=== PATIENT | male | born 1975 | race Caucasian/White ===

== ENCOUNTER 2018-09-06 02:13 | Inpatient (IN) | payer OTHER ==
[~2018-09-06] VITALS: Ht 182.9 cm; Wt 93.1 kg
[~2018-09-06 02:13] MED LIST: AMOX500C PO; BUTA1CAP29 PO; DIPH25CA58 PO; IBUP-1060 PO; LISI1TAB5 PO; ONDA4TAB7 PO; SUMA25TA3 PO; TRAM50TA PO
[2018-09-06] MEDS ORDERED: IV NORMAL SALINE 1000ML BAG 1,000 ML IV SCH (02:30)
[2018-09-06] MEDS ORDERED: fentaNYL PF VIAL 100 MCG/2 ML VIAL IV PRN ×2 (02:30→05:00)
[2018-09-06] MEDS ORDERED: ONDANSETRON PF 4 MG/2 ML VIAL. IV ONE (02:30)
--- NOTE | 2018-09-06 02:31 | PHYS DOC ---
Past Medical History Past Medical History: Hypertension, Migraines Additional Past Medical Histor: menigitis, anam mtn spotted fever Past Surgical History: Other Additional Past Surgical Histo: lip and tongue Alcohol Use: Occasionally Drug Use: None Adult General Chief Complaint Chief Complaint: ABDOMINAL PAIN HPI HPI Patient is a 43-year-old male who presents with complaint of severe right upper quadrant abdominal pain that started yesterday. Patient states that throughout the entire day he was having some degree of pain but states that when he woke up this morning the pain was severe. He rates pain at a 10 out of 10 and states that it is difficult to walk due to level of pain. He denies any nausea or vomiting. He also denies any diarrhea and has had no fever. Patient states that pain is worsened with movement and with palpation. He states that there are no alleviating factors. Review of Systems Review of Systems Constitutional: Denies fever or chills [] Respiratory: Denies cough or shortness of breath [] Cardiovascular: No additional information not addressed in HPI [] GI: Complains of right upper abdominal pain without vomiting or diarrhea [] Musculoskeletal: Denies back pain or joint pain [] All other systems were reviewed and found to be within normal limits, except as documented in this note. Current Medications Current Medications Current Medications Medications (Trade) Dose Ordered Sig/Asmita Start Time Stop Time Status Last Admin Dose Admin Fentanyl Citrate (Fentanyl 2ml Vial) 50 mcg PRN Q15MIN PRN 09/06/18 02:30 09/07/18 02:29 09/06/18 02:46 50 MCG Labetalol HCl (Normodyne Iv Push) 10 mg 1X ONCE 09/06/18 03:00 09/06/18 03:01 DC 09/06/18 03:54 10 MG Ondansetron HCl (Zofran) 4 mg 1X ONCE 09/06/18 02:30 09/06/18 02:31 DC 09/06/18 02:46 4 MG Sodium Chloride 1,000 ml @ 1,000 mls/hr Q1H 09/06/18 02:30 09/06/18 03:29 DC 09/06/18 02:46 1,000 MLS/HR Allergies Allergies Allergies Coded Allergies Type Severity Reaction Last Updated Verified haloperidol Allergy Intermediate "lock jaw" 04/10/14 Yes hydromorphone Allergy Mild Itching 07/26/15 Yes oxycodone Allergy Mild Itching 07/26/15 Yes Physical Exam Physical Exam Constitutional: Well developed, well nourished, in moderate distress. [] HENT: Normocephalic, atraumatic, bilateral external ears normal, oropharynx moist, no oral exudates, nose normal. [] Eyes: PERRLA, EOMI, conjunctiva normal, no discharge. [] Neck: Normal range of motion, no tenderness, supple, no stridor. [] Cardiovascular: Regular rate and rhythm [] Lungs & Thorax: Bilateral breath sounds clear to auscultation [] Abdomen: Bowel sounds diminished, soft, with significant tenderness to palpation in the right mid and upper abdomen. [] Skin: Warm, dry, no erythema, no rash. [] Extremities: No tenderness, no cyanosis, no clubbing, ROM intact, no edema. [] Neurologic: Alert and oriented X 3, no focal deficits noted. [] Current Patient Data Vital Signs Vital Signs Date Time Temp Pulse Resp B/P (MAP) Pulse Ox O2 Delivery O2 Flow Rate FiO2 09/06/18 04:35 74 187/131 (149) 95 Room Air 09/06/18 02:46 26 09/06/18 02:15 97.5 97.5 Lab Values Laboratory Tests Test 09/06/18 02:25 09/06/18 02:30 Urine Collection Type Unknown Urine Color Yellow Urine Clarity Clear Urine pH 6.5 Urine Specific [place] 1.015 Urine Protein Negative mg/dL (NEG-TRACE) Urine Glucose (UA) Negative mg/dL (NEG) Urine Ketones (Stick) Negative mg/dL (NEG) Urine Blood Negative (NEG) Urine Nitrite Negative (NEG) Urine Bilirubin Negative (NEG) Urine Urobilinogen Dipstick 0.2 mg/dL (0.2 mg/dL) Urine Leukocyte Esterase Negative (NEG) Urine RBC Occ /HPF (0-2) Urine WBC Occ /HPF (0-4) Urine Squamous Epithelial Cells Occ /LPF Urine Bacteria 0 /HPF (0-FEW) White Blood Count 12.8 x10^3/uL (4.0-11.0) H Red Blood Count 4.71 x10^6/uL (4.30-5.70) Hemoglobin 14.8 g/dL (13.0-17.5) Hematocrit 41.6 % (39.0-53.0) Mean Corpuscular Volume 88 fL (79-100) Mean Corpuscular Hemoglobin 31 pg (25-35) Mean Corpuscular Hemoglobin Concent 36 g/dL (31-37) Red Cell Distribution Width 13.8 % (11.5-14.5) Platelet Count 253 x10^3/uL (140-400) Neutrophils (%) (Auto) 62 % (31-73) Lymphocytes (%) (Auto) 27 % (24-48) Monocytes (%) (Auto) 8 % (0-9) Eosinophils (%) (Auto) 2 % (0-3) Basophils (%) (Auto) 1 % (0-3) Neutrophils # (Auto) 7.9 x10^3uL (1.8-7.7) H Lymphocytes # (Auto) 3.5 x10^3/uL (1.0-4.8) Monocytes # (Auto) 1.1 x10^3/uL (0.0-1.1) Eosinophils # (Auto) 0.3 x10^3/uL (0.0-0.7) Basophils # (Auto) 0.1 x10^3/uL (0.0-0.2) Sodium Level 137 mmol/L (136-145) Potassium Level 3.3 mmol/L (3.5-5.1) L Chloride Level 99 mmol/L (98-107) Carbon Dioxide Level 30 mmol/L (21-32) Anion Gap 8 (6-14) Blood Urea Nitrogen 23 mg/dL (8-26) Creatinine 1.9 mg/dL (0.7-1.3) H Estimated GFR (Cockcroft-Gault) 38.5 BUN/Creatinine Ratio 12 (6-20) Glucose Level 114 mg/dL (70-99) H Calcium Level 9.4 mg/dL (8.5-10.1) Total Bilirubin 0.4 mg/dL (0.2-1.0) Aspartate Amino Transferase (AST) 17 U/L (15-37) Alanine Aminotransferase (ALT) 30 U/L (16-63) Alkaline Phosphatase 127 U/L (46-116) H Total Protein 7.8 g/dL (6.4-8.2) Albumin 3.9 g/dL (3.4-5.0) Albumin/Globulin Ratio 1.0 (1.0-1.7) Lipase 139 U/L (73-393) Laboratory Tests 09/06/18 02:30 Laboratory Tests 09/06/18 02:30 EKG EKG [] Interpretation Time: EKG demonstrates normal sinus rhythm with rate of 79. Radiology/Procedures Radiology/Procedures [] Impressions: PROCEDURE: CT ABDOMEN PELVIS WO CONTRAST INDICATION: right upper quadrant pain COMPARISON: None. TECHNIQUE: Axial CT images obtained through the abdomen and pelvis without contrast. Limited assessment of solid organ structures and vasculature secondary to lack of intravenous contrast.. One or more of the following individualized dose reduction techniques were utilized for this examination: 1. Automated exposure control; 2. Adjustment of the mA and/or kV according to patient size; 3. Use of iterative reconstruction technique. FINDINGS: Mild dependent airspace opacities. Could be from atelectasis. Abdominal aorta is not aneurysmal. Fat-containing right greater than left inguinal hernia. Mild calcific atherosclerosis. Cystic lesion right lobe the liver measuring up to 18 mm. The gallbladder appears distended with haziness of adjacent fat. No peripancreatic fluid collection. There are some enlarged lymph nodes in the upper abdomen including nichole hepatis region. For example inferior to the liver measuring up to about 15 mm short axis. Spleen is unremarkable. Mild prominence of extrarenal pelvis bilaterally without definite radiopaque obstructive ureter stone. The urinary bladder is partially distended. Colonic diverticulosis. Small free fluid in right upper quadrant. The appendix measures up to approximately 6 mm without definite adjacent inflammation. Degenerative changes throughout spine. Scattered sclerotic foci osseous structures. IMPRESSION: 1. The gallbladder appears somewhat distended at the time of exam with haziness of the adjacent fat. Would correlate with symptoms in the region. May be helpful to obtain a follow-up ultrasound and/or nuclear hepatobiliary scan to further evaluate for gallbladder inflammation given this finding. 2. There are some enlarged lymph nodes within the upper abdomen. Could be reactive in nature but follow-up will be needed to ensure no growth to exclude neoplastic causes. Electronically signed by: Rohit Amin MD (09/06/2018 4:40 AM) [facility] [place] DICTATED and SIGNED BY: ROHIT AMIN MD DATE: 09/06/18 0430 Course & Med Decision Making Course & Med Decision Making Pertinent Labs and Imaging studies reviewed. (See chart for details) [] Dragon Disclaimer Dragon Disclaimer This electronic medical record was generated, in whole or in part, using a voice recognition dictation system. Departure Departure Impression: Primary Impression: Accelerated hypertension Additional Impressions: Right upper quadrant pain Acute kidney injury Disposition: ADMITTED INPATIENT Admitting Physician: Other Condition: IMPROVED Referrals: NO PCP (PCP) Problem Qualifiers SAMMY SAENZ Jr. DO Sep 06, 2018 02:31
[2018-09-06 02:51] LABS: BILIRUBIN,URINE NEGATIVE (NEG); CLARITY,URINE CLEAR; COLOR,URINE YELLOW; NITRITE,URINE NEGATIVE (NEG); PH,URINE 6.5; PROTEIN,URINE NEGATIVE (NEG-TRACE); UROBILINOGEN,URINE 0.2 mg/dL (0.2 mg/dL)
[2018-09-06 02:52] LABS: BASO # 0.1 x10^3/uL (0.0-0.2); BASO % 1 % (0-3); EOS # 0.3 x10^3/uL (0.0-0.7); EOS % 2 % (0-3); HEMATOCRIT 41.6 % (39.0-53.0); HEMOGLOBIN 14.8 g/dL (13.0-17.5); LYMPH # 3.5 x10^3/uL (1.0-4.8); LYMPH % 27 % (24-48); MEAN CORPUSCULAR HEMOGLOBIN 31 pg (25-35); MEAN CORPUSCULAR HGB CONC 36 g/dL (31-37); MEAN CORPUSCULAR VOLUME 88 fL (79-100); MONO # 1.1 x10^3/uL (0.0-1.1); MONO % 8 % (0-9); NEUT # 7.9 x10^3uL (1.8-7.7); NEUT % 62 % (31-73); PLATELET COUNT 253 x10^3/uL (140-400); RED BLOOD COUNT 4.71 x10^6/uL (4.30-5.70); RED CELL DISTRIBUTION WIDTH 13.8 % (11.5-14.5); WHITE BLOOD COUNT 12.8 x10^3/uL (4.0-11.0)
[2018-09-06 02:54] LABS: CALCIUM 9.4 mg/dL (8.5-10.1); CREATININE 1.9 mg/dL (0.7-1.3); GFR 38.5; POTASSIUM 3.3 mmol/L (3.5-5.1)
[2018-09-06 02:58] LABS: BACTERIA,URINE 0 /HPF (0-FEW); RBC,URINE OCC /HPF (0-2); SQUAMOUS EPITHELIAL CELL,UR OCC /LPF; WBC,URINE OCC /HPF (0-4)
[2018-09-06 02:59] LABS: ALBUMIN 3.9 g/dL (3.4-5.0); TOTAL BILIRUBIN 0.4 mg/dL (0.2-1.0); TOTAL PROTEIN 7.8 g/dL (6.4-8.2)
[2018-09-06] MEDS ORDERED: LABETALOL 20 MG/4 ML DISP.SYRIN. IVP ONE ×2 (03:00→05:15)
--- NOTE | 2018-09-06 04:44 | RAD ---
INDICATION: right upper quadrant pain COMPARISON: None. TECHNIQUE: Axial CT images obtained through the abdomen and pelvis without contrast. Limited assessment of solid organ structures and vasculature secondary to lack of intravenous contrast.. One or more of the following individualized dose reduction techniques were utilized for this examination: 1. Automated exposure control; 2. Adjustment of the mA and/or kV according to patient size; 3. Use of iterative reconstruction technique. FINDINGS: Mild dependent airspace opacities. Could be from atelectasis. Abdominal aorta is not aneurysmal. Fat-containing right greater than left inguinal hernia. Mild calcific atherosclerosis. Cystic lesion right lobe the liver measuring up to 18 mm. The gallbladder appears distended with haziness of adjacent fat. No peripancreatic fluid collection. There are some enlarged lymph nodes in the upper abdomen including nichole hepatis region. For example inferior to the liver measuring up to about 15 mm short axis. Spleen is unremarkable. Mild prominence of extrarenal pelvis bilaterally without definite radiopaque obstructive ureter stone. The urinary bladder is partially distended. Colonic diverticulosis. Small free fluid in right upper quadrant. The appendix measures up to approximately 6 mm without definite adjacent inflammation. Degenerative changes throughout spine. Scattered sclerotic foci osseous structures. IMPRESSION: 1. The gallbladder appears somewhat distended at the time of exam with haziness of the adjacent fat. Would correlate with symptoms in the region. May be helpful to obtain a follow-up ultrasound and/or nuclear hepatobiliary scan to further evaluate for gallbladder inflammation given this finding. 2. There are some enlarged lymph nodes within the upper abdomen. Could be reactive in nature but follow-up will be needed to ensure no growth to exclude neoplastic causes. Electronically signed by: Sherif Amin MD (09/06/2018 4:40 AM) [facility]
[2018-09-06] MEDS ORDERED: ONDANSETRON PF 4 MG/2 ML VIAL. IV PRN (05:00)
[2018-09-06] MEDS ORDERED: LABETALOL 20 MG/4 ML DISP.SYRIN. IVP PRN (05:15)
--- NOTE | 2018-09-06 06:05 | RAD ---
INDICATION : pain x 5 hrs COMPARISON: CT from earlier same day TECHNIQUE: Multiple ultrasound images obtained through the abdomen in grayscale and color. FINDINGS: Liver: There is some apparent heterogeneity. 17 mm cyst. Septation. Gallbladder: Gallbladder wall measures up to about 8 mm with some heterogeneity. There are some internal echoes seen within the gallbladder dependently. IVC: Partially distended at level of liver. Common Bile Duct: 4 mm at pancreatic head, partially seen. Pancreas: Largely obscured. Right Kidney: No hydronephrosis. IMPRESSION: 1. The gallbladder wall appears thickened and heterogenous. Gallbladder wall thickening is a nonspecific finding and can be seen with primary gallbladder inflammation, reactive to adjacent hepatic inflammation or systemic process such as hypoproteinemia. If more complete characterization is desired nuclear hepatobiliary scan could further evaluate for cholecystitis given this finding. There is also some internal echoes within the gallbladder which could be from some debris/sludge. Heterogenous appearance of the liver. Electronically signed by: Sherif Amin MD (09/06/2018 6:00 AM) [facility]
--- NOTE | 2018-09-06 06:42 | EKG ---
[facility] [address] [place] [address] Test Date: 2018-09-06 Test Time: 03:11:23 Pat Name: NORMA MEYER Department: Room: 263 1 Gender: M [employer] Operator: : 1975 Requested By: SAMMY SAENZ Order Number: [id number] Reading MD: Ryan Foster MD Measurements Intervals [place] Rate: 79 P: 58 NH: 142 QRS: -7 QRSD: 108 T: 22 QT: 436 QTc: 501 Interpretive Statements SINUS RHYTHM PROLONGED QTC Electronically Signed On 09-07-2018 12:08:52 [employer] by Ryan Foster MD
[2018-09-06 07:39] VITALS: BP 164/117
[2018-09-06] MEDS: IV NORMAL SALINE 1000ML BAG 1,000 ML IV SCH ×3 (08:10→21:00)
--- NOTE | 2018-09-06 08:15 | NUR ---
The patient, NORMA MEYER, 43 y/o, M admitted by VISHNU GARCIA MD, was given written information regarding hospital policies, unit procedures and contact persons. Valuables were checked
[2018-09-06] MEDS ORDERED: ONDANSETRON ODT 4 MG TAB.RAPDIS. PO PRN (08:45)
[2018-09-06] MEDS ORDERED: NICOTINE 14MG PATCH. TD PRN (08:45)
[2018-09-06] MEDS ORDERED: diphenhydrAMINE HCL 25 MG CAPSULE PO PRN (08:45)
--- NOTE | 2018-09-06 09:12 | PDOC1 ---
History and Physical Date of Admission Date of Admission DATE: 09/06/18 TIME: 09:00 Identification/Chief Complaint Chief Complaint abd pain, acute w/ nausea Source Source: Chart review, Patient History of Present Illness History of Present Illness Mr. Joyce, is a 43-year-old male admit overnight w/ severe right upper quadrant abdominal pain. Woke himfrom sleep, w. severe pain, had some mild pain for 12 hours before. He rated pain at a 10 out of 10, better now after IV meds. . He denies any nausea or vomiting. ] pain is worse with movement no fever or diarrhea, no travel. 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, Past Medical History Cardiovascular: HTN CENTRAL NERVOUS SYSTEM: Migraine Infectious disease: No pertinent hx ENT: No pertinent hx Renal/: No pertinent hx Endocrine: No pertinent hx Dermatology: No pertinent hx Past Surgical History Past Surgical History: No pertinent history Social History Smoke: <1 pack per day ALCOHOL: rare Drugs: None Current Problem List Problem List Problems Medical Problems: (1) Accelerated hypertension Status: Acute (2) Acute kidney injury Status: Acute (3) Right upper quadrant pain Status: Acute Current Medications Current Medications Current Medications Fentanyl Citrate (Fentanyl 2ml Vial) 50 mcg PRN Q15MIN PRN IV PAIN GREATER THAN 3/10 Last administered on 09/06/18at 02:46; Start 09/06/18 at 02:30; Stop at 02:29 Sodium Chloride 1,000 ml @ 1,000 mls/hr Q1H IV Last administered on 09/06/18at 02:46; Start 09/06/18 at 02:30; Stop 09/06/18 at 03:29; Status DC Ondansetron HCl (Zofran) 4 mg 1X ONCE IV Last administered on 09/06/18at 02:46 ; Start 09/06/18 at 02:30; Stop 09/06/18 at 02:31; Status DC Labetalol HCl (Normodyne Iv Push) 10 mg 1X ONCE IVP Last administered on at 03:54; Start 09/06/18 at 03:00; Stop 09/06/18 at 03:01; Status DC Labetalol HCl (Normodyne Iv Push) 10 mg 1X ONCE IVP Last administered on at 07:01; Start 09/06/18 at 05:15; Stop 09/06/18 at 05:16; Status DC Ondansetron HCl (Zofran) 4 mg PRN Q8HRS PRN IV NAUSEA/VOMITING; Start 09/06/18 at 05:00; Stop 09/07/18 at 04:59 Fentanyl Citrate (Fentanyl 2ml Vial) 50 mcg PRN Q1HR PRN IV PAIN; Start at 05:00; Stop 09/07/18 at 04:59 Sodium Chloride 1,000 ml @ 125 mls/hr Q8H IV Last administered on 09/06/18at 08 :10; Start 09/06/18 at 05:00; Stop 09/07/18 at 04:59 Labetalol HCl (Normodyne Iv Push) 10 mg PRN Q2HR PRN IVP SBP>185; Start at 05:15 Amlodipine Besylate (Norvasc) 5 mg DAILY PO ; Start 09/06/18 at 09:00 Tramadol HCl (Ultram) 50 mg PRN Q6HRS PRN PO PAIN; Start 09/06/18 at 08:45 Diphenhydramine HCl (Benadryl) 25 mg PRN Q6HRS PRN PO ITCHING; Start 09/06/18 at 08:45 Ondansetron HCl (Zofran Odt) 4 mg PRN Q8HRS PRN PO NAUSEA/VOMITING; Start 09/06 at 08:45 Nicotine (Nicoderm Cq 14mg) 1 patch PRN DAILY PRN TD SMOKING CESSATION; Start 09/06/18 at 08:45 Active Scripts Active Zofran (Ondansetron Hcl) 4 Mg Tablet 1 Tab PO Q8HRS PRN Reported Tramadol Hcl 50 Mg Tablet 1 Tab PO TID Ibuprofen 800 Mg Tablet 800 Mg PO Q6H PRN Benadryl (Diphenhydramine Hcl) 25 Mg Capsule 25 Mg PO PRN Q6HRS PRN Lisinopril-Hctz 20-12.5 Mg Tab (Lisinopril/Hydrochlorothiazide) 1 Each Tablet 1 Tab PO DAILY Allergies Allergies: Coded Allergies: haloperidol (Verified Allergy, Intermediate, "lock jaw", 04/10/14) hydromorphone (Verified Allergy, Mild, Itching, 07/26/15) LORTAB OK oxycodone (Verified Allergy, Mild, Itching, 07/26/15) LORTAB OK ROS General: No: Chills, Night Sweats, Fatigue, Malaise, Appetite, Other PSYCHOLOGICAL ROS: No: Anxiety, Behavioral Disorder, Concentration difficultie , Decreased libido, Depression, Disorientation, Hallucinations, Hostility, Irritablity, Memory difficulties, Mood Swings, Obsessive thoughts, Physical abuse, Sexual abuse, Sleep disturbances, Suicidal ideation, Other Eyes: No Blurry vision, No Decreased vision, No Double vision, No Dry eyes, No Excessive tearing, No Eye Pain, No Itchy Eyes, No Loss of vision, No Photophobia , No Scotomata, No Uses contacts, No Uses glasses, No Other HEENT: No: Heacaches, Visual Changes, Hearing change, Nasal congestion, Nasal discharge, Oral lesions, Sinus pain, Sore Throat, Epistaxis, Sneezing, Snoring, Tinnitus, Vertigo, Vocal changes, Other Respiratory: No: Cough, Hemoptysis, Orthopnea, Pleuritic Pain, Shortness of breath, SOB with excertion, Sputum Changes, Stridor, Tachypnea, Wheezing, Other Cardiovascular: No Chest Pain, No Palpitations, No Orthopnea, No Paroxysmal Noc. Dyspnea, No Edema, No Lt Headedness, No Other Gastrointestinal: No Nausea, No Vomiting, No Abdominal Pain, No Diarrhea, No Constipation, No Melena, No Hematochezia, No Other Genitourinary: No Dysuria, No Frequency, No Incontinence, No Hematuria, No Retention, No Discharge, No Urgency, No Pain, No Flank Pain, No Other, No , No , No , No , No , No , No Musculoskeletal: Yes Other; No Gait Disturbance, No Joint Pain, No Joint Stiffness, No Joint Swelling, No Muscle Pain, No Muscular Weakness, No Pain In:, No Swelling In: Neurological: No Behavorial Changes, No Bowel/Bladder ControlChng, No Confusion , No Dizziness, No Gait Disturbance, No Headaches, No Impaired Coord/balance, No Memory Loss, No Numbness/Tingling, No Seizures, No Speech Problems, No Tremors, No Visual Changes, No Weakness, No Other Skin: No Dry Skin, No Eczema, No Hair Changes, No Lumps, No Mole Changes, No Mottling, No Nail Changes, No Pruritus, No Rash, No Skin Lesion Changes, No Other, No Acne Physical Exam General: Alert, Oriented X3, Cooperative, mild distress HEENT: PERRLA, EOMI, Mucous membr. moist/pink Lungs: Clear to auscultation Heart: S1S2, no gallops, no murmurs Abdomen: Normal bowel sounds, Soft, Other (tender, guarding to palpation, right, ) Extremities: No cyanosis, No edema, Normal pulses Skin: No rashes, No breakdown, No significant lesion Neuro: Normal gait, Normal speech, Sensation intact, Cranial nerves 3-12 NL Psych/Mental Status: Mental status NL, Mood NL Vitals Vitals Vital Signs Date Time Temp Pulse Resp B/P (MAP) Pulse Ox O2 Delivery O2 Flow Rate FiO2 09/06/18 07:39 97.8 67 12 164/117 (133) 97 Room Air 97.8 Labs Labs Laboratory Tests Test 09/06/18 02:25 09/06/18 02:30 Urine Collection Type Unknown Urine Color Yellow Urine Clarity Clear Urine pH 6.5 Urine Specific [place] 1.015 Urine Protein Negative mg/dL (NEG-TRACE) Urine Glucose (UA) Negative mg/dL (NEG) Urine Ketones (Stick) Negative mg/dL (NEG) Urine Blood Negative (NEG) Urine Nitrite Negative (NEG) Urine Bilirubin Negative (NEG) Urine Urobilinogen Dipstick 0.2 mg/dL (0.2 mg/dL) Urine Leukocyte Esterase Negative (NEG) Urine RBC Occ /HPF (0-2) Urine WBC Occ /HPF (0-4) Urine Squamous Epithelial Cells Occ /LPF Urine Bacteria 0 /HPF (0-FEW) White Blood Count 12.8 x10^3/uL (4.0-11.0) Red Blood Count 4.71 x10^6/uL (4.30-5.70) Hemoglobin 14.8 g/dL (13.0-17.5) Hematocrit 41.6 % (39.0-53.0) Mean Corpuscular Volume 88 fL (79-100) Mean Corpuscular Hemoglobin 31 pg (25-35) Mean Corpuscular Hemoglobin Concent 36 g/dL (31-37) Red Cell Distribution Width 13.8 % (11.5-14.5) Platelet Count 253 x10^3/uL (140-400) Neutrophils (%) (Auto) 62 % (31-73) Lymphocytes (%) (Auto) 27 % (24-48) Monocytes (%) (Auto) 8 % (0-9) Eosinophils (%) (Auto) 2 % (0-3) Basophils (%) (Auto) 1 % (0-3) Neutrophils # (Auto) 7.9 x10^3uL (1.8-7.7) Lymphocytes # (Auto) 3.5 x10^3/uL (1.0-4.8) Monocytes # (Auto) 1.1 x10^3/uL (0.0-1.1) Eosinophils # (Auto) 0.3 x10^3/uL (0.0-0.7) Basophils # (Auto) 0.1 x10^3/uL (0.0-0.2) Sodium Level 137 mmol/L (136-145) Potassium Level 3.3 mmol/L (3.5-5.1) Chloride Level 99 mmol/L (98-107) Carbon Dioxide Level 30 mmol/L (21-32) Anion Gap 8 (6-14) Blood Urea Nitrogen 23 mg/dL (8-26) Creatinine 1.9 mg/dL (0.7-1.3) Estimated GFR (Cockcroft-Gault) 38.5 BUN/Creatinine Ratio 12 (6-20) Glucose Level 114 mg/dL (70-99) Calcium Level 9.4 mg/dL (8.5-10.1) Total Bilirubin 0.4 mg/dL (0.2-1.0) Aspartate Amino Transf (AST/SGOT) 17 U/L (15-37) Alanine Aminotransferase (ALT/SGPT) 30 U/L (16-63) Alkaline Phosphatase 127 U/L (46-116) Total Protein 7.8 g/dL (6.4-8.2) Albumin 3.9 g/dL (3.4-5.0) Albumin/Globulin Ratio 1.0 (1.0-1.7) Lipase 139 U/L (73-393) Laboratory Tests Test 09/06/18 02:25 09/06/18 02:30 Urine Collection Type Unknown Urine Color Yellow Urine Clarity Clear Urine pH 6.5 Urine Specific [place] 1.015 Urine Protein Negative mg/dL (NEG-TRACE) Urine Glucose (UA) Negative mg/dL (NEG) Urine Ketones (Stick) Negative mg/dL (NEG) Urine Blood Negative (NEG) Urine Nitrite Negative (NEG) Urine Bilirubin Negative (NEG) Urine Urobilinogen Dipstick 0.2 mg/dL (0.2 mg/dL) Urine Leukocyte Esterase Negative (NEG) Urine RBC Occ /HPF (0-2) Urine WBC Occ /HPF (0-4) Urine Squamous Epithelial Cells Occ /LPF Urine Bacteria 0 /HPF (0-FEW) White Blood Count 12.8 x10^3/uL (4.0-11.0) Red Blood Count 4.71 x10^6/uL (4.30-5.70) Hemoglobin 14.8 g/dL (13.0-17.5) Hematocrit 41.6 % (39.0-53.0) Mean Corpuscular Volume 88 fL (79-100) Mean Corpuscular Hemoglobin 31 pg (25-35) Mean Corpuscular Hemoglobin Concent 36 g/dL (31-37) Red Cell Distribution Width 13.8 % (11.5-14.5) Platelet Count 253 x10^3/uL (140-400) Neutrophils (%) (Auto) 62 % (31-73) Lymphocytes (%) (Auto) 27 % (24-48) Monocytes (%) (Auto) 8 % (0-9) Eosinophils (%) (Auto) 2 % (0-3) Basophils (%) (Auto) 1 % (0-3) Neutrophils # (Auto) 7.9 x10^3uL (1.8-7.7) Lymphocytes # (Auto) 3.5 x10^3/uL (1.0-4.8) Monocytes # (Auto) 1.1 x10^3/uL (0.0-1.1) Eosinophils # (Auto) 0.3 x10^3/uL (0.0-0.7) Basophils # (Auto) 0.1 x10^3/uL (0.0-0.2) Sodium Level 137 mmol/L (136-145) Potassium Level 3.3 mmol/L (3.5-5.1) Chloride Level 99 mmol/L (98-107) Carbon Dioxide Level 30 mmol/L (21-32) Anion Gap 8 (6-14) Blood Urea Nitrogen 23 mg/dL (8-26) Creatinine 1.9 mg/dL (0.7-1.3) Estimated GFR (Cockcroft-Gault) 38.5 BUN/Creatinine Ratio 12 (6-20) Glucose Level 114 mg/dL (70-99) Calcium Level 9.4 mg/dL (8.5-10.1) Total Bilirubin 0.4 mg/dL (0.2-1.0) Aspartate Amino Transf (AST/SGOT) 17 U/L (15-37) Alanine Aminotransferase (ALT/SGPT) 30 U/L (16-63) Alkaline Phosphatase 127 U/L (46-116) Total Protein 7.8 g/dL (6.4-8.2) Albumin 3.9 g/dL (3.4-5.0) Albumin/Globulin Ratio 1.0 (1.0-1.7) Lipase 139 U/L (73-393) VTE Prophylaxis Ordered VTE Prophylaxis Devices: Yes VTE Pharmacological Prophylaxi: Yes Assessment/Plan Assessment/Plan acute RUQ pain, poss acute leann, US not conclusive, will order HIDA scan, consult GI and gen surg. accelerated htn, prior chronic SIRS, tachypnea and leukocytosis, no fever, and vitals improved from admit without antibiotics, tobacco use disorder JULIAN RODGERS MD Sep 06, 2018 09:12
--- NOTE | 2018-09-06 09:33 | PDOC2 ---
KAYLA PADILLA [employer] 09/06/18 0933: CONSULT Date of Consult Date of Consult DATE: 09/06/18 TIME: 09:26 Reason for Consult Reason for Consult: possible cholecystitis Referring Physician Referring Physician: Dr Mtz Identification/Chief Complaint Chief Complaint abdominal pain Source Source: Chart review, Patient History of Present Illness Reason for Visit: admitted with abdominal pain. Reports started Thursday, dull, aching, last night significantly worse, RUQ, epigastric. Associated nausea, no emesis. No constipation or diarrhea. No history of similar issues. Past Medical History Cardiovascular: HTN CENTRAL NERVOUS SYSTEM: Migraine Infectious disease: No pertinent hx ENT: No pertinent hx Renal/: No pertinent hx Endocrine: No pertinent hx Dermatology: No pertinent hx Past Surgical History Past Surgical History: No pertinent history Family History Family History: Other (cholelithiasis ) Social History <1 pack per day ALCOHOL: rare Drugs: Marijuana Lives: with Family Current Problem List Problem List Problems Medical Problems: (1) Accelerated hypertension Status: Acute (2) Acute kidney injury Status: Acute (3) Right upper quadrant pain Status: Acute Current Medications Current Medications Current Medications Fentanyl Citrate (Fentanyl 2ml Vial) 50 mcg PRN Q15MIN PRN IV PAIN GREATER THAN 3/10 Last administered on 09/06/18at 02:46; Start 09/06/18 at 02:30; Stop at 02:29 Sodium Chloride 1,000 ml @ 1,000 mls/hr Q1H IV Last administered on 09/06/18at 02:46; Start 09/06/18 at 02:30; Stop 09/06/18 at 03:29; Status DC Ondansetron HCl (Zofran) 4 mg 1X ONCE IV Last administered on 09/06/18at 02:46 ; Start 09/06/18 at 02:30; Stop 09/06/18 at 02:31; Status DC Labetalol HCl (Normodyne Iv Push) 10 mg 1X ONCE IVP Last administered on at 03:54; Start 09/06/18 at 03:00; Stop 09/06/18 at 03:01; Status DC Labetalol HCl (Normodyne Iv Push) 10 mg 1X ONCE IVP Last administered on at 07:01; Start 09/06/18 at 05:15; Stop 09/06/18 at 05:16; Status DC Ondansetron HCl (Zofran) 4 mg PRN Q8HRS PRN IV NAUSEA/VOMITING; Start 09/06/18 at 05:00; Stop 09/07/18 at 04:59 Fentanyl Citrate (Fentanyl 2ml Vial) 50 mcg PRN Q1HR PRN IV PAIN; Start at 05:00; Stop 09/07/18 at 04:59 Sodium Chloride 1,000 ml @ 125 mls/hr Q8H IV Last administered on 09/06/18at 08 :10; Start 09/06/18 at 05:00; Stop 09/07/18 at 04:59 Labetalol HCl (Normodyne Iv Push) 10 mg PRN Q2HR PRN IVP SBP>185; Start at 05:15 Amlodipine Besylate (Norvasc) 5 mg DAILY PO ; Start 09/06/18 at 09:00 Tramadol HCl (Ultram) 50 mg PRN Q6HRS PRN PO PAIN; Start 09/06/18 at 08:45 Diphenhydramine HCl (Benadryl) 25 mg PRN Q6HRS PRN PO ITCHING; Start 09/06/18 at 08:45 Ondansetron HCl (Zofran Odt) 4 mg PRN Q8HRS PRN PO NAUSEA/VOMITING; Start 09/06 at 08:45 Nicotine (Nicoderm Cq 14mg) 1 patch PRN DAILY PRN TD SMOKING CESSATION; Start 09/06/18 at 08:45 Active Scripts Active Zofran (Ondansetron Hcl) 4 Mg Tablet 1 Tab PO Q8HRS PRN Reported Tramadol Hcl 50 Mg Tablet 1 Tab PO TID Ibuprofen 800 Mg Tablet 800 Mg PO Q6H PRN Benadryl (Diphenhydramine Hcl) 25 Mg Capsule 25 Mg PO PRN Q6HRS PRN Lisinopril-Hctz 20-12.5 Mg Tab (Lisinopril/Hydrochlorothiazide) 1 Each Tablet 1 Tab PO DAILY Allergies Allergies: Coded Allergies: haloperidol (Verified Allergy, Intermediate, "lock jaw", 04/10/14) hydromorphone (Verified Allergy, Mild, Itching, 07/26/15) LORTAB OK oxycodone (Verified Allergy, Mild, Itching, 07/26/15) LORTAB OK ROS General: No: Chills, Other (fevers) PSYCHOLOGICAL ROS: No: Anxiety, Depression Eyes: No Blurry vision, No Double vision HEENT: No: Heacaches, Sore Throat Hematological and Lymphatic: No: Bleeding Problems, Blood Clots Respiratory: No: Cough, Shortness of breath Cardiovascular: No Chest Pain, No Palpitations Gastrointestinal: Yes Other (see hpi) Genitourinary: No Dysuria, No Hematuria Musculoskeletal: No Joint Pain, No Muscle Pain Neurological: No Confusion, No Impaired Coord/balance Skin: No Pruritus, No Rash Physical Exam General: Alert, Oriented X3, Cooperative, No acute distress HEENT: PERRLA, Mucous membr. moist/pink Lungs: Clear to auscultation, Normal air movement Heart: Regular rate, Normal S1, Normal S2, No murmurs Abdomen: Soft, Other (TTP epigastric, RUQ) Extremities: No clubbing, No cyanosis Skin: No rashes, No breakdown Neuro: Normal gait, Normal speech Psych/Mental Status: Mental status NL, Mood NL MUSCULOSKELETAL: No joint tenderness, No deformity Vitals VITALS Vital Signs Date Time Temp Pulse Resp B/P (MAP) Pulse Ox O2 Delivery O2 Flow Rate FiO2 09/06/18 07:45 Room Air 09/06/18 07:39 97.8 67 12 164/117 (133) 97 97.8 Labs Labs Laboratory Tests Test 09/06/18 02:25 09/06/18 02:30 Urine Collection Type Unknown Urine Color Yellow Urine Clarity Clear Urine pH 6.5 Urine Specific [place] 1.015 Urine Protein Negative mg/dL (NEG-TRACE) Urine Glucose (UA) Negative mg/dL (NEG) Urine Ketones (Stick) Negative mg/dL (NEG) Urine Blood Negative (NEG) Urine Nitrite Negative (NEG) Urine Bilirubin Negative (NEG) Urine Urobilinogen Dipstick 0.2 mg/dL (0.2 mg/dL) Urine Leukocyte Esterase Negative (NEG) Urine RBC Occ /HPF (0-2) Urine WBC Occ /HPF (0-4) Urine Squamous Epithelial Cells Occ /LPF Urine Bacteria 0 /HPF (0-FEW) White Blood Count 12.8 x10^3/uL (4.0-11.0) Red Blood Count 4.71 x10^6/uL (4.30-5.70) Hemoglobin 14.8 g/dL (13.0-17.5) Hematocrit 41.6 % (39.0-53.0) Mean Corpuscular Volume 88 fL (79-100) Mean Corpuscular Hemoglobin 31 pg (25-35) Mean Corpuscular Hemoglobin Concent 36 g/dL (31-37) Red Cell Distribution Width 13.8 % (11.5-14.5) Platelet Count 253 x10^3/uL (140-400) Neutrophils (%) (Auto) 62 % (31-73) Lymphocytes (%) (Auto) 27 % (24-48) Monocytes (%) (Auto) 8 % (0-9) Eosinophils (%) (Auto) 2 % (0-3) Basophils (%) (Auto) 1 % (0-3) Neutrophils # (Auto) 7.9 x10^3uL (1.8-7.7) Lymphocytes # (Auto) 3.5 x10^3/uL (1.0-4.8) Monocytes # (Auto) 1.1 x10^3/uL (0.0-1.1) Eosinophils # (Auto) 0.3 x10^3/uL (0.0-0.7) Basophils # (Auto) 0.1 x10^3/uL (0.0-0.2) Sodium Level 137 mmol/L (136-145) Potassium Level 3.3 mmol/L (3.5-5.1) Chloride Level 99 mmol/L (98-107) Carbon Dioxide Level 30 mmol/L (21-32) Anion Gap 8 (6-14) Blood Urea Nitrogen 23 mg/dL (8-26) Creatinine 1.9 mg/dL (0.7-1.3) Estimated GFR (Cockcroft-Gault) 38.5 BUN/Creatinine Ratio 12 (6-20) Glucose Level 114 mg/dL (70-99) Calcium Level 9.4 mg/dL (8.5-10.1) Total Bilirubin 0.4 mg/dL (0.2-1.0) Aspartate Amino Transf (AST/SGOT) 17 U/L (15-37) Alanine Aminotransferase (ALT/SGPT) 30 U/L (16-63) Alkaline Phosphatase 127 U/L (46-116) Total Protein 7.8 g/dL (6.4-8.2) Albumin 3.9 g/dL (3.4-5.0) Albumin/Globulin Ratio 1.0 (1.0-1.7) Lipase 139 U/L (73-393) Laboratory Tests Test 09/06/18 02:25 09/06/18 02:30 Urine Collection Type Unknown Urine Color Yellow Urine Clarity Clear Urine pH 6.5 Urine Specific [place] 1.015 Urine Protein Negative mg/dL (NEG-TRACE) Urine Glucose (UA) Negative mg/dL (NEG) Urine Ketones (Stick) Negative mg/dL (NEG) Urine Blood Negative (NEG) Urine Nitrite Negative (NEG) Urine Bilirubin Negative (NEG) Urine Urobilinogen Dipstick 0.2 mg/dL (0.2 mg/dL) Urine Leukocyte Esterase Negative (NEG) Urine RBC Occ /HPF (0-2) Urine WBC Occ /HPF (0-4) Urine Squamous Epithelial Cells Occ /LPF Urine Bacteria 0 /HPF (0-FEW) White Blood Count 12.8 x10^3/uL (4.0-11.0) Red Blood Count 4.71 x10^6/uL (4.30-5.70) Hemoglobin 14.8 g/dL (13.0-17.5) Hematocrit 41.6 % (39.0-53.0) Mean Corpuscular Volume 88 fL (79-100) Mean Corpuscular Hemoglobin 31 pg (25-35) Mean Corpuscular Hemoglobin Concent 36 g/dL (31-37) Red Cell Distribution Width 13.8 % (11.5-14.5) Platelet Count 253 x10^3/uL (140-400) Neutrophils (%) (Auto) 62 % (31-73) Lymphocytes (%) (Auto) 27 % (24-48) Monocytes (%) (Auto) 8 % (0-9) Eosinophils (%) (Auto) 2 % (0-3) Basophils (%) (Auto) 1 % (0-3) Neutrophils # (Auto) 7.9 x10^3uL (1.8-7.7) Lymphocytes # (Auto) 3.5 x10^3/uL (1.0-4.8) Monocytes # (Auto) 1.1 x10^3/uL (0.0-1.1) Eosinophils # (Auto) 0.3 x10^3/uL (0.0-0.7) Basophils # (Auto) 0.1 x10^3/uL (0.0-0.2) Sodium Level 137 mmol/L (136-145) Potassium Level 3.3 mmol/L (3.5-5.1) Chloride Level 99 mmol/L (98-107) Carbon Dioxide Level 30 mmol/L (21-32) Anion Gap 8 (6-14) Blood Urea Nitrogen 23 mg/dL (8-26) Creatinine 1.9 mg/dL (0.7-1.3) Estimated GFR (Cockcroft-Gault) 38.5 BUN/Creatinine Ratio 12 (6-20) Glucose Level 114 mg/dL (70-99) Calcium Level 9.4 mg/dL (8.5-10.1) Total Bilirubin 0.4 mg/dL (0.2-1.0) Aspartate Amino Transf (AST/SGOT) 17 U/L (15-37) Alanine Aminotransferase (ALT/SGPT) 30 U/L (16-63) Alkaline Phosphatase 127 U/L (46-116) Total Protein 7.8 g/dL (6.4-8.2) Albumin 3.9 g/dL (3.4-5.0) Albumin/Globulin Ratio 1.0 (1.0-1.7) Lipase 139 U/L (73-393) Assessment/Plan Assessment/Plan abdominal pain--CT and US with gallbladder wall thickening, no stones, possible debride/sludge BRANDI will check HIDA, GI consult pending JOSEPH HASTINGS MD 09/06/18 1431: CONSULT Assessment/Plan Assessment/Plan Pt seen and examined. Agree with Ms. Padilla's note Pt with c/o RUQ pain, improved TTP RUQ, moderate PIPPDA-gallbladder is demonstrated, ejection fraction 32%, slightly low Given pt pain, history and lack of another source, favor proceeding with cholecystectomy in AM R/R/B/A d/w pt and pt's supportive . Risks, including, but not limited to: bleeding, infection, damage to surrounding structures, risk of anesthesia. They appear to understand, their questions are answered and they elect to proceed. Thanks for consult! KAYLA PADILLA May [employer] Sep 06, 2018 09:33 JOSEPH HASTINGS MD Sep 06, 2018 14:31
--- NOTE | 2018-09-06 10:49 | PDOC2 ---
GI CONSULT Reason For Consult: cholelithiasis, poss cystitis HPI: HPI: 43 y/o male seen in [facility] w/ Dr. Alva during HIDA scan. Reports acute onset of upper/RUQ abd pain last night, no precipitating events, no similar episodes. Some nausea w/o vomiting, no diarrhea. Currently uncomfortable w/ back pain from laying on hard table for imaging. PMH: PMH: HTN, HLD, migraines, RMSF, diverticulosis lumbar puncture FH: Family History: Other (mother, brother - GB disease) Social History: Smoke: <1 pack per day ALCOHOL: rare Drugs: Marijuana ROS: GEN: Denies fevers, chills, sweats HEENT: Denies blurred vision, sore throat CV: Denies chest pain RESP: Denies shortness of air, cough GI: Per HPI : Denies hematuria, dysuria ENDO: Denies weight changes NEURO: Denies confusion, dizziness MSK: Denies weakness, joint pain/swelling SKIN: Denies jaundice, pruritus Vitals: Vitals: Vital Signs Date Time Temp Pulse Resp B/P (MAP) Pulse Ox O2 Delivery O2 Flow Rate FiO2 09/06/18 07:45 Room Air 09/06/18 07:39 97.8 67 12 164/117 (133) 97 97.8 Labs: Labs: Laboratory Tests Test 09/06/18 02:25 09/06/18 02:30 Urine Collection Type Unknown Urine Color Yellow Urine Clarity Clear Urine pH 6.5 Urine Specific [place] 1.015 Urine Protein Negative mg/dL (NEG-TRACE) Urine Glucose (UA) Negative mg/dL (NEG) Urine Ketones (Stick) Negative mg/dL (NEG) Urine Blood Negative (NEG) Urine Nitrite Negative (NEG) Urine Bilirubin Negative (NEG) Urine Urobilinogen Dipstick 0.2 mg/dL (0.2 mg/dL) Urine Leukocyte Esterase Negative (NEG) Urine RBC Occ /HPF (0-2) Urine WBC Occ /HPF (0-4) Urine Squamous Epithelial Cells Occ /LPF Urine Bacteria 0 /HPF (0-FEW) White Blood Count 12.8 x10^3/uL (4.0-11.0) Red Blood Count 4.71 x10^6/uL (4.30-5.70) Hemoglobin 14.8 g/dL (13.0-17.5) Hematocrit 41.6 % (39.0-53.0) Mean Corpuscular Volume 88 fL (79-100) Mean Corpuscular Hemoglobin 31 pg (25-35) Mean Corpuscular Hemoglobin Concent 36 g/dL (31-37) Red Cell Distribution Width 13.8 % (11.5-14.5) Platelet Count 253 x10^3/uL (140-400) Neutrophils (%) (Auto) 62 % (31-73) Lymphocytes (%) (Auto) 27 % (24-48) Monocytes (%) (Auto) 8 % (0-9) Eosinophils (%) (Auto) 2 % (0-3) Basophils (%) (Auto) 1 % (0-3) Neutrophils # (Auto) 7.9 x10^3uL (1.8-7.7) Lymphocytes # (Auto) 3.5 x10^3/uL (1.0-4.8) Monocytes # (Auto) 1.1 x10^3/uL (0.0-1.1) Eosinophils # (Auto) 0.3 x10^3/uL (0.0-0.7) Basophils # (Auto) 0.1 x10^3/uL (0.0-0.2) Sodium Level 137 mmol/L (136-145) Potassium Level 3.3 mmol/L (3.5-5.1) Chloride Level 99 mmol/L (98-107) Carbon Dioxide Level 30 mmol/L (21-32) Anion Gap 8 (6-14) Blood Urea Nitrogen 23 mg/dL (8-26) Creatinine 1.9 mg/dL (0.7-1.3) Estimated GFR (Cockcroft-Gault) 38.5 BUN/Creatinine Ratio 12 (6-20) Glucose Level 114 mg/dL (70-99) Calcium Level 9.4 mg/dL (8.5-10.1) Total Bilirubin 0.4 mg/dL (0.2-1.0) Aspartate Amino Transf (AST/SGOT) 17 U/L (15-37) Alanine Aminotransferase (ALT/SGPT) 30 U/L (16-63) Alkaline Phosphatase 127 U/L (46-116) Total Protein 7.8 g/dL (6.4-8.2) Albumin 3.9 g/dL (3.4-5.0) Albumin/Globulin Ratio 1.0 (1.0-1.7) Lipase 139 U/L (73-393) Allergies: Coded Allergies: haloperidol (Verified Allergy, Intermediate, "lock jaw", 04/10/14) hydromorphone (Verified Allergy, Mild, Itching, 07/26/15) LORTAB OK oxycodone (Verified Allergy, Mild, Itching, 07/26/15) LORTAB OK Medications: Current Medications Medications (Trade) Dose Ordered Sig/Asmita Route PRN Reason Start Time Stop Time Status Last Admin Dose Admin Fentanyl Citrate (Fentanyl 2ml Vial) 50 mcg PRN Q15MIN PRN IV PAIN GREATER THAN 3/10 09/06/18 02:30 09/07/18 02:29 09/06/18 02:46 Sodium Chloride 1,000 ml @ 1,000 mls/hr Q1H IV 09/06/18 02:30 09/06/18 03:29 DC 09/06/18 02:46 Ondansetron HCl (Zofran) 4 mg 1X ONCE IV 09/06/18 02:30 09/06/18 02:31 DC 09/06/18 02:46 Labetalol HCl (Normodyne Iv Push) 10 mg 1X ONCE IVP 09/06/18 03:00 09/06/18 03:01 DC 09/06/18 03:54 Labetalol HCl (Normodyne Iv Push) 10 mg 1X ONCE IVP 09/06/18 05:15 09/06/18 05:16 DC 09/06/18 07:01 Sodium Chloride 1,000 ml @ 125 mls/hr Q8H IV 09/06/18 05:00 09/07/18 04:59 09/06/18 08:10 Imaging: Imaging: CT A/P IMPRESSION: 1. The gallbladder appears somewhat distended at the time of exam with haziness of the adjacent fat. Would correlate with symptoms in the region. May be helpful to obtain a follow-up ultrasound and/or nuclear hepatobiliary scan to further evaluate for gallbladder inflammation given this finding. 2. There are some enlarged lymph nodes within the upper abdomen. Could be reactive in nature but follow-up will be needed to ensure no growth to exclude neoplastic causes. Abd US IMPRESSION: 1. The gallbladder wall appears thickened and heterogenous. Gallbladder wall thickening is a nonspecific finding and can be seen with primary gallbladder inflammation, reactive to adjacent hepatic inflammation or systemic process such as hypoproteinemia. If more complete characterization is desired nuclear hepatobiliary scan could further evaluate for cholecystitis given this finding. There is also some internal echoes within the gallbladder which could be from some debris/sludge. Heterogenous appearance of the liver. Renal US IMPRESSION: 1. Small left renal cyst. 2. The kidneys are otherwise unremarkable. PE: GEN: NAD - undergoing HIDA scan HEENT: Atraumatic, PERRL LUNGS: room air HEART: RRR SKIN: No rashes, no jaundice NEURO/PSYCH: A & O �3 A/P: A/P: Abd pain HTN, leukocytosis, BRANDI Abnormal GB imaging Diverticulosis -- Await HIDA, consider EGD if indicated. FRANCIS WILLS Sep 06, 2018 10:49
--- NOTE | 2018-09-06 10:57 | RAD ---
Renal ultrasound, 09/06/2018: HISTORY: Acute renal failure The right kidney measures 10.6 cm in length as does the left kidney. There is no evidence of hydronephrosis. There is a 1.7 cm cyst in the upper pole of the left kidney. It is not optimally defined due to overlying bowel. No other renal mass is seen. No abnormal perinephric process is evident. Limited views of the partially filled urinary bladder show no abnormality. IMPRESSION: 1. Small left renal cyst. 2. The kidneys are otherwise unremarkable. Electronically signed by: Je Fernandez MD (09/06/2018 10:52 AM) [facility]
[2018-09-06] MEDS ORDERED: SINCALIDE 1.89 MCG in IV NORMAL SALINE 50ML 30 ML IV ONE (11:30)
[2018-09-06] MEDS: traMADol 50 MG TABLET PO PRN (12:35)
[2018-09-06] MEDS: amLODIPine BESYLATE 5 MG TABLET PO SCH (12:36)
--- NOTE | 2018-09-06 12:47 | NUR ---
SS following for discharge planning. SS reviewed pt chart. Pt is from home with spouse and is currently on room air. No discharge needs noted at this time. SS will continue to follow for pending discharge needs.
--- NOTE | 2018-09-06 13:51 | RAD ---
HEPATOBILIARY SCAN WITH EJECTION FRACTION 09/06/2018 1:45 PM History: right upper quandrant pain for 1 day. 1.89mcg CCK given IV over 30 minutes Procedure: Serial static images are obtained of the liver and biliary system in the frontal projection following IV administration of 5.4 mCi of Technetium 99m Choletec. After filling of the gallbladder, 1.9 mcg of sincalide were infused over 30 minutes and dynamic imaging continued over this period. The gallbladder ejection fraction was calculated. Findings: There is prompt hepatic clearance of tracer from the blood pool. There is homogeneous distribution throughout the liver. No scintigraphic evidence of acute cholecystitis is seen. The gallbladder ejection fraction measures 32% (normal gallbladder EF is 35% or greater). IMPRESSION: 1. The cystic duct and common bile duct are patent. No scintigraphic evidence of acute cholecystitis. 2. The gallbladder ejection fraction is mildly low measuring 32 %. Findings most commonly indicate chronic cholecystitis or gallbladder dyskinesia. Electronically signed by: Robert Boyd MD (09/06/2018 1:47 PM) [id number]
[2018-09-06 14:40] VITALS: BP 195/124
[2018-09-06] MEDS: hydrALAZINE 20 MG/ML VIAL. IVP PRN ×2 (14:48→20:52)
[2018-09-06] MEDS ORDERED: SUMAtriptan SUCC 6 MG/0.5 ML VIAL. SQ ONE (15:30)
[2018-09-06 16:15] VITALS: BP 151/89
--- NOTE | 2018-09-06 16:59 | NUR ---
RN NOTE patient given education information for lap leann 09/07/18, norvasc and the nuc med scan
[2018-09-06] MEDS: CYCLOBENZAPRINE 10 MG TABLET. PO PRN (17:46)
[2018-09-06 19:00] VITALS: BP 168/112
[2018-09-06 23:00] VITALS: BP 156/103
[2018-09-07] VITALS (12 sets, daily range): BP systolic 116–175; BP diastolic 69–103
[2018-09-07 04:50] LABS: BASO # 0.1 x10^3/uL (0.0-0.2); BASO % 1 % (0-3); EOS # 0.2 x10^3/uL (0.0-0.7); EOS % 2 % (0-3); HEMATOCRIT 40.2 % (39.0-53.0); HEMOGLOBIN 14.4 g/dL (13.0-17.5); LYMPH # 2.3 x10^3/uL (1.0-4.8); LYMPH % 15 % (24-48); MEAN CORPUSCULAR HEMOGLOBIN 32 pg (25-35); MEAN CORPUSCULAR HGB CONC 36 g/dL (31-37); MEAN CORPUSCULAR VOLUME 89 fL (79-100); MONO # 0.9 x10^3/uL (0.0-1.1); MONO % 6 % (0-9); NEUT # 11.3 x10^3uL (1.8-7.7); NEUT % 76 % (31-73); PLATELET COUNT 237 x10^3/uL (140-400); RED BLOOD COUNT 4.53 x10^6/uL (4.30-5.70); RED CELL DISTRIBUTION WIDTH 13.7 % (11.5-14.5); WHITE BLOOD COUNT 14.7 x10^3/uL (4.0-11.0)
[2018-09-07 05:01] LABS: ALBUMIN 3.4 g/dL (3.4-5.0); CALCIUM 8.6 mg/dL (8.5-10.1); CREATININE 1.4 mg/dL (0.7-1.3); GFR 54.8; MAGNESIUM 1.5 mg/dL (1.8-2.4); POTASSIUM 3.2 mmol/L (3.5-5.1); TOTAL BILIRUBIN 0.7 mg/dL (0.2-1.0); TOTAL PROTEIN 6.9 g/dL (6.4-8.2)
[2018-09-07] MEDS ORDERED: HEPARIN 1,000 UNIT in IV NORMAL SALINE 1,000 ML for SURG PERIOP IRR ONE (06:00)
[2018-09-07] MEDS ORDERED: SURGICEL HEMOSTAT 2X3 EACH. ONE (06:44)
[2018-09-07] MEDS ORDERED: BUPIVAC MPF-EPI 0.5%-1:200000 30 ML VIAL. ONE (06:44)
[2018-09-07] MEDS ORDERED: IOHEXOL 300 MG/ML 100ML VIAL. ONE (06:45)
[2018-09-07] MEDS ORDERED: BISACODYL 10 MG SUPP.RECT. ONE (06:45)
[2018-09-07] MEDS ORDERED: ONDANSETRON PF 4 MG/2 ML VIAL. IV PRN ×2 (07:00→09:00)
[2018-09-07] MEDS ORDERED: fentaNYL PF VIAL 100 MCG/2 ML VIAL IV PRN (07:00)
[2018-09-07] MEDS ORDERED: IV RINGERS,LACTATED 1000ML 1,000 ML IV SCH (07:00)
[2018-09-07] MEDS ORDERED: LIDOCAINE 1% PF 2 ML VIAL. ID PRN (07:00)
[2018-09-07] MEDS ORDERED: PROCHLORPERAZINE 10 MG/2 ML VIAL. IV PRN (07:00)
[2018-09-07] MEDS ORDERED: MIDAZOLAM HCL/PF 2 MG/2 ML VIAL. ONE (07:22)
[2018-09-07] MEDS ORDERED: fentaNYL PF VIAL 250 MCG/5 ML VIAL ONE (07:22)
[2018-09-07] MEDS ORDERED: ROCURONIUM 50 MG/5 ML VIAL. ONE (07:23)
--- NOTE | 2018-09-07 07:42 | PDOC ---
SURGICAL PROGRESS NOTE Subjective 43 yo M with RUQ pain, persistent CT, US and PIPPDA suggestive, but not definitive for biliary disease. Pt with persistent pain RUQ, and TTP WBC increased to 14 this AM. Recommend proceeding with laparoscopic cholecystectomy with cholangiogram, possible open, despite lacking a definitive diagnosis, given increasing WBC, persistent localized pain. R/R/B/A d/w pt and pt's supportive . Risks, including, but not limited to: bleeding, infection, damage to surrounding structures, risk of anesthesia, risk of open, and certainly possibility of this not being curative. They appear to understand, their questions are answered and they elect to proceed. Vital Signs Vital Signs Date Time Temp Pulse Resp B/P (MAP) Pulse Ox O2 Delivery O2 Flow Rate FiO2 09/07/18 03:00 98.5 73 18 175/103 (127) 99 Room Air 98.5 I&O Intake and Output 09/07/18 07:01 Output Total 250 ml Balance -250 ml Output Urine Total 250 ml # Voids 2 Labs Laboratory Tests Test 09/06/18 02:25 09/06/18 02:30 09/07/18 04:15 Urine Collection Type Unknown Urine Color Yellow Urine Clarity Clear Urine pH 6.5 Urine Specific [place] 1.015 Urine Protein Negative mg/dL (NEG-TRACE) Urine Glucose (UA) Negative mg/dL (NEG) Urine Ketones (Stick) Negative mg/dL (NEG) Urine Blood Negative (NEG) Urine Nitrite Negative (NEG) Urine Bilirubin Negative (NEG) Urine Urobilinogen Dipstick 0.2 mg/dL (0.2 mg/dL) Urine Leukocyte Esterase Negative (NEG) Urine RBC Occ /HPF (0-2) Urine WBC Occ /HPF (0-4) Urine Squamous Epithelial Cells Occ /LPF Urine Bacteria 0 /HPF (0-FEW) Urine Random Creatinine 76.0 mg/dL (Not Estab.) Urine Random Total Protein 15.4 mg/dL (Not Estab.) White Blood Count 12.8 x10^3/uL (4.0-11.0) 14.7 x10^3/uL (4.0-11.0) Red Blood Count 4.71 x10^6/uL (4.30-5.70) 4.53 x10^6/uL (4.30-5.70) Hemoglobin 14.8 g/dL (13.0-17.5) 14.4 g/dL (13.0-17.5) Hematocrit 41.6 % (39.0-53.0) 40.2 % (39.0-53.0) Mean Corpuscular Volume 88 fL (79-100) 89 fL (79-100) Mean Corpuscular Hemoglobin 31 pg (25-35) 32 pg (25-35) Mean Corpuscular Hemoglobin Concent 36 g/dL (31-37) 36 g/dL (31-37) Red Cell Distribution Width 13.8 % (11.5-14.5) 13.7 % (11.5-14.5) Platelet Count 253 x10^3/uL (140-400) 237 x10^3/uL (140-400) Neutrophils (%) (Auto) 62 % (31-73) 76 % (31-73) Lymphocytes (%) (Auto) 27 % (24-48) 15 % (24-48) Monocytes (%) (Auto) 8 % (0-9) 6 % (0-9) Eosinophils (%) (Auto) 2 % (0-3) 2 % (0-3) Basophils (%) (Auto) 1 % (0-3) 1 % (0-3) Neutrophils # (Auto) 7.9 x10^3uL (1.8-7.7) 11.3 x10^3uL (1.8-7.7) Lymphocytes # (Auto) 3.5 x10^3/uL (1.0-4.8) 2.3 x10^3/uL (1.0-4.8) Monocytes # (Auto) 1.1 x10^3/uL (0.0-1.1) 0.9 x10^3/uL (0.0-1.1) Eosinophils # (Auto) 0.3 x10^3/uL (0.0-0.7) 0.2 x10^3/uL (0.0-0.7) Basophils # (Auto) 0.1 x10^3/uL (0.0-0.2) 0.1 x10^3/uL (0.0-0.2) Sodium Level 137 mmol/L (136-145) 138 mmol/L (136-145) Potassium Level 3.3 mmol/L (3.5-5.1) 3.2 mmol/L (3.5-5.1) Chloride Level 99 mmol/L (98-107) 103 mmol/L (98-107) Carbon Dioxide Level 30 mmol/L (21-32) 25 mmol/L (21-32) Anion Gap 8 (6-14) 10 (6-14) Blood Urea Nitrogen 23 mg/dL (8-26) 12 mg/dL (8-26) Creatinine 1.9 mg/dL (0.7-1.3) 1.4 mg/dL (0.7-1.3) Estimated GFR (Cockcroft-Gault) 38.5 54.8 BUN/Creatinine Ratio 12 (6-20) 9 (6-20) Glucose Level 114 mg/dL (70-99) 108 mg/dL (70-99) Calcium Level 9.4 mg/dL (8.5-10.1) 8.6 mg/dL (8.5-10.1) Total Bilirubin 0.4 mg/dL (0.2-1.0) 0.7 mg/dL (0.2-1.0) Aspartate Amino Transf (AST/SGOT) 17 U/L (15-37) 11 U/L (15-37) Alanine Aminotransferase (ALT/SGPT) 30 U/L (16-63) 25 U/L (16-63) Alkaline Phosphatase 127 U/L (46-116) 115 U/L (46-116) Total Protein 7.8 g/dL (6.4-8.2) 6.9 g/dL (6.4-8.2) Albumin 3.9 g/dL (3.4-5.0) 3.4 g/dL (3.4-5.0) Albumin/Globulin Ratio 1.0 (1.0-1.7) 1.0 (1.0-1.7) Lipase 139 U/L (73-393) Magnesium Level 1.5 mg/dL (1.8-2.4) Laboratory Tests Test 09/07/18 04:15 White Blood Count 14.7 x10^3/uL (4.0-11.0) Red Blood Count 4.53 x10^6/uL (4.30-5.70) Hemoglobin 14.4 g/dL (13.0-17.5) Hematocrit 40.2 % (39.0-53.0) Mean Corpuscular Volume 89 fL (79-100) Mean Corpuscular Hemoglobin 32 pg (25-35) Mean Corpuscular Hemoglobin Concent 36 g/dL (31-37) Red Cell Distribution Width 13.7 % (11.5-14.5) Platelet Count 237 x10^3/uL (140-400) Neutrophils (%) (Auto) 76 % (31-73) Lymphocytes (%) (Auto) 15 % (24-48) Monocytes (%) (Auto) 6 % (0-9) Eosinophils (%) (Auto) 2 % (0-3) Basophils (%) (Auto) 1 % (0-3) Neutrophils # (Auto) 11.3 x10^3uL (1.8-7.7) Lymphocytes # (Auto) 2.3 x10^3/uL (1.0-4.8) Monocytes # (Auto) 0.9 x10^3/uL (0.0-1.1) Eosinophils # (Auto) 0.2 x10^3/uL (0.0-0.7) Basophils # (Auto) 0.1 x10^3/uL (0.0-0.2) Sodium Level 138 mmol/L (136-145) Potassium Level 3.2 mmol/L (3.5-5.1) Chloride Level 103 mmol/L (98-107) Carbon Dioxide Level 25 mmol/L (21-32) Anion Gap 10 (6-14) Blood Urea Nitrogen 12 mg/dL (8-26) Creatinine 1.4 mg/dL (0.7-1.3) Estimated GFR (Cockcroft-Gault) 54.8 BUN/Creatinine Ratio 9 (6-20) Glucose Level 108 mg/dL (70-99) Calcium Level 8.6 mg/dL (8.5-10.1) Magnesium Level 1.5 mg/dL (1.8-2.4) Total Bilirubin 0.7 mg/dL (0.2-1.0) Aspartate Amino Transf (AST/SGOT) 11 U/L (15-37) Alanine Aminotransferase (ALT/SGPT) 25 U/L (16-63) Alkaline Phosphatase 115 U/L (46-116) Total Protein 6.9 g/dL (6.4-8.2) Albumin 3.4 g/dL (3.4-5.0) Albumin/Globulin Ratio 1.0 (1.0-1.7) Problem List Problems Medical Problems: (1) Accelerated hypertension Status: Acute (2) Acute kidney injury Status: Acute (3) Right upper quadrant pain Status: Acute JOSEPH HASTINGS MD Sep 07, 2018 07:42
[2018-09-07] MEDS ORDERED: hydrALAZINE 20 MG/ML VIAL. ONE (07:59)
[2018-09-07] MEDS ORDERED: PROPOFOL 20 ML IV ONE (08:20)
[2018-09-07] MEDS ORDERED: ONDANSETRON PF 4 MG/2 ML VIAL. ONE (08:20)
[2018-09-07] MEDS ORDERED: LIDOCAINE 2% PF 5 ML VIAL. ONE (08:20)
[2018-09-07] MEDS ORDERED: DEXAMETHASONE SOD PHOS 20 MG/5 ML VIAL. ONE (08:20)
[2018-09-07] MEDS ORDERED: PHENYLEPHRINE in 0.9% NACL PF 1 MG/10 ML SYRINGE. IV ONE (08:29)
[2018-09-07] MEDS ORDERED: LABETALOL 20 MG/4 ML DISP.SYRIN. IVP ONE (08:30)
[2018-09-07] MEDS ORDERED: NEOSTIGMINE 10 MG/10 ML VIAL. ONE (08:40)
[2018-09-07] MEDS ORDERED: GLYCOPYRROLATE 1 MG/5 ML VIAL. ONE (08:40)
--- NOTE | 2018-09-07 08:43 | RAD ---
Intraoperative cholangiogram, 09/07/2018: HISTORY: Cholecystectomy 3 spot films from surgery are presented for review. Contrast has been injected into the cystic duct remnant. 0.18 minutes of fluoroscopy time was utilized. There is good flow contrast into the duodenum at the ampulla. The common bile duct is of normal caliber with no filling defects seen to suggest a retained calculus. The intrahepatic ducts are unremarkable. No contrast extravasation is seen. IMPRESSION: No significant abnormality is detected. Electronically signed by: Je Fernandez MD (09/07/2018 8:38 AM) [facility]
--- NOTE | 2018-09-07 08:57 | PDOC4 ---
OPERATIVE NOTE Date: Date: Sep 07, 2018 Pre-Op Diagnosis: RUQ pain, concern for biliary disease Post-Op Diagnosis: cholecystitis Procedure Performed: laparoscopic cholecystectomy with cholangiogram Surgeon: Carmelo Hastings Anesthesia Type: GETA plus local Blood Loss: 50 Specimans Obtained: gallbladder Findings: indurated, adherent gallbladder wall, normal cholangiogram Complications: none Operative Note: After obtaining informed consent, patient was taken to OR, induced under GETA and prepped in the usual fashion. 5 mm port placed umbilical and RUQ, 12 port placed epigastric, all under laparoscopic guidance. Abdominal cavity was explored and otherwise unremarkable. Pt does have a left inguinal hernia without viscera. Gallbladder was adherent to duodenum and omentum and noted to have indurated wall with a normal liver. Adhesions taken down using sharp dissection. Duodenum normal in appearance. Critical view dissected out. Cystic artery ligated and divided as it was anterior. Cholangiogram obtained and normal, although does appear to have spasm of ampulla, initially. Cystic duct ligated with clips and hemolok. Gallbladder taken off fossa using cautery , placed in bag, delivered and sent to pathology for evaluation. Copious irrigation. No evidence of bleeding or other pathology. Ports removed without bleeding. Fascia repaired with 0 vicryl. Skin repaired with 4 0 monocryl. Dressing applied. Patient tolerated procedure well and sent to PACU in stable condition. All counts correct. No immediate complications. Wound class is 2. JOSEPH HASTINGS MD Sep 07, 2018 08:57
[2018-09-07] MEDS ORDERED: 0.9 % SODIUM CHLORIDE 10 ML DISP.SYRIN. IV PRN (09:00)
[2018-09-07] MEDS ORDERED: HYDROcodone/APAP 5/325MG 1 TAB TABLET PO PRN (09:00)
[2018-09-07] MEDS ORDERED: DEXTROSE 50% 25 GM / 50ML DISP.SYRIN. IV PRN (09:00)
[2018-09-07] MEDS ORDERED: PROCHLORPERAZINE 10 MG/2 ML VIAL. ONE (09:08)
[2018-09-07] MEDS ORDERED: fentaNYL PF VIAL 100 MCG/2 ML VIAL ONE ×2 (09:08→09:35)
[2018-09-07] MEDS: fentaNYL PF VIAL 100 MCG/2 ML VIAL IV PRN ×3 (09:13→09:46)
[2018-09-07] MEDS: IV RINGERS,LACTATED 1000ML 1,000 ML IV SCH ×2 (09:30→19:30)
--- NOTE | 2018-09-07 09:41 | PDOC ---
Objective: Objective: Reviewed other notes. Vital Signs: Vital Signs Date Time Temp Pulse Resp B/P (MAP) Pulse Ox O2 Delivery O2 Flow Rate FiO2 09/07/18 09:30 14 98 Room Air 09/07/18 09:22 76 145/91 09/07/18 09:13 10.0 09/07/18 08:52 98 98.0 Labs: Laboratory Tests Test 09/07/18 04:15 White Blood Count 14.7 x10^3/uL Red Blood Count 4.53 x10^6/uL Hemoglobin 14.4 g/dL Hematocrit 40.2 % Mean Corpuscular Volume 89 fL Mean Corpuscular Hemoglobin 32 pg Mean Corpuscular Hemoglobin Concent 36 g/dL Red Cell Distribution Width 13.7 % Platelet Count 237 x10^3/uL Neutrophils (%) (Auto) 76 % Lymphocytes (%) (Auto) 15 % Monocytes (%) (Auto) 6 % Eosinophils (%) (Auto) 2 % Basophils (%) (Auto) 1 % Neutrophils # (Auto) 11.3 x10^3uL Lymphocytes # (Auto) 2.3 x10^3/uL Monocytes # (Auto) 0.9 x10^3/uL Eosinophils # (Auto) 0.2 x10^3/uL Basophils # (Auto) 0.1 x10^3/uL Sodium Level 138 mmol/L Potassium Level 3.2 mmol/L Chloride Level 103 mmol/L Carbon Dioxide Level 25 mmol/L Anion Gap 10 Blood Urea Nitrogen 12 mg/dL Creatinine 1.4 mg/dL Estimated GFR (Cockcroft-Gault) 54.8 BUN/Creatinine Ratio 9 Glucose Level 108 mg/dL Calcium Level 8.6 mg/dL Magnesium Level 1.5 mg/dL Total Bilirubin 0.7 mg/dL Aspartate Amino Transf (AST/SGOT) 11 U/L Alanine Aminotransferase (ALT/SGPT) 25 U/L Alkaline Phosphatase 115 U/L Total Protein 6.9 g/dL Albumin 3.4 g/dL Albumin/Globulin Ratio 1.0 Imaging: HIDA 09/06 IMPRESSION: 1. The cystic duct and common bile duct are patent. No scintigraphic evidence of acute cholecystitis. 2. The gallbladder ejection fraction is mildly low measuring 32 %. Findings most commonly indicate chronic cholecystitis or gallbladder dyskinesia. IOC 09/07 IMPRESSION: No significant abnormality is detected. PE: out of room A/P: Abd pain, abnormal GB imaging Leukocytosis - worse HTN, BRANDI - better -- Out for cholecystectomy, note IOC as above. Will follow. FRANCIS WILLS Sep 07, 2018 09:41
[2018-09-07] MEDS ORDERED: KETOROLAC 30 MG/ML VIAL. ONE (09:46)
[2018-09-07] MEDS: KETOROLAC 15 MG/ML VIAL. IV PRN ×2 (09:48→11:51)
--- NOTE | 2018-09-07 10:45 | PDOC ---
PROGRESS NOTES History of Present Illness History of Present Illness Assessment/Plan Assessment/Plan acute RUQ pain, acute leann, consult GI and gen surg. done accelerated htn, SIRS, tachypnea and leukocytosis, no fever, and vitals improved from admit without antibiotics, tobacco use disorder Vitals Vitals Vital Signs Date Time Temp Pulse Resp B/P (MAP) Pulse Ox O2 Delivery O2 Flow Rate FiO2 09/07/18 10:07 77 16 140/84 94 Room Air 09/07/18 09:52 98.0 98.0 09/07/18 09:13 10.0 Physical Exam General: Alert, Oriented X3, Cooperative, No acute distress, mild distress Heart: Regular rate, Normal S1, Normal S2, No murmurs Lungs: Clear Abdomen: Soft, Other (incisions dry, dressed) Extremities: No clubbing, No cyanosis Skin: No rashes, No breakdown Labs LABS Laboratory Tests Test 09/07/18 04:15 White Blood Count 14.7 x10^3/uL (4.0-11.0) Red Blood Count 4.53 x10^6/uL (4.30-5.70) Hemoglobin 14.4 g/dL (13.0-17.5) Hematocrit 40.2 % (39.0-53.0) Mean Corpuscular Volume 89 fL (79-100) Mean Corpuscular Hemoglobin 32 pg (25-35) Mean Corpuscular Hemoglobin Concent 36 g/dL (31-37) Red Cell Distribution Width 13.7 % (11.5-14.5) Platelet Count 237 x10^3/uL (140-400) Neutrophils (%) (Auto) 76 % (31-73) Lymphocytes (%) (Auto) 15 % (24-48) Monocytes (%) (Auto) 6 % (0-9) Eosinophils (%) (Auto) 2 % (0-3) Basophils (%) (Auto) 1 % (0-3) Neutrophils # (Auto) 11.3 x10^3uL (1.8-7.7) Lymphocytes # (Auto) 2.3 x10^3/uL (1.0-4.8) Monocytes # (Auto) 0.9 x10^3/uL (0.0-1.1) Eosinophils # (Auto) 0.2 x10^3/uL (0.0-0.7) Basophils # (Auto) 0.1 x10^3/uL (0.0-0.2) Sodium Level 138 mmol/L (136-145) Potassium Level 3.2 mmol/L (3.5-5.1) Chloride Level 103 mmol/L (98-107) Carbon Dioxide Level 25 mmol/L (21-32) Anion Gap 10 (6-14) Blood Urea Nitrogen 12 mg/dL (8-26) Creatinine 1.4 mg/dL (0.7-1.3) Estimated GFR (Cockcroft-Gault) 54.8 BUN/Creatinine Ratio 9 (6-20) Glucose Level 108 mg/dL (70-99) Calcium Level 8.6 mg/dL (8.5-10.1) Magnesium Level 1.5 mg/dL (1.8-2.4) Total Bilirubin 0.7 mg/dL (0.2-1.0) Aspartate Amino Transf (AST/SGOT) 11 U/L (15-37) Alanine Aminotransferase (ALT/SGPT) 25 U/L (16-63) Alkaline Phosphatase 115 U/L (46-116) Total Protein 6.9 g/dL (6.4-8.2) Albumin 3.4 g/dL (3.4-5.0) Albumin/Globulin Ratio 1.0 (1.0-1.7) Assessment and Plan Assessmemt and Plan Problems Medical Problems: (1) Accelerated hypertension Status: Acute (2) Acute kidney injury Status: Acute (3) Right upper quadrant pain Status: Acute OPERATIVE NOTE Date: Date: Sep 07, 2018 Pre-Op Diagnosis: RUQ pain, concern for biliary disease Post-Op Diagnosis: cholecystitis Procedure Performed: laparoscopic cholecystectomy with cholangiogram Surgeon: Carmelo Mehta Anesthesia Type: GETA plus local Blood Loss: 50 Specimans Obtained: gallbladder Findings: indurated, adherent gallbladder wall, normal cholangiogram Complications: none Comment Review of Relevant I have reviewed the following items rojas (where applicable) has been applied. Labs Laboratory Tests Test 09/06/18 02:25 09/06/18 02:30 09/07/18 04:15 Urine Collection Type Unknown Urine Color Yellow Urine Clarity Clear Urine pH 6.5 Urine Specific [place] 1.015 Urine Protein Negative mg/dL (NEG-TRACE) Urine Glucose (UA) Negative mg/dL (NEG) Urine Ketones (Stick) Negative mg/dL (NEG) Urine Blood Negative (NEG) Urine Nitrite Negative (NEG) Urine Bilirubin Negative (NEG) Urine Urobilinogen Dipstick 0.2 mg/dL (0.2 mg/dL) Urine Leukocyte Esterase Negative (NEG) Urine RBC Occ /HPF (0-2) Urine WBC Occ /HPF (0-4) Urine Squamous Epithelial Cells Occ /LPF Urine Bacteria 0 /HPF (0-FEW) Urine Random Creatinine 76.0 mg/dL (Not Estab.) Urine Random Total Protein 15.4 mg/dL (Not Estab.) White Blood Count 12.8 x10^3/uL (4.0-11.0) 14.7 x10^3/uL (4.0-11.0) Red Blood Count 4.71 x10^6/uL (4.30-5.70) 4.53 x10^6/uL (4.30-5.70) Hemoglobin 14.8 g/dL (13.0-17.5) 14.4 g/dL (13.0-17.5) Hematocrit 41.6 % (39.0-53.0) 40.2 % (39.0-53.0) Mean Corpuscular Volume 88 fL (79-100) 89 fL (79-100) Mean Corpuscular Hemoglobin 31 pg (25-35) 32 pg (25-35) Mean Corpuscular Hemoglobin Concent 36 g/dL (31-37) 36 g/dL (31-37) Red Cell Distribution Width 13.8 % (11.5-14.5) 13.7 % (11.5-14.5) Platelet Count 253 x10^3/uL (140-400) 237 x10^3/uL (140-400) Neutrophils (%) (Auto) 62 % (31-73) 76 % (31-73) Lymphocytes (%) (Auto) 27 % (24-48) 15 % (24-48) Monocytes (%) (Auto) 8 % (0-9) 6 % (0-9) Eosinophils (%) (Auto) 2 % (0-3) 2 % (0-3) Basophils (%) (Auto) 1 % (0-3) 1 % (0-3) Neutrophils # (Auto) 7.9 x10^3uL (1.8-7.7) 11.3 x10^3uL (1.8-7.7) Lymphocytes # (Auto) 3.5 x10^3/uL (1.0-4.8) 2.3 x10^3/uL (1.0-4.8) Monocytes # (Auto) 1.1 x10^3/uL (0.0-1.1) 0.9 x10^3/uL (0.0-1.1) Eosinophils # (Auto) 0.3 x10^3/uL (0.0-0.7) 0.2 x10^3/uL (0.0-0.7) Basophils # (Auto) 0.1 x10^3/uL (0.0-0.2) 0.1 x10^3/uL (0.0-0.2) Sodium Level 137 mmol/L (136-145) 138 mmol/L (136-145) Potassium Level 3.3 mmol/L (3.5-5.1) 3.2 mmol/L (3.5-5.1) Chloride Level 99 mmol/L (98-107) 103 mmol/L (98-107) Carbon Dioxide Level 30 mmol/L (21-32) 25 mmol/L (21-32) Anion Gap 8 (6-14) 10 (6-14) Blood Urea Nitrogen 23 mg/dL (8-26) 12 mg/dL (8-26) Creatinine 1.9 mg/dL (0.7-1.3) 1.4 mg/dL (0.7-1.3) Estimated GFR (Cockcroft-Gault) 38.5 54.8 BUN/Creatinine Ratio 12 (6-20) 9 (6-20) Glucose Level 114 mg/dL (70-99) 108 mg/dL (70-99) Calcium Level 9.4 mg/dL (8.5-10.1) 8.6 mg/dL (8.5-10.1) Total Bilirubin 0.4 mg/dL (0.2-1.0) 0.7 mg/dL (0.2-1.0) Aspartate Amino Transf (AST/SGOT) 17 U/L (15-37) 11 U/L (15-37) Alanine Aminotransferase (ALT/SGPT) 30 U/L (16-63) 25 U/L (16-63) Alkaline Phosphatase 127 U/L (46-116) 115 U/L (46-116) Total Protein 7.8 g/dL (6.4-8.2) 6.9 g/dL (6.4-8.2) Albumin 3.9 g/dL (3.4-5.0) 3.4 g/dL (3.4-5.0) Albumin/Globulin Ratio 1.0 (1.0-1.7) 1.0 (1.0-1.7) Lipase 139 U/L (73-393) Magnesium Level 1.5 mg/dL (1.8-2.4) Laboratory Tests Test 09/07/18 04:15 White Blood Count 14.7 x10^3/uL (4.0-11.0) Red Blood Count 4.53 x10^6/uL (4.30-5.70) Hemoglobin 14.4 g/dL (13.0-17.5) Hematocrit 40.2 % (39.0-53.0) Mean Corpuscular Volume 89 fL (79-100) Mean Corpuscular Hemoglobin 32 pg (25-35) Mean Corpuscular Hemoglobin Concent 36 g/dL (31-37) Red Cell Distribution Width 13.7 % (11.5-14.5) Platelet Count 237 x10^3/uL (140-400) Neutrophils (%) (Auto) 76 % (31-73) Lymphocytes (%) (Auto) 15 % (24-48) Monocytes (%) (Auto) 6 % (0-9) Eosinophils (%) (Auto) 2 % (0-3) Basophils (%) (Auto) 1 % (0-3) Neutrophils # (Auto) 11.3 x10^3uL (1.8-7.7) Lymphocytes # (Auto) 2.3 x10^3/uL (1.0-4.8) Monocytes # (Auto) 0.9 x10^3/uL (0.0-1.1) Eosinophils # (Auto) 0.2 x10^3/uL (0.0-0.7) Basophils # (Auto) 0.1 x10^3/uL (0.0-0.2) Sodium Level 138 mmol/L (136-145) Potassium Level 3.2 mmol/L (3.5-5.1) Chloride Level 103 mmol/L (98-107) Carbon Dioxide Level 25 mmol/L (21-32) Anion Gap 10 (6-14) Blood Urea Nitrogen 12 mg/dL (8-26) Creatinine 1.4 mg/dL (0.7-1.3) Estimated GFR (Cockcroft-Gault) 54.8 BUN/Creatinine Ratio 9 (6-20) Glucose Level 108 mg/dL (70-99) Calcium Level 8.6 mg/dL (8.5-10.1) Magnesium Level 1.5 mg/dL (1.8-2.4) Total Bilirubin 0.7 mg/dL (0.2-1.0) Aspartate Amino Transf (AST/SGOT) 11 U/L (15-37) Alanine Aminotransferase (ALT/SGPT) 25 U/L (16-63) Alkaline Phosphatase 115 U/L (46-116) Total Protein 6.9 g/dL (6.4-8.2) Albumin 3.4 g/dL (3.4-5.0) Albumin/Globulin Ratio 1.0 (1.0-1.7) Medications Current Medications Fentanyl Citrate (Fentanyl 2ml Vial) 50 mcg PRN Q15MIN PRN IV PAIN GREATER THAN 3/10 Last administered on 09/06/18at 02:46; Start 09/06/18 at 02:30; Stop at 18:21; Status DC Sodium Chloride 1,000 ml @ 1,000 mls/hr Q1H IV Last administered on 09/06/18at 02:46; Start 09/06/18 at 02:30; Stop 09/06/18 at 03:29; Status DC Ondansetron HCl (Zofran) 4 mg 1X ONCE IV Last administered on 09/06/18at 02:46 ; Start 09/06/18 at 02:30; Stop 09/06/18 at 02:31; Status DC Labetalol HCl (Normodyne Iv Push) 10 mg 1X ONCE IVP Last administered on at 03:54; Start 09/06/18 at 03:00; Stop 09/06/18 at 03:01; Status DC Labetalol HCl (Normodyne Iv Push) 10 mg 1X ONCE IVP Last administered on at 07:01; Start 09/06/18 at 05:15; Stop 09/06/18 at 05:16; Status DC Ondansetron HCl (Zofran) 4 mg PRN Q8HRS PRN IV NAUSEA/VOMITING Last administered on 09/06/18at 14:50; Start 09/06/18 at 05:00; Stop 09/07/18 at 04:59 ; Status DC Fentanyl Citrate (Fentanyl 2ml Vial) 50 mcg PRN Q1HR PRN IV PAIN; Start at 05:00; Stop 09/07/18 at 04:59; Status DC Sodium Chloride 1,000 ml @ 125 mls/hr Q8H IV Last administered on 09/06/18at 21 :00; Start 09/06/18 at 05:00; Stop 09/07/18 at 04:59; Status DC Labetalol HCl (Normodyne Iv Push) 10 mg PRN Q2HR PRN IVP SBP>185; Start at 05:15 Amlodipine Besylate (Norvasc) 5 mg DAILY PO Last administered on 09/06/18at 12: 36; Start 09/06/18 at 09:00 Tramadol HCl (Ultram) 50 mg PRN Q6HRS PRN PO MILD PAIN Last administered on at 12:35; Start 09/06/18 at 08:45 Diphenhydramine HCl (Benadryl) 25 mg PRN Q6HRS PRN PO ITCHING Last administered on 09/06/18at 14:47; Start 09/06/18 at 08:45 Ondansetron HCl (Zofran Odt) 4 mg PRN Q8HRS PRN PO NAUSEA/VOMITING; Start 09/06 at 08:45 Nicotine (Nicoderm Cq 14mg) 1 patch PRN DAILY PRN TD SMOKING CESSATION; Start 09/06/18 at 08:45 Sincalide 1.89 mcg/Sodium Chloride 30 ml @ 120 mls/hr 1X ONCE IV Last administered on 09/06/18at 12:08; Start 09/06/18 at 11:30; Stop 09/06/18 at 11:44 ; Status DC Cefazolin Sodium/ Dextrose 50 ml @ 100 mls/hr 1X PREOP IV Last administered on 09/07/18at 08:34; Start 09/06/18 at 14:30; Stop 09/07/18 at 18:00 Hydralazine HCl (Apresoline Inj) 10 mg PRN Q4HRS PRN IVP ELEVATED BP, SEE COMMENTS Last administered on 09/06/18at 20:52; Start 09/06/18 at 14:45 Sumatriptan Succinate (Imitrex) 6 mg 1X ONCE SQ ; Start 09/06/18 at 15:30; Stop 09/06/18 at 15:55; Status DC Cyclobenzaprine HCl (Flexeril) 5 mg PRN Q6HRS PRN PO MUSCLE SPASMS Last administered on 09/06/18at 17:46; Start 09/06/18 at 15:30 Ondansetron HCl (Zofran) 4 mg PRN Q6HRS PRN IV NAUSEA/VOMITING; Start 09/07/18 at 07:00; Stop 09/07/18 at 19:00 Fentanyl Citrate (Fentanyl 2ml Vial) 25 mcg PRN Q5MIN PRN IV MILD PAIN; Start 09/07/18 at 07:00; Stop 09/07/18 at 19:00 Fentanyl Citrate (Fentanyl 2ml Vial) 50 mcg PRN Q5MIN PRN IV MODERATE TO SEVERE PAIN Last administered on 09/07/18at 09:46; Start 09/07/18 at 07:00; Stop 09/07/18 at 19:00 Ringer's Solution 1,000 ml @ 30 mls/hr Q24H IV ; Start 09/07/18 at 07:00; Stop 09/07/18 at 18:59 Lidocaine HCl (Xylocaine-Mpf 1% 2ml Vial) 2 ml PRN 1X PRN ID PRIOR TO IV START ; Start 09/07/18 at 07:00; Stop 09/07/18 at 19:00 Prochlorperazine Edisylate (Compazine) 5 mg PACU PRN PRN IV NAUSEA, MRX1 Last administered on 09/07/18at 09:14; Start 09/07/18 at 07:00; Stop 09/07/18 at 19:00 Heparin Sodium (Porcine) 1000 unit/Sodium Chloride 1,001 ml @ 1,001 mls/hr 1X ONCE IRR Last administered on 09/07/18at 08:04; Start 09/07/18 at 06:00; Stop at 06:59; Status DC Bupivacaine HCl/ Epinephrine Bitart (Sensorcain-Mpf Epi 0.5%-1:136062) 30 ml STK -MED ONCE .ROUTE Last administered on 09/07/18at 08:04; Start 09/07/18 at 06:44 ; Stop 09/07/18 at 06:46; Status DC Cellulose (Surgicel Hemostat 2x3) 1 each STK-MED ONCE .ROUTE ; Start 09/07/18 at 06:44; Stop 09/07/18 at 06:46; Status DC Iohexol (Omnipaque 300 Mg/ml) 100 ml STK-MED ONCE .ROUTE Last administered on at 08:04; Start 09/07/18 at 06:45; Stop 09/07/18 at 06:46; Status DC Bisacodyl (Dulcolax Supp) 10 mg STK-MED ONCE .ROUTE Last administered on at 08:04; Start 09/07/18 at 06:45; Stop 09/07/18 at 06:47; Status DC Midazolam HCl (Versed) 2 mg STK-MED ONCE .ROUTE ; Start 09/07/18 at 07:22; Stop 09/07/18 at 07:24; Status DC Fentanyl Citrate (Fentanyl 5ml Vial) 250 mcg STK-MED ONCE .ROUTE ; Start at 07:22; Stop 09/07/18 at 07:24; Status DC Rocuronium Caroline (Zemuron) 50 mg STK-MED ONCE .ROUTE ; Start 09/07/18 at 07:23 ; Stop 09/07/18 at 07:25; Status DC Hydralazine HCl (Apresoline Inj) 20 mg STK-MED ONCE .ROUTE ; Start 09/07/18 at 07:59; Stop 09/07/18 at 08:01; Status DC Labetalol HCl (Normodyne Iv Push) 20 mg 1X ONCE IVP ; Start 09/07/18 at 08:30; Stop 09/07/18 at 08:31; Status DC Propofol 20 ml @ As Directed STK-MED ONCE IV ; Start 09/07/18 at 08:20; Stop at 08:21; Status DC Dexamethasone Sodium Phosphate (Decadron) 20 mg STK-MED ONCE .ROUTE ; Start at 08:20; Stop 09/07/18 at 08:21; Status DC Lidocaine HCl (Lidocaine Pf 2% Vial) 5 ml STK-MED ONCE .ROUTE ; Start 09/07/18 at 08:20; Stop 09/07/18 at 08:22; Status DC Ondansetron HCl (Zofran) 4 mg STK-MED ONCE .ROUTE ; Start 09/07/18 at 08:20; Stop 09/07/18 at 08:22; Status DC Phenylephrine HCl (PHENYLEPHRINE in 0.9% NACL PF) 1 mg STK-MED ONCE IV ; Start 09/07/18 at 08:29; Stop 09/07/18 at 08:31; Status DC Neostigmine Methylsulfate (Bloxiverz) 10 mg STK-MED ONCE .ROUTE ; Start at 08:40; Stop 09/07/18 at 08:42; Status DC Glycopyrrolate (Robinul) 1 mg STK-MED ONCE .ROUTE ; Start 09/07/18 at 08:40; Stop 09/07/18 at 08:42; Status DC Sodium Chloride (Normal Saline Flush) 3 ml QSHIFT PRN IV AFTER MEDS AND BLOOD DRAWS; Start 09/07/18 at 09:00 Ringer's Solution 1,000 ml @ 100 mls/hr Q10H IV ; Start 09/07/18 at 09:30 Dextrose (Dextrose 50%-Water Syringe) 12.5 gm PRN Q15MIN PRN IV SEE COMMENTS; Start 09/07/18 at 09:00 Acetaminophen/ Hydrocodone Bitart (Lortab 5/325) 1 tab PRN Q4HRS PRN PO MODERATE-SEVERE PAIN; Start 09/07/18 at 09:00 Ketorolac Tromethamine (Toradol 15mg Vial) 15 mg PRN Q6HRS PRN IV PAIN Last administered on 09/07/18at 09:48; Start 09/07/18 at 09:00; Stop 09/12/18 at 08:59 Docusate Sodium (Colace) 100 mg BID PO ; Start 09/07/18 at 09:00 Ondansetron HCl (Zofran) 4 mg PRN Q6HRS PRN IV NAUESA, 1ST CHOICE; Start at 09:00 Fentanyl Citrate (Fentanyl 2ml Vial) 100 mcg STK-MED ONCE .ROUTE ; Start at 09:08; Stop 09/07/18 at 09:10; Status DC Prochlorperazine Edisylate (Compazine) 10 mg STK-MED ONCE .ROUTE ; Start at 09:08; Stop 09/07/18 at 09:10; Status DC Fentanyl Citrate (Fentanyl 2ml Vial) 100 mcg STK-MED ONCE .ROUTE ; Start at 09:35; Stop 09/07/18 at 09:37; Status DC Ketorolac Tromethamine (Toradol 30mg Vial) 30 mg STK-MED ONCE .ROUTE ; Start at 09:46; Stop 09/07/18 at 09:48; Status DC Active Scripts Active Zofran (Ondansetron Hcl) 4 Mg Tablet 1 Tab PO Q8HRS PRN Reported Tramadol Hcl 50 Mg Tablet 1 Tab PO TID Ibuprofen 800 Mg Tablet 800 Mg PO Q6H PRN Benadryl (Diphenhydramine Hcl) 25 Mg Capsule 25 Mg PO PRN Q6HRS PRN Lisinopril-Hctz 20-12.5 Mg Tab (Lisinopril/Hydrochlorothiazide) 1 Each Tablet 1 Tab PO DAILY Vitals/I & O Vital Sign - Last 24 Hours 09/06/18 09/06/18 09/06/18 09/06/18 12:35 12:36 14:40 14:48 Pulse 62 64 75 Resp 12 B/P (MAP) 184/126 195/124 (147) 195/124 Pulse Ox 99 O2 Delivery Room Air Room Air 09/06/18 09/06/18 09/06/18 09/06/18 16:15 19:00 19:48 20:52 Temp 98.0 98.0 Pulse 80 80 Resp 18 B/P (MAP) 151/89 (109) 168/112 (130) 168/112 Pulse Ox 98 O2 Delivery Room Air Room Air 09/06/18 09/07/18 09/07/18 09/07/18 23:00 03:00 06:45 08:52 Temp 99.0 98.5 98.5 99.0 98.5 98.5 Pulse 81 73 76 Resp 18 18 16 B/P (MAP) 156/103 (120) 175/103 (127) 191/105 Pulse Ox 97 99 99 O2 Delivery Room Air Room Air Room Air Mask O2 Flow Rate 10 09/07/18 09/07/18 09/07/18 09/07/18 08:52 09:07 09:13 09:22 Temp 98 98.0 Pulse 74 84 76 Resp 12 16 14 14 B/P (MAP) 159/89 140/81 145/91 Pulse Ox 100 98 98 96 O2 Delivery Simple Mask Simple Mask Simple Mask Room Air O2 Flow Rate 10 10 10.0 09/07/18 09/07/18 09/07/18 09/07/18 09:30 09:37 09:46 09:52 Temp 98.0 98.0 98.0 98.0 Pulse 78 76 Resp 14 14 10 16 B/P (MAP) 156/83 139/84 Pulse Ox 98 94 97 93 O2 Delivery Room Air Room Air Room Air Room Air 09/07/18 09/07/18 10:04 10:07 Pulse 77 Resp 16 B/P (MAP) 140/84 Pulse Ox 94 O2 Delivery Room Air Room Air Intake and Output 09/06/18 09/06/18 09/07/18 15:01 23:01 07:01 Output Total 250 ml Balance -250 ml BUNNY RDZ MD Sep 07, 2018 10:45
[2018-09-07] MEDS: CYCLOBENZAPRINE 10 MG TABLET. PO PRN (12:39)
[2018-09-07] MEDS: traMADol 50 MG TABLET PO PRN (12:39)
[2018-09-07] MEDS: DOCUSATE SODIUM 100 MG CAPSULE. PO SCH ×2 (12:39→20:44)
[2018-09-07] MEDS: amLODIPine BESYLATE 5 MG TABLET PO SCH (12:48)
[2018-09-07] MEDS: hydrALAZINE 20 MG/ML VIAL. IVP PRN (17:04)
[2018-09-07] MEDS ORDERED: POTASSIUM CHLORIDE 20 MEQ TABLET.ER. PO ONE (19:15)
[2018-09-08 03:43] VITALS: BP 171/81
[2018-09-08] MEDS: hydrALAZINE 20 MG/ML VIAL. IVP PRN ×2 (03:53→13:37)
[2018-09-08 04:53] VITALS: BP 150/76
[2018-09-08] MEDS: IV RINGERS,LACTATED 1000ML 1,000 ML IV SCH (05:30)
[2018-09-08 07:00] VITALS: BP 162/89
[2018-09-08 07:21] LABS: BASO # 0.1 x10^3/uL (0.0-0.2); BASO % 1 % (0-3); EOS % 0 % (0-3); HEMATOCRIT 38.8 % (39.0-53.0); HEMOGLOBIN 13.7 g/dL (13.0-17.5); LYMPH # 1.9 x10^3/uL (1.0-4.8); LYMPH % 8 % (24-48); MEAN CORPUSCULAR HEMOGLOBIN 32 pg (25-35); MEAN CORPUSCULAR HGB CONC 35 g/dL (31-37); MEAN CORPUSCULAR VOLUME 90 fL (79-100); MONO # 1.6 x10^3/uL (0.0-1.1); MONO % 7 % (0-9); NEUT % 85 % (31-73); PLATELET COUNT 228 x10^3/uL (140-400); RED CELL DISTRIBUTION WIDTH 13.8 % (11.5-14.5); WHITE BLOOD COUNT 23.6 x10^3/uL (4.0-11.0)
[2018-09-08 07:37] LABS: ALBUMIN 3.3 g/dL (3.4-5.0); CALCIUM 8.7 mg/dL (8.5-10.1); CREATININE 1.7 mg/dL (0.7-1.3); GFR 43.8; POTASSIUM 3.4 mmol/L (3.5-5.1); TOTAL BILIRUBIN 0.5 mg/dL (0.2-1.0); TOTAL PROTEIN 6.7 g/dL (6.4-8.2)
[2018-09-08] MEDS ORDERED: POTASSIUM CHLORIDE 20 MEQ TABLET.ER. PO SCH (08:00)
[2018-09-08] MEDS: CYCLOBENZAPRINE 10 MG TABLET. PO PRN ×2 (08:18→15:22)
[2018-09-08] MEDS: traMADol 50 MG TABLET PO PRN ×2 (08:18→15:22)
[2018-09-08] MEDS: amLODIPine BESYLATE 5 MG TABLET PO SCH (08:19)
[2018-09-08] MEDS: DOCUSATE SODIUM 100 MG CAPSULE. PO SCH (08:19)
[2018-09-08 08:38] LABS: % BANDS 2 % (0-9); % LYMPHS 10 % (24-48); % MONOS 6 % (0-10); % SEGS 82 % (35-66); PLT ESTIMATE ADEQUATE (ADEQUATE)
--- NOTE | 2018-09-08 09:30 | PDOC ---
Subjective: Subjective: Tolerating regular diet. Post-op soreness, mostly w/ movement. Pre-op pain has resolved. Objective: Vital Signs: Vital Signs Date Time Temp Pulse Resp B/P (MAP) Pulse Ox O2 Delivery O2 Flow Rate FiO2 09/08/18 08:19 82 162/89 09/08/18 08:18 Room Air 09/08/18 07:00 98.2 18 96 98.2 09/07/18 09:13 10.0 Labs: Laboratory Tests Test 09/08/18 07:05 White Blood Count 23.6 x10^3/uL Red Blood Count 4.30 x10^6/uL Hemoglobin 13.7 g/dL Hematocrit 38.8 % Mean Corpuscular Volume 90 fL Mean Corpuscular Hemoglobin 32 pg Mean Corpuscular Hemoglobin Concent 35 g/dL Red Cell Distribution Width 13.8 % Platelet Count 228 x10^3/uL Neutrophils (%) (Auto) 85 % Lymphocytes (%) (Auto) 8 % Monocytes (%) (Auto) 7 % Eosinophils (%) (Auto) 0 % Basophils (%) (Auto) 1 % Neutrophils # (Auto) 20.0 x10^3uL Lymphocytes # (Auto) 1.9 x10^3/uL Monocytes # (Auto) 1.6 x10^3/uL Eosinophils # (Auto) 0.0 x10^3/uL Basophils # (Auto) 0.1 x10^3/uL Segmented Neutrophils % 82 % Band Neutrophils % 2 % Lymphocytes % 10 % Monocytes % 6 % Platelet Estimate Adequate Sodium Level 136 mmol/L Potassium Level 3.4 mmol/L Chloride Level 102 mmol/L Carbon Dioxide Level 24 mmol/L Anion Gap 10 Blood Urea Nitrogen 19 mg/dL Creatinine 1.7 mg/dL Estimated GFR (Cockcroft-Gault) 43.8 BUN/Creatinine Ratio 11 Glucose Level 126 mg/dL Calcium Level 8.7 mg/dL Total Bilirubin 0.5 mg/dL Aspartate Amino Transf (AST/SGOT) 48 U/L Alanine Aminotransferase (ALT/SGPT) 69 U/L Alkaline Phosphatase 116 U/L Total Protein 6.7 g/dL Albumin 3.3 g/dL Albumin/Globulin Ratio 1.0 PE: GEN: NAD LUNGS: CTAB HEART: RRR ABD: NABS, soft, mild RUQ discomfort NEURO/PSYCH: A & O �3 A/P: S/p cholecystectomy HTN Leukocytosis, BRANDI, mild transaminitis -- Continue per primary and surgery. FRANCIS WILLS Sep 08, 2018 09:30
--- NOTE | 2018-09-08 10:27 | PDOC ---
SURGICAL PROGRESS NOTE Subjective Pt with c/o soreness, but previous pain resolved, marty PO Vital Signs Vital Signs Date Time Temp Pulse Resp B/P (MAP) Pulse Ox O2 Delivery O2 Flow Rate FiO2 09/08/18 08:19 82 162/89 09/08/18 08:18 Room Air 09/08/18 07:00 98.2 18 96 98.2 09/07/18 09:13 10.0 I&O Intake and Output 09/08/18 07:01 Intake Total 2250 ml Output Total 325 ml Balance 1925 ml Intake Oral 1200 ml IV Total 1050 ml Output Urine Total 275 ml Estimated Blood Loss 50 ml # Voids 5 # Bowel Movements 1 General: Alert, Oriented X3, Cooperative, No acute distress Abdomen: Soft, Other (mild TTP) Labs Laboratory Tests Test 09/07/18 04:15 09/08/18 07:05 White Blood Count 14.7 x10^3/uL (4.0-11.0) 23.6 x10^3/uL (4.0-11.0) Red Blood Count 4.53 x10^6/uL (4.30-5.70) 4.30 x10^6/uL (4.30-5.70) Hemoglobin 14.4 g/dL (13.0-17.5) 13.7 g/dL (13.0-17.5) Hematocrit 40.2 % (39.0-53.0) 38.8 % (39.0-53.0) Mean Corpuscular Volume 89 fL (79-100) 90 fL (79-100) Mean Corpuscular Hemoglobin 32 pg (25-35) 32 pg (25-35) Mean Corpuscular Hemoglobin Concent 36 g/dL (31-37) 35 g/dL (31-37) Red Cell Distribution Width 13.7 % (11.5-14.5) 13.8 % (11.5-14.5) Platelet Count 237 x10^3/uL (140-400) 228 x10^3/uL (140-400) Neutrophils (%) (Auto) 76 % (31-73) 85 % (31-73) Lymphocytes (%) (Auto) 15 % (24-48) 8 % (24-48) Monocytes (%) (Auto) 6 % (0-9) 7 % (0-9) Eosinophils (%) (Auto) 2 % (0-3) 0 % (0-3) Basophils (%) (Auto) 1 % (0-3) 1 % (0-3) Neutrophils # (Auto) 11.3 x10^3uL (1.8-7.7) 20.0 x10^3uL (1.8-7.7) Lymphocytes # (Auto) 2.3 x10^3/uL (1.0-4.8) 1.9 x10^3/uL (1.0-4.8) Monocytes # (Auto) 0.9 x10^3/uL (0.0-1.1) 1.6 x10^3/uL (0.0-1.1) Eosinophils # (Auto) 0.2 x10^3/uL (0.0-0.7) 0.0 x10^3/uL (0.0-0.7) Basophils # (Auto) 0.1 x10^3/uL (0.0-0.2) 0.1 x10^3/uL (0.0-0.2) Sodium Level 138 mmol/L (136-145) 136 mmol/L (136-145) Potassium Level 3.2 mmol/L (3.5-5.1) 3.4 mmol/L (3.5-5.1) Chloride Level 103 mmol/L (98-107) 102 mmol/L (98-107) Carbon Dioxide Level 25 mmol/L (21-32) 24 mmol/L (21-32) Anion Gap 10 (6-14) 10 (6-14) Blood Urea Nitrogen 12 mg/dL (8-26) 19 mg/dL (8-26) Creatinine 1.4 mg/dL (0.7-1.3) 1.7 mg/dL (0.7-1.3) Estimated GFR (Cockcroft-Gault) 54.8 43.8 BUN/Creatinine Ratio 9 (6-20) 11 (6-20) Glucose Level 108 mg/dL (70-99) 126 mg/dL (70-99) Calcium Level 8.6 mg/dL (8.5-10.1) 8.7 mg/dL (8.5-10.1) Magnesium Level 1.5 mg/dL (1.8-2.4) Total Bilirubin 0.7 mg/dL (0.2-1.0) 0.5 mg/dL (0.2-1.0) Aspartate Amino Transf (AST/SGOT) 11 U/L (15-37) 48 U/L (15-37) Alanine Aminotransferase (ALT/SGPT) 25 U/L (16-63) 69 U/L (16-63) Alkaline Phosphatase 115 U/L (46-116) 116 U/L (46-116) Total Protein 6.9 g/dL (6.4-8.2) 6.7 g/dL (6.4-8.2) Albumin 3.4 g/dL (3.4-5.0) 3.3 g/dL (3.4-5.0) Albumin/Globulin Ratio 1.0 (1.0-1.7) 1.0 (1.0-1.7) Segmented Neutrophils % 82 % (35-66) Band Neutrophils % 2 % (0-9) Lymphocytes % 10 % (24-48) Monocytes % 6 % (0-10) Platelet Estimate Adequate (ADEQUATE) Laboratory Tests Test 09/08/18 07:05 White Blood Count 23.6 x10^3/uL (4.0-11.0) Red Blood Count 4.30 x10^6/uL (4.30-5.70) Hemoglobin 13.7 g/dL (13.0-17.5) Hematocrit 38.8 % (39.0-53.0) Mean Corpuscular Volume 90 fL (79-100) Mean Corpuscular Hemoglobin 32 pg (25-35) Mean Corpuscular Hemoglobin Concent 35 g/dL (31-37) Red Cell Distribution Width 13.8 % (11.5-14.5) Platelet Count 228 x10^3/uL (140-400) Neutrophils (%) (Auto) 85 % (31-73) Lymphocytes (%) (Auto) 8 % (24-48) Monocytes (%) (Auto) 7 % (0-9) Eosinophils (%) (Auto) 0 % (0-3) Basophils (%) (Auto) 1 % (0-3) Neutrophils # (Auto) 20.0 x10^3uL (1.8-7.7) Lymphocytes # (Auto) 1.9 x10^3/uL (1.0-4.8) Monocytes # (Auto) 1.6 x10^3/uL (0.0-1.1) Eosinophils # (Auto) 0.0 x10^3/uL (0.0-0.7) Basophils # (Auto) 0.1 x10^3/uL (0.0-0.2) Segmented Neutrophils % 82 % (35-66) Band Neutrophils % 2 % (0-9) Lymphocytes % 10 % (24-48) Monocytes % 6 % (0-10) Platelet Estimate Adequate (ADEQUATE) Sodium Level 136 mmol/L (136-145) Potassium Level 3.4 mmol/L (3.5-5.1) Chloride Level 102 mmol/L (98-107) Carbon Dioxide Level 24 mmol/L (21-32) Anion Gap 10 (6-14) Blood Urea Nitrogen 19 mg/dL (8-26) Creatinine 1.7 mg/dL (0.7-1.3) Estimated GFR (Cockcroft-Gault) 43.8 BUN/Creatinine Ratio 11 (6-20) Glucose Level 126 mg/dL (70-99) Calcium Level 8.7 mg/dL (8.5-10.1) Total Bilirubin 0.5 mg/dL (0.2-1.0) Aspartate Amino Transf (AST/SGOT) 48 U/L (15-37) Alanine Aminotransferase (ALT/SGPT) 69 U/L (16-63) Alkaline Phosphatase 116 U/L (46-116) Total Protein 6.7 g/dL (6.4-8.2) Albumin 3.3 g/dL (3.4-5.0) Albumin/Globulin Ratio 1.0 (1.0-1.7) Problem List Problems Medical Problems: (1) Accelerated hypertension Status: Acute (2) Acute kidney injury Status: Acute (3) Right upper quadrant pain Status: Acute Assessment/Plan s/p ladarius HO to d/c from surg POV f/u in one to two weeks JOSEPH HASTINGS MD Sep 08, 2018 10:27
--- NOTE | 2018-09-08 10:28 | PDOC ---
PROGRESS NOTES History of Present Illness History of Present Illness Assessment/Plan pod # 1 acute RUQ pain, acute leann, LC consult GI and gen surg. 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 Vitals Vitals Vital Signs Date Time Temp Pulse Resp B/P (MAP) Pulse Ox O2 Delivery O2 Flow Rate FiO2 09/08/18 08:19 82 162/89 1 08:18 Room Air 09/08/18 07:00 98.2 18 96 98.2 09/07/18 09:13 10.0 Physical Exam General: Alert, Oriented X3, Cooperative, No acute distress Heart: Regular rate, Normal S1, Normal S2, No murmurs Lungs: Clear Abdomen: Soft, Other (mild TTP INCISIONS DRY) Extremities: No clubbing, No cyanosis Skin: No rashes, No breakdown Labs LABS Laboratory Tests Test 09/08/18 07:05 White Blood Count 23.6 x10^3/uL (4.0-11.0) Red Blood Count 4.30 x10^6/uL (4.30-5.70) Hemoglobin 13.7 g/dL (13.0-17.5) Hematocrit 38.8 % (39.0-53.0) Mean Corpuscular Volume 90 fL (79-100) Mean Corpuscular Hemoglobin 32 pg (25-35) Mean Corpuscular Hemoglobin Concent 35 g/dL (31-37) Red Cell Distribution Width 13.8 % (11.5-14.5) Platelet Count 228 x10^3/uL (140-400) Neutrophils (%) (Auto) 85 % (31-73) Lymphocytes (%) (Auto) 8 % (24-48) Monocytes (%) (Auto) 7 % (0-9) Eosinophils (%) (Auto) 0 % (0-3) Basophils (%) (Auto) 1 % (0-3) Neutrophils # (Auto) 20.0 x10^3uL (1.8-7.7) Lymphocytes # (Auto) 1.9 x10^3/uL (1.0-4.8) Monocytes # (Auto) 1.6 x10^3/uL (0.0-1.1) Eosinophils # (Auto) 0.0 x10^3/uL (0.0-0.7) Basophils # (Auto) 0.1 x10^3/uL (0.0-0.2) Segmented Neutrophils % 82 % (35-66) Band Neutrophils % 2 % (0-9) Lymphocytes % 10 % (24-48) Monocytes % 6 % (0-10) Platelet Estimate Adequate (ADEQUATE) Sodium Level 136 mmol/L (136-145) Potassium Level 3.4 mmol/L (3.5-5.1) Chloride Level 102 mmol/L (98-107) Carbon Dioxide Level 24 mmol/L (21-32) Anion Gap 10 (6-14) Blood Urea Nitrogen 19 mg/dL (8-26) Creatinine 1.7 mg/dL (0.7-1.3) Estimated GFR (Cockcroft-Gault) 43.8 BUN/Creatinine Ratio 11 (6-20) Glucose Level 126 mg/dL (70-99) Calcium Level 8.7 mg/dL (8.5-10.1) Total Bilirubin 0.5 mg/dL (0.2-1.0) Aspartate Amino Transf (AST/SGOT) 48 U/L (15-37) Alanine Aminotransferase (ALT/SGPT) 69 U/L (16-63) Alkaline Phosphatase 116 U/L (46-116) Total Protein 6.7 g/dL (6.4-8.2) Albumin 3.3 g/dL (3.4-5.0) Albumin/Globulin Ratio 1.0 (1.0-1.7) Assessment and Plan Assessmemt and Plan Problems Medical Problems: (1) Accelerated hypertension Status: Acute (2) Acute kidney injury Status: Acute (3) Right upper quadrant pain Status: Acute Comment Review of Relevant I have reviewed the following items rojas (where applicable) has been applied. Labs Laboratory Tests Test 09/07/18 04:15 09/08/18 07:05 White Blood Count 14.7 x10^3/uL (4.0-11.0) 23.6 x10^3/uL (4.0-11.0) Red Blood Count 4.53 x10^6/uL (4.30-5.70) 4.30 x10^6/uL (4.30-5.70) Hemoglobin 14.4 g/dL (13.0-17.5) 13.7 g/dL (13.0-17.5) Hematocrit 40.2 % (39.0-53.0) 38.8 % (39.0-53.0) Mean Corpuscular Volume 89 fL (79-100) 90 fL (79-100) Mean Corpuscular Hemoglobin 32 pg (25-35) 32 pg (25-35) Mean Corpuscular Hemoglobin Concent 36 g/dL (31-37) 35 g/dL (31-37) Red Cell Distribution Width 13.7 % (11.5-14.5) 13.8 % (11.5-14.5) Platelet Count 237 x10^3/uL (140-400) 228 x10^3/uL (140-400) Neutrophils (%) (Auto) 76 % (31-73) 85 % (31-73) Lymphocytes (%) (Auto) 15 % (24-48) 8 % (24-48) Monocytes (%) (Auto) 6 % (0-9) 7 % (0-9) Eosinophils (%) (Auto) 2 % (0-3) 0 % (0-3) Basophils (%) (Auto) 1 % (0-3) 1 % (0-3) Neutrophils # (Auto) 11.3 x10^3uL (1.8-7.7) 20.0 x10^3uL (1.8-7.7) Lymphocytes # (Auto) 2.3 x10^3/uL (1.0-4.8) 1.9 x10^3/uL (1.0-4.8) Monocytes # (Auto) 0.9 x10^3/uL (0.0-1.1) 1.6 x10^3/uL (0.0-1.1) Eosinophils # (Auto) 0.2 x10^3/uL (0.0-0.7) 0.0 x10^3/uL (0.0-0.7) Basophils # (Auto) 0.1 x10^3/uL (0.0-0.2) 0.1 x10^3/uL (0.0-0.2) Sodium Level 138 mmol/L (136-145) 136 mmol/L (136-145) Potassium Level 3.2 mmol/L (3.5-5.1) 3.4 mmol/L (3.5-5.1) Chloride Level 103 mmol/L (98-107) 102 mmol/L (98-107) Carbon Dioxide Level 25 mmol/L (21-32) 24 mmol/L (21-32) Anion Gap 10 (6-14) 10 (6-14) Blood Urea Nitrogen 12 mg/dL (8-26) 19 mg/dL (8-26) Creatinine 1.4 mg/dL (0.7-1.3) 1.7 mg/dL (0.7-1.3) Estimated GFR (Cockcroft-Gault) 54.8 43.8 BUN/Creatinine Ratio 9 (6-20) 11 (6-20) Glucose Level 108 mg/dL (70-99) 126 mg/dL (70-99) Calcium Level 8.6 mg/dL (8.5-10.1) 8.7 mg/dL (8.5-10.1) Magnesium Level 1.5 mg/dL (1.8-2.4) Total Bilirubin 0.7 mg/dL (0.2-1.0) 0.5 mg/dL (0.2-1.0) Aspartate Amino Transf (AST/SGOT) 11 U/L (15-37) 48 U/L (15-37) Alanine Aminotransferase (ALT/SGPT) 25 U/L (16-63) 69 U/L (16-63) Alkaline Phosphatase 115 U/L (46-116) 116 U/L (46-116) Total Protein 6.9 g/dL (6.4-8.2) 6.7 g/dL (6.4-8.2) Albumin 3.4 g/dL (3.4-5.0) 3.3 g/dL (3.4-5.0) Albumin/Globulin Ratio 1.0 (1.0-1.7) 1.0 (1.0-1.7) Segmented Neutrophils % 82 % (35-66) Band Neutrophils % 2 % (0-9) Lymphocytes % 10 % (24-48) Monocytes % 6 % (0-10) Platelet Estimate Adequate (ADEQUATE) Laboratory Tests Test 09/08/18 07:05 White Blood Count 23.6 x10^3/uL (4.0-11.0) Red Blood Count 4.30 x10^6/uL (4.30-5.70) Hemoglobin 13.7 g/dL (13.0-17.5) Hematocrit 38.8 % (39.0-53.0) Mean Corpuscular Volume 90 fL (79-100) Mean Corpuscular Hemoglobin 32 pg (25-35) Mean Corpuscular Hemoglobin Concent 35 g/dL (31-37) Red Cell Distribution Width 13.8 % (11.5-14.5) Platelet Count 228 x10^3/uL (140-400) Neutrophils (%) (Auto) 85 % (31-73) Lymphocytes (%) (Auto) 8 % (24-48) Monocytes (%) (Auto) 7 % (0-9) Eosinophils (%) (Auto) 0 % (0-3) Basophils (%) (Auto) 1 % (0-3) Neutrophils # (Auto) 20.0 x10^3uL (1.8-7.7) Lymphocytes # (Auto) 1.9 x10^3/uL (1.0-4.8) Monocytes # (Auto) 1.6 x10^3/uL (0.0-1.1) Eosinophils # (Auto) 0.0 x10^3/uL (0.0-0.7) Basophils # (Auto) 0.1 x10^3/uL (0.0-0.2) Segmented Neutrophils % 82 % (35-66) Band Neutrophils % 2 % (0-9) Lymphocytes % 10 % (24-48) Monocytes % 6 % (0-10) Platelet Estimate Adequate (ADEQUATE) Sodium Level 136 mmol/L (136-145) Potassium Level 3.4 mmol/L (3.5-5.1) Chloride Level 102 mmol/L (98-107) Carbon Dioxide Level 24 mmol/L (21-32) Anion Gap 10 (6-14) Blood Urea Nitrogen 19 mg/dL (8-26) Creatinine 1.7 mg/dL (0.7-1.3) Estimated GFR (Cockcroft-Gault) 43.8 BUN/Creatinine Ratio 11 (6-20) Glucose Level 126 mg/dL (70-99) Calcium Level 8.7 mg/dL (8.5-10.1) Total Bilirubin 0.5 mg/dL (0.2-1.0) Aspartate Amino Transf (AST/SGOT) 48 U/L (15-37) Alanine Aminotransferase (ALT/SGPT) 69 U/L (16-63) Alkaline Phosphatase 116 U/L (46-116) Total Protein 6.7 g/dL (6.4-8.2) Albumin 3.3 g/dL (3.4-5.0) Albumin/Globulin Ratio 1.0 (1.0-1.7) Medications Current Medications Fentanyl Citrate (Fentanyl 2ml Vial) 50 mcg PRN Q15MIN PRN IV PAIN GREATER THAN 3/10 Last administered on 09/06/18at 02:46; Start 09/06/18 at 02:30; Stop at 18:21; Status DC Sodium Chloride 1,000 ml @ 1,000 mls/hr Q1H IV Last administered on 09/06/18at 02:46; Start 09/06/18 at 02:30; Stop 09/06/18 at 03:29; Status DC Ondansetron HCl (Zofran) 4 mg 1X ONCE IV Last administered on 09/06/18at 02:46 ; Start 09/06/18 at 02:30; Stop 09/06/18 at 02:31; Status DC Labetalol HCl (Normodyne Iv Push) 10 mg 1X ONCE IVP Last administered on at 03:54; Start 09/06/18 at 03:00; Stop 09/06/18 at 03:01; Status DC Labetalol HCl (Normodyne Iv Push) 10 mg 1X ONCE IVP Last administered on at 07:01; Start 09/06/18 at 05:15; Stop 09/06/18 at 05:16; Status DC Ondansetron HCl (Zofran) 4 mg PRN Q8HRS PRN IV NAUSEA/VOMITING Last administered on 09/06/18at 14:50; Start 09/06/18 at 05:00; Stop 09/07/18 at 04:59 ; Status DC Fentanyl Citrate (Fentanyl 2ml Vial) 50 mcg PRN Q1HR PRN IV PAIN; Start at 05:00; Stop 09/07/18 at 04:59; Status DC Sodium Chloride 1,000 ml @ 125 mls/hr Q8H IV Last administered on 09/06/18at 21 :00; Start 09/06/18 at 05:00; Stop 09/07/18 at 04:59; Status DC Labetalol HCl (Normodyne Iv Push) 10 mg PRN Q2HR PRN IVP SBP>185; Start at 05:15 Amlodipine Besylate (Norvasc) 5 mg DAILY PO Last administered on 09/08/18at 08: 19; Start 09/06/18 at 09:00 Tramadol HCl (Ultram) 50 mg PRN Q6HRS PRN PO MILD PAIN Last administered on at 08:18; Start 09/06/18 at 08:45 Diphenhydramine HCl (Benadryl) 25 mg PRN Q6HRS PRN PO ITCHING Last administered on 09/06/18at 14:47; Start 09/06/18 at 08:45 Ondansetron HCl (Zofran Odt) 4 mg PRN Q8HRS PRN PO NAUSEA/VOMITING; Start 09/06 at 08:45 Nicotine (Nicoderm Cq 14mg) 1 patch PRN DAILY PRN TD SMOKING CESSATION; Start 09/06/18 at 08:45 Sincalide 1.89 mcg/Sodium Chloride 30 ml @ 120 mls/hr 1X ONCE IV Last administered on 09/06/18at 12:08; Start 09/06/18 at 11:30; Stop 09/06/18 at 11:44 ; Status DC Cefazolin Sodium/ Dextrose 50 ml @ 100 mls/hr 1X PREOP IV Last administered on 09/07/18at 08:34; Start 09/06/18 at 14:30; Stop 09/07/18 at 18:00; Status DC Hydralazine HCl (Apresoline Inj) 10 mg PRN Q4HRS PRN IVP ELEVATED BP, 2ND CHOICE Last administered on 09/08/18at 03:53; Start 09/06/18 at 14:45 Sumatriptan Succinate (Imitrex) 6 mg 1X ONCE SQ ; Start 09/06/18 at 15:30; Stop 09/06/18 at 15:55; Status DC Cyclobenzaprine HCl (Flexeril) 5 mg PRN Q6HRS PRN PO MUSCLE SPASMS Last administered on 09/08/18at 08:18; Start 09/06/18 at 15:30 Ondansetron HCl (Zofran) 4 mg PRN Q6HRS PRN IV NAUSEA/VOMITING; Start 09/07/18 at 07:00; Stop 09/07/18 at 19:06; Status DC Fentanyl Citrate (Fentanyl 2ml Vial) 25 mcg PRN Q5MIN PRN IV MILD PAIN; Start 09/07/18 at 07:00; Stop 09/07/18 at 19:06; Status DC Fentanyl Citrate (Fentanyl 2ml Vial) 50 mcg PRN Q5MIN PRN IV MODERATE TO SEVERE PAIN Last administered on 09/07/18at 09:46; Start 09/07/18 at 07:00; Stop 09/07/18 at 19:06; Status DC Ringer's Solution 1,000 ml @ 30 mls/hr Q24H IV ; Start 09/07/18 at 07:00; Stop 09/07/18 at 11:14; Status DC Lidocaine HCl (Xylocaine-Mpf 1% 2ml Vial) 2 ml PRN 1X PRN ID PRIOR TO IV START ; Start 09/07/18 at 07:00; Stop 09/07/18 at 19:06; Status DC Prochlorperazine Edisylate (Compazine) 5 mg PACU PRN PRN IV NAUSEA, MRX1 Last administered on 09/07/18at 09:14; Start 09/07/18 at 07:00; Stop 09/07/18 at 19:06 ; Status DC Heparin Sodium (Porcine) 1000 unit/Sodium Chloride 1,001 ml @ 1,001 mls/hr 1X ONCE IRR Last administered on 09/07/18at 08:04; Start 09/07/18 at 06:00; Stop at 06:59; Status DC Bupivacaine HCl/ Epinephrine Bitart (Sensorcain-Mpf Epi 0.5%-[id number]) 30 ml STK -MED ONCE .ROUTE Last administered on 09/07/18at 08:04; Start 09/07/18 at 06:44 ; Stop 09/07/18 at 06:46; Status DC Cellulose (Surgicel Hemostat 2x3) 1 each STK-MED ONCE .ROUTE ; Start 09/07/18 at 06:44; Stop 09/07/18 at 06:46; Status DC Iohexol (Omnipaque 300 Mg/ml) 100 ml STK-MED ONCE .ROUTE Last administered on at 08:04; Start 09/07/18 at 06:45; Stop 09/07/18 at 06:46; Status DC Bisacodyl (Dulcolax Supp) 10 mg STK-MED ONCE .ROUTE Last administered on at 08:04; Start 09/07/18 at 06:45; Stop 09/07/18 at 06:47; Status DC Midazolam HCl (Versed) 2 mg STK-MED ONCE .ROUTE ; Start 09/07/18 at 07:22; Stop 09/07/18 at 07:24; Status DC Fentanyl Citrate (Fentanyl 5ml Vial) 250 mcg STK-MED ONCE .ROUTE ; Start at 07:22; Stop 09/07/18 at 07:24; Status DC Rocuronium [place] (Zemuron) 50 mg STK-MED ONCE .ROUTE ; Start 09/07/18 at 07:23 ; Stop 09/07/18 at 07:25; Status DC Hydralazine HCl (Apresoline Inj) 20 mg STK-MED ONCE .ROUTE ; Start 09/07/18 at 07:59; Stop 09/07/18 at 08:01; Status DC Labetalol HCl (Normodyne Iv Push) 20 mg 1X ONCE IVP ; Start 09/07/18 at 08:30; Stop 09/07/18 at 08:31; Status DC Propofol 20 ml @ As Directed STK-MED ONCE IV ; Start 09/07/18 at 08:20; Stop at 08:21; Status DC Dexamethasone Sodium Phosphate (Decadron) 20 mg STK-MED ONCE .ROUTE ; Start at 08:20; Stop 09/07/18 at 08:21; Status DC Lidocaine HCl (Lidocaine Pf 2% Vial) 5 ml STK-MED ONCE .ROUTE ; Start 09/07/18 at 08:20; Stop 09/07/18 at 08:22; Status DC Ondansetron HCl (Zofran) 4 mg STK-MED ONCE .ROUTE ; Start 09/07/18 at 08:20; Stop 09/07/18 at 08:22; Status DC Phenylephrine HCl (PHENYLEPHRINE in 0.9% NACL PF) 1 mg STK-MED ONCE IV ; Start 09/07/18 at 08:29; Stop 09/07/18 at 08:31; Status DC Neostigmine Methylsulfate (Bloxiverz) 10 mg STK-MED ONCE .ROUTE ; Start at 08:40; Stop 09/07/18 at 08:42; Status DC Glycopyrrolate (Robinul) 1 mg STK-MED ONCE .ROUTE ; Start 09/07/18 at 08:40; Stop 09/07/18 at 08:42; Status DC Sodium Chloride (Normal Saline Flush) 3 ml QSHIFT PRN IV AFTER MEDS AND BLOOD DRAWS; Start 09/07/18 at 09:00 Ringer's Solution 1,000 ml @ 100 mls/hr Q10H IV ; Start 09/07/18 at 09:30; Stop 09/08/18 at 07:12; Status DC Dextrose (Dextrose 50%-Water Syringe) 12.5 gm PRN Q15MIN PRN IV SEE COMMENTS; Start 09/07/18 at 09:00 Acetaminophen/ Hydrocodone Bitart (Lortab 5/325) 1 tab PRN Q4HRS PRN PO MODERATE-SEVERE PAIN; Start 09/07/18 at 09:00 Ketorolac Tromethamine (Toradol 15mg Vial) 15 mg PRN Q6HRS PRN IV PAIN Last administered on 09/07/18at 11:51; Start 09/07/18 at 09:00; Stop 09/12/18 at 08:59 Docusate Sodium (Colace) 100 mg BID PO Last administered on 09/07/18at 20:44; Start 09/07/18 at 09:00 Ondansetron HCl (Zofran) 4 mg PRN Q6HRS PRN IV NAUESA, 1ST CHOICE; Start at 09:00 Fentanyl Citrate (Fentanyl 2ml Vial) 100 mcg STK-MED ONCE .ROUTE ; Start at 09:08; Stop 09/07/18 at 09:10; Status DC Prochlorperazine Edisylate (Compazine) 10 mg STK-MED ONCE .ROUTE ; Start at 09:08; Stop 09/07/18 at 09:10; Status DC Fentanyl Citrate (Fentanyl 2ml Vial) 100 mcg STK-MED ONCE .ROUTE ; Start at 09:35; Stop 09/07/18 at 09:37; Status DC Ketorolac Tromethamine (Toradol 30mg Vial) 30 mg STK-MED ONCE .ROUTE ; Start at 09:46; Stop 09/07/18 at 09:48; Status DC Potassium Chloride (Klor-Con) 40 meq 1X ONCE PO Last administered on at 20:44; Start 09/07/18 at 19:15; Stop 09/07/18 at 19:16; Status DC Potassium Chloride (Klor-Con) 20 meq [id number] PO Last administered on at 08:18; Start 09/08/18 at 08:00 Active Scripts Active Zofran (Ondansetron Hcl) 4 Mg Tablet 1 Tab PO Q8HRS PRN Reported Tramadol Hcl 50 Mg Tablet 1 Tab PO TID Ibuprofen 800 Mg Tablet 800 Mg PO Q6H PRN Benadryl (Diphenhydramine Hcl) 25 Mg Capsule 25 Mg PO PRN Q6HRS PRN Lisinopril-Hctz 20-12.5 Mg Tab (Lisinopril/Hydrochlorothiazide) 1 Each Tablet 1 Tab PO DAILY Vitals/I & O Vital Sign - Last 24 Hours 09/07/18 09/07/18 09/07/18 09/07/18 10:40 10:55 11:00 11:10 Temp 98.0 98.0 Pulse 74 72 75 64 Resp 18 B/P (MAP) 127/74 (91) 116/79 (91) 127/75 (92) 144/81 (102) Pulse Ox 99 98 100 98 O2 Delivery Room Air 09/07/18 09/07/18 09/07/18 09/07/18 11:40 12:15 12:39 12:48 Pulse 68 68 68 B/P (MAP) 144/98 (113) 161/103 (122) 161/103 Pulse Ox 98 100 O2 Delivery Room Air 1/15/09/07/18 09/07/18 09/07/18 15:00 17:04 17:46 19:10 Temp 98.0 98.1 98.0 98.1 Pulse 82 78 92 94 Resp 18 16 B/P (MAP) 148/73 (98) 180/85 147/72 (97) 145/81 (102) Pulse Ox 98 97 O2 Delivery Room Air 09/07/18 09/07/18 09/08/18 09/08/18 19:10 23:05 03:43 03:53 Temp 98.7 98.9 98.7 98.9 Pulse 97 92 92 Resp 16 18 B/P (MAP) 134/69 (90) 171/81 (111) 171/81 Pulse Ox 97 96 O2 Delivery Room Air Room Air Room Air 09/08/18 09/08/18 09/08/18 09/08/18 04:53 07:00 07:45 08:18 Temp 98.2 98.2 Pulse 82 Resp 18 B/P (MAP) 150/76 (100) 162/89 (113) Pulse Ox 96 O2 Delivery Room Air Room Air Room Air 09/08/18 08:19 Pulse 82 B/P (MAP) 162/89 Intake and Output 09/07/18 09/07/18 09/08/18 15:01 23:01 07:01 Intake Total 1150 ml 300 ml 800 ml Output Total 75 ml 250 ml Balance 1075 ml 50 ml 800 ml BUNNY RDZ MD Sep 08, 2018 10:28
[2018-09-08 11:11] VITALS: BP 170/93
--- NOTE | 2018-09-08 11:14 | PDOC3 ---
Discharge Summary Date of Admission: Sep 06, 2018 Date of Discharge: Sep 08, 2018 Follow-Up: 1-2 days (WITH PCP FOR BLOOD WORK, BP CHECK) Admitting Diagnosis comment: Assessment/Plan pod # 1 acute RUQ pain, acute leann, LC consult GI and gen surg. done accelerated htn, ACUTE RENAL INJURY, VASOMOTOR SIRS, tachypnea RESOLVED and leukocytosis WILL D/C WITH CIPRO 500MG QID X 7 DAYS, NORVASC 10 MG PO DAILY no fever, and vitals improved from admit without antibiotics, NO FEVER tobacco use disorder, DISCUSSED CESSATION WANTS TO GO HOME YUNIOR DIET WELL TO SEE PCP TOMORROW FOR BLOOD WORK INC WATER INTAKE Vitals Vitals Vital Signs Date Time Temp Pulse Resp B/P (MAP) Pulse Ox O2 Delivery O2 Flow Rate FiO2 09/08/18 08:19 82 162/89 09/08/18 08:18 Room Air 09/08/18 07:00 98.2 18 96 98.2 09/07/18 09:13 10.0 Physical Exam General: Alert, Oriented X3, Cooperative, No acute distress, ROOM AIR Heart: Regular rate, Normal S1, Normal S2, No murmurs Lungs: Clear Abdomen: Soft, Other (mild TTP INCISIONS DRY) Extremities: No clubbing, No cyanosis Skin: No rashes, No breakdown FINAL DIAGNOSIS Problems Medical Problems: (1) Accelerated hypertension Status: Acute (2) Acute kidney injury Status: Acute (3) Right upper quadrant pain Status: Acute Brief Hospital Course Mr. Joyce is a 43 old [sex] who presented with [ACUTE CHOLECYSTITIS/HTN ] CONDITION AT DISCHARGE: Improved Discharge Medications Current Medications Fentanyl Citrate (Fentanyl 2ml Vial) 50 mcg PRN Q15MIN PRN IV PAIN GREATER THAN 3/10 Last administered on 09/06/18at 02:46; Start 09/06/18 at 02:30; Stop at 18:21; Status DC Sodium Chloride 1,000 ml @ 1,000 mls/hr Q1H IV Last administered on 09/06/18at 02:46; Start 09/06/18 at 02:30; Stop 09/06/18 at 03:29; Status DC Ondansetron HCl (Zofran) 4 mg 1X ONCE IV Last administered on 09/06/18at 02:46 ; Start 09/06/18 at 02:30; Stop 09/06/18 at 02:31; Status DC Labetalol HCl (Normodyne Iv Push) 10 mg 1X ONCE IVP Last administered on at 03:54; Start 09/06/18 at 03:00; Stop 09/06/18 at 03:01; Status DC Labetalol HCl (Normodyne Iv Push) 10 mg 1X ONCE IVP Last administered on at 07:01; Start 09/06/18 at 05:15; Stop 09/06/18 at 05:16; Status DC Ondansetron HCl (Zofran) 4 mg PRN Q8HRS PRN IV NAUSEA/VOMITING Last administered on 09/06/18at 14:50; Start 09/06/18 at 05:00; Stop 09/07/18 at 04:59 ; Status DC Fentanyl Citrate (Fentanyl 2ml Vial) 50 mcg PRN Q1HR PRN IV PAIN; Start at 05:00; Stop 09/07/18 at 04:59; Status DC Sodium Chloride 1,000 ml @ 125 mls/hr Q8H IV Last administered on 09/06/18at 21 :00; Start 09/06/18 at 05:00; Stop 09/07/18 at 04:59; Status DC Labetalol HCl (Normodyne Iv Push) 10 mg PRN Q2HR PRN IVP SBP>185; Start at 05:15 Amlodipine Besylate (Norvasc) 5 mg DAILY PO Last administered on 09/08/18at 08: 19; Start 09/06/18 at 09:00 Tramadol HCl (Ultram) 50 mg PRN Q6HRS PRN PO MILD PAIN Last administered on at 08:18; Start 09/06/18 at 08:45 Diphenhydramine HCl (Benadryl) 25 mg PRN Q6HRS PRN PO ITCHING Last administered on 09/06/18at 14:47; Start 09/06/18 at 08:45 Ondansetron HCl (Zofran Odt) 4 mg PRN Q8HRS PRN PO NAUSEA/VOMITING; Start 09/06 at 08:45 Nicotine (Nicoderm Cq 14mg) 1 patch PRN DAILY PRN TD SMOKING CESSATION; Start 09/06/18 at 08:45 Sincalide 1.89 mcg/Sodium Chloride 30 ml @ 120 mls/hr 1X ONCE IV Last administered on 09/06/18at 12:08; Start 09/06/18 at 11:30; Stop 09/06/18 at 11:44 ; Status DC Cefazolin Sodium/ Dextrose 50 ml @ 100 mls/hr 1X PREOP IV Last administered on 09/07/18at 08:34; Start 09/06/18 at 14:30; Stop 09/07/18 at 18:00; Status DC Hydralazine HCl (Apresoline Inj) 10 mg PRN Q4HRS PRN IVP ELEVATED BP, 2ND CHOICE Last administered on 09/08/18at 03:53; Start 09/06/18 at 14:45 Sumatriptan Succinate (Imitrex) 6 mg 1X ONCE SQ ; Start 09/06/18 at 15:30; Stop 09/06/18 at 15:55; Status DC Cyclobenzaprine HCl (Flexeril) 5 mg PRN Q6HRS PRN PO MUSCLE SPASMS Last administered on 09/08/18at 08:18; Start 09/06/18 at 15:30 Ondansetron HCl (Zofran) 4 mg PRN Q6HRS PRN IV NAUSEA/VOMITING; Start 09/07/18 at 07:00; Stop 09/07/18 at 19:06; Status DC Fentanyl Citrate (Fentanyl 2ml Vial) 25 mcg PRN Q5MIN PRN IV MILD PAIN; Start 09/07/18 at 07:00; Stop 09/07/18 at 19:06; Status DC Fentanyl Citrate (Fentanyl 2ml Vial) 50 mcg PRN Q5MIN PRN IV MODERATE TO SEVERE PAIN Last administered on 09/07/18at 09:46; Start 09/07/18 at 07:00; Stop 09/07/18 at 19:06; Status DC Ringer's Solution 1,000 ml @ 30 mls/hr Q24H IV ; Start 09/07/18 at 07:00; Stop 09/07/18 at 11:14; Status DC Lidocaine HCl (Xylocaine-Mpf 1% 2ml Vial) 2 ml PRN 1X PRN ID PRIOR TO IV START ; Start 09/07/18 at 07:00; Stop 09/07/18 at 19:06; Status DC Prochlorperazine Edisylate (Compazine) 5 mg PACU PRN PRN IV NAUSEA, MRX1 Last administered on 09/07/18at 09:14; Start 09/07/18 at 07:00; Stop 09/07/18 at 19:06 ; Status DC Heparin Sodium (Porcine) 1000 unit/Sodium Chloride 1,001 ml @ 1,001 mls/hr 1X ONCE IRR Last administered on 09/07/18at 08:04; Start 09/07/18 at 06:00; Stop at 06:59; Status DC Bupivacaine HCl/ Epinephrine Bitart (Sensorcain-Mpf Epi 0.5%-1:[id number]) 30 ml STK -MED ONCE .ROUTE Last administered on 09/07/18at 08:04; Start 09/07/18 at 06:44 ; Stop 09/07/18 at 06:46; Status DC Cellulose (Surgicel Hemostat 2x3) 1 each STK-MED ONCE .ROUTE ; Start 09/07/18 at 06:44; Stop 09/07/18 at 06:46; Status DC Iohexol (Omnipaque 300 Mg/ml) 100 ml STK-MED ONCE .ROUTE Last administered on at 08:04; Start 09/07/18 at 06:45; Stop 09/07/18 at 06:46; Status DC Bisacodyl (Dulcolax Supp) 10 mg STK-MED ONCE .ROUTE Last administered on at 08:04; Start 09/07/18 at 06:45; Stop 09/07/18 at 06:47; Status DC Midazolam HCl (Versed) 2 mg STK-MED ONCE .ROUTE ; Start 09/07/18 at 07:22; Stop 09/07/18 at 07:24; Status DC Fentanyl Citrate (Fentanyl 5ml Vial) 250 mcg STK-MED ONCE .ROUTE ; Start at 07:22; Stop 09/07/18 at 07:24; Status DC Rocuronium [place] (Zemuron) 50 mg STK-MED ONCE .ROUTE ; Start 09/07/18 at 07:23 ; Stop 09/07/18 at 07:25; Status DC Hydralazine HCl (Apresoline Inj) 20 mg STK-MED ONCE .ROUTE ; Start 09/07/18 at 07:59; Stop 09/07/18 at 08:01; Status DC Labetalol HCl (Normodyne Iv Push) 20 mg 1X ONCE IVP ; Start 09/07/18 at 08:30; Stop 09/07/18 at 08:31; Status DC Propofol 20 ml @ As Directed STK-MED ONCE IV ; Start 09/07/18 at 08:20; Stop at 08:21; Status DC Dexamethasone Sodium Phosphate (Decadron) 20 mg STK-MED ONCE .ROUTE ; Start at 08:20; Stop 09/07/18 at 08:21; Status DC Lidocaine HCl (Lidocaine Pf 2% Vial) 5 ml STK-MED ONCE .ROUTE ; Start 09/07/18 at 08:20; Stop 09/07/18 at 08:22; Status DC Ondansetron HCl (Zofran) 4 mg STK-MED ONCE .ROUTE ; Start 09/07/18 at 08:20; Stop 09/07/18 at 08:22; Status DC Phenylephrine HCl (PHENYLEPHRINE in 0.9% NACL PF) 1 mg STK-MED ONCE IV ; Start 09/07/18 at 08:29; Stop 09/07/18 at 08:31; Status DC Neostigmine Methylsulfate (Bloxiverz) 10 mg STK-MED ONCE .ROUTE ; Start at 08:40; Stop 09/07/18 at 08:42; Status DC Glycopyrrolate (Robinul) 1 mg STK-MED ONCE .ROUTE ; Start 09/07/18 at 08:40; Stop 09/07/18 at 08:42; Status DC Sodium Chloride (Normal Saline Flush) 3 ml QSHIFT PRN IV AFTER MEDS AND BLOOD DRAWS; Start 09/07/18 at 09:00 Ringer's Solution 1,000 ml @ 100 mls/hr Q10H IV ; Start 09/07/18 at 09:30; Stop 09/08/18 at 07:12; Status DC Dextrose (Dextrose 50%-Water Syringe) 12.5 gm PRN Q15MIN PRN IV SEE COMMENTS; Start 09/07/18 at 09:00 Acetaminophen/ Hydrocodone Bitart (Lortab 5/325) 1 tab PRN Q4HRS PRN PO MODERATE-SEVERE PAIN; Start 09/07/18 at 09:00 Ketorolac Tromethamine (Toradol 15mg Vial) 15 mg PRN Q6HRS PRN IV PAIN Last administered on 09/07/18at 11:51; Start 09/07/18 at 09:00; Stop 09/12/18 at 08:59 Docusate Sodium (Colace) 100 mg BID PO Last administered on 09/07/18at 20:44; Start 09/07/18 at 09:00 Ondansetron HCl (Zofran) 4 mg PRN Q6HRS PRN IV NAUESA, 1ST CHOICE; Start at 09:00 Fentanyl Citrate (Fentanyl 2ml Vial) 100 mcg STK-MED ONCE .ROUTE ; Start at 09:08; Stop 09/07/18 at 09:10; Status DC Prochlorperazine Edisylate (Compazine) 10 mg STK-MED ONCE .ROUTE ; Start at 09:08; Stop 09/07/18 at 09:10; Status DC Fentanyl Citrate (Fentanyl 2ml Vial) 100 mcg STK-MED ONCE .ROUTE ; Start at 09:35; Stop 09/07/18 at 09:37; Status DC Ketorolac Tromethamine (Toradol 30mg Vial) 30 mg STK-MED ONCE .ROUTE ; Start at 09:46; Stop 09/07/18 at 09:48; Status DC Potassium Chloride (Klor-Con) 40 meq 1X ONCE PO Last administered on at 20:44; Start 09/07/18 at 19:15; Stop 09/07/18 at 19:16; Status DC Potassium Chloride (Klor-Con) 20 meq DAILYWBKFT PO Last administered on at 08:18; Start 09/08/18 at 08:00 Active Scripts Active Zofran (Ondansetron Hcl) 4 Mg Tablet 1 Tab PO Q8HRS PRN Reported Tramadol Hcl 50 Mg Tablet 1 Tab PO TID Ibuprofen 800 Mg Tablet 800 Mg PO Q6H PRN Benadryl (Diphenhydramine Hcl) 25 Mg Capsule 25 Mg PO PRN Q6HRS PRN Lisinopril-Hctz 20-12.5 Mg Tab (Lisinopril/Hydrochlorothiazide) 1 Each Tablet 1 Tab PO DAILY Vital Signs Vital Signs Date Time Temp Pulse Resp B/P (MAP) Pulse Ox O2 Delivery O2 Flow Rate FiO2 09/08/18 08:19 82 162/89 09/08/18 08:18 Room Air 09/08/18 07:00 98.2 18 96 98.2 09/07/18 09:13 10.0 Labs Laboratory Tests Test 09/07/18 04:15 09/08/18 07:05 White Blood Count 14.7 x10^3/uL (4.0-11.0) 23.6 x10^3/uL (4.0-11.0) Red Blood Count 4.53 x10^6/uL (4.30-5.70) 4.30 x10^6/uL (4.30-5.70) Hemoglobin 14.4 g/dL (13.0-17.5) 13.7 g/dL (13.0-17.5) Hematocrit 40.2 % (39.0-53.0) 38.8 % (39.0-53.0) Mean Corpuscular Volume 89 fL (79-100) 90 fL (79-100) Mean Corpuscular Hemoglobin 32 pg (25-35) 32 pg (25-35) Mean Corpuscular Hemoglobin Concent 36 g/dL (31-37) 35 g/dL (31-37) Red Cell Distribution Width 13.7 % (11.5-14.5) 13.8 % (11.5-14.5) Platelet Count 237 x10^3/uL (140-400) 228 x10^3/uL (140-400) Neutrophils (%) (Auto) 76 % (31-73) 85 % (31-73) Lymphocytes (%) (Auto) 15 % (24-48) 8 % (24-48) Monocytes (%) (Auto) 6 % (0-9) 7 % (0-9) Eosinophils (%) (Auto) 2 % (0-3) 0 % (0-3) Basophils (%) (Auto) 1 % (0-3) 1 % (0-3) Neutrophils # (Auto) 11.3 x10^3uL (1.8-7.7) 20.0 x10^3uL (1.8-7.7) Lymphocytes # (Auto) 2.3 x10^3/uL (1.0-4.8) 1.9 x10^3/uL (1.0-4.8) Monocytes # (Auto) 0.9 x10^3/uL (0.0-1.1) 1.6 x10^3/uL (0.0-1.1) Eosinophils # (Auto) 0.2 x10^3/uL (0.0-0.7) 0.0 x10^3/uL (0.0-0.7) Basophils # (Auto) 0.1 x10^3/uL (0.0-0.2) 0.1 x10^3/uL (0.0-0.2) Sodium Level 138 mmol/L (136-145) 136 mmol/L (136-145) Potassium Level 3.2 mmol/L (3.5-5.1) 3.4 mmol/L (3.5-5.1) Chloride Level 103 mmol/L (98-107) 102 mmol/L (98-107) Carbon Dioxide Level 25 mmol/L (21-32) 24 mmol/L (21-32) Anion Gap 10 (6-14) 10 (6-14) Blood Urea Nitrogen 12 mg/dL (8-26) 19 mg/dL (8-26) Creatinine 1.4 mg/dL (0.7-1.3) 1.7 mg/dL (0.7-1.3) Estimated GFR (Cockcroft-Gault) 54.8 43.8 BUN/Creatinine Ratio 9 (6-20) 11 (6-20) Glucose Level 108 mg/dL (70-99) 126 mg/dL (70-99) Calcium Level 8.6 mg/dL (8.5-10.1) 8.7 mg/dL (8.5-10.1) Magnesium Level 1.5 mg/dL (1.8-2.4) Total Bilirubin 0.7 mg/dL (0.2-1.0) 0.5 mg/dL (0.2-1.0) Aspartate Amino Transf (AST/SGOT) 11 U/L (15-37) 48 U/L (15-37) Alanine Aminotransferase (ALT/SGPT) 25 U/L (16-63) 69 U/L (16-63) Alkaline Phosphatase 115 U/L (46-116) 116 U/L (46-116) Total Protein 6.9 g/dL (6.4-8.2) 6.7 g/dL (6.4-8.2) Albumin 3.4 g/dL (3.4-5.0) 3.3 g/dL (3.4-5.0) Albumin/Globulin Ratio 1.0 (1.0-1.7) 1.0 (1.0-1.7) Segmented Neutrophils % 82 % (35-66) Band Neutrophils % 2 % (0-9) Lymphocytes % 10 % (24-48) Monocytes % 6 % (0-10) Platelet Estimate Adequate (ADEQUATE) Laboratory Tests Test 09/08/18 07:05 White Blood Count 23.6 x10^3/uL (4.0-11.0) Red Blood Count 4.30 x10^6/uL (4.30-5.70) Hemoglobin 13.7 g/dL (13.0-17.5) Hematocrit 38.8 % (39.0-53.0) Mean Corpuscular Volume 90 fL (79-100) Mean Corpuscular Hemoglobin 32 pg (25-35) Mean Corpuscular Hemoglobin Concent 35 g/dL (31-37) Red Cell Distribution Width 13.8 % (11.5-14.5) Platelet Count 228 x10^3/uL (140-400) Neutrophils (%) (Auto) 85 % (31-73) Lymphocytes (%) (Auto) 8 % (24-48) Monocytes (%) (Auto) 7 % (0-9) Eosinophils (%) (Auto) 0 % (0-3) Basophils (%) (Auto) 1 % (0-3) Neutrophils # (Auto) 20.0 x10^3uL (1.8-7.7) Lymphocytes # (Auto) 1.9 x10^3/uL (1.0-4.8) Monocytes # (Auto) 1.6 x10^3/uL (0.0-1.1) Eosinophils # (Auto) 0.0 x10^3/uL (0.0-0.7) Basophils # (Auto) 0.1 x10^3/uL (0.0-0.2) Segmented Neutrophils % 82 % (35-66) Band Neutrophils % 2 % (0-9) Lymphocytes % 10 % (24-48) Monocytes % 6 % (0-10) Platelet Estimate Adequate (ADEQUATE) Sodium Level 136 mmol/L (136-145) Potassium Level 3.4 mmol/L (3.5-5.1) Chloride Level 102 mmol/L (98-107) Carbon Dioxide Level 24 mmol/L (21-32) Anion Gap 10 (6-14) Blood Urea Nitrogen 19 mg/dL (8-26) Creatinine 1.7 mg/dL (0.7-1.3) Estimated GFR (Cockcroft-Gault) 43.8 BUN/Creatinine Ratio 11 (6-20) Glucose Level 126 mg/dL (70-99) Calcium Level 8.7 mg/dL (8.5-10.1) Total Bilirubin 0.5 mg/dL (0.2-1.0) Aspartate Amino Transf (AST/SGOT) 48 U/L (15-37) Alanine Aminotransferase (ALT/SGPT) 69 U/L (16-63) Alkaline Phosphatase 116 U/L (46-116) Total Protein 6.7 g/dL (6.4-8.2) Albumin 3.3 g/dL (3.4-5.0) Albumin/Globulin Ratio 1.0 (1.0-1.7) Allergies Allergies Coded Allergies Type Severity Reaction Last Updated Verified haloperidol Allergy Intermediate "lock jaw" 04/10/14 Yes hydromorphone Allergy Mild Itching 07/26/15 Yes oxycodone Allergy Mild Itching 07/26/15 Yes Disposition/Orders: D/C to Home Patient Instructions D/C PLANNING 40 MIN BUNNY RDZ MD Sep 08, 2018 11:14
--- NOTE | 2018-09-08 11:16 | DISCH ---
DISCHARGE INSTRUCTIONS Condition on Discharge Condition on Discharge: Stable Activity After Discharge Activity Instructions for Disc: No restrictions, Activity as tolerated Lifting Instructions after Dis: No heavy lifting, No pulling or pushing Exercise Instruction after Dis: Walk 10 min, 3 x per day Driving Instructions after Dis: Do not drive Weight Bearing Status after Di: As tolerated Diet after Discharge Diet after Discharge: No Added Salt, Regular Wound Incision Care Wound/Incision Care: No wound care needed Checks after Discharge Checks after discharge: Check blood press - daily Contacting the DR. after DC Call your doctor for: If your condition worsens Treatment/Equipment after DC Adaptive Equipment Issued: None BUNNY RDZ MD Sep 08, 2018 11:15
[2018-09-08] MEDS ORDERED: POTA20TA4 PO (11:19)
[2018-09-08] MEDS ORDERED: AMLO10TA8 PO (11:19)
[2018-09-08] MEDS ORDERED: DOCU-109 PO (11:19)
[2018-09-08] MEDS ORDERED: amLODIPine BESYLATE 5 MG TABLET PO ONE (12:00)
[2018-09-08] MEDS ORDERED: cloNIDine HCL 0.2 MG TABLET PO ONE (14:45)
[2018-09-08 15:38] VITALS: BP 173/93
--- NOTE | 2018-09-08 16:11 | PATHOLOGY ---
[facility] Accession Number: [id number] . 01 Material submitted: . GALLBLADDER AND CONTENTS . 01 Clinical history: . RUQ pain . 02 Diagnosis: Gallbladder, laparoscopic cholecystectomy: - Cholesterolosis. - Chronic and focal mild acute cholecystitis with focally increased eosinophils. - Focal lipogranulomata of gallbladder neck lymph node. (JPM:form stripper; 09/08/2018) MBR/09/08/2018 . 02 Comment: There is no evidence of malignancy. (JPM:form stripper; 09/08/2018) . 02 Electronically signed: . Kris Pagan MD, Pathologist NPI- [id number] . 01 Gross description: . The specimen is received in formalin, labeled "Isiah, Greg, gallbladder and contents" and consists of an intact green-hoang and hemorrhagic gallbladder measuring 9.1 cm in length and up to 4.0 cm in diameter. Opening reveals a lumen filled with tenacious green bile and no calculi. The proximal margin is inked black. The mucosa is green with yellow highlights and no masses or lesions. The slightly edematous and fatty wall ranges from 0.1-0.4 cm. Located adjacent the neck aspect is a lymph node candidate measuring 0.9 x 0.6 cm. Collections Attorney sections are submitted in A1-A3 with the lymph node candidate bisected in A3. (DAYNAY; 09/07/2018) SYU/SYU . 02 Pathologist provided ICD-10: K81.2, K82.4 . 02 CPT . 496202 Specimen Comment: A courtesy copy of this report has been sent to Specimen Comment: [phone], , . Specimen Comment: Report sent to ,DR GARCIA / DR SAENZ Specimen Comment: A duplicate report has been generated due to demographic updates. Performed at: 01 [facility] [address] [id number] MD Abram Siddiqui MD Phone: [phone] Performed at: 02 [facility] [address], [place] [id number] MD Kris Pagan MD Phone: [phone]
--- NOTE | 2018-09-08 17:55 | NUR ---
Discharge Note: NORMA MEYER [address] Discharge instructions and discharge home medications reviewed with Patient and and a copy given. All questions have been answered and understanding verbalized. The following instructions and handouts were given: ladarius faulkner care after, sodium controlled diet Discontinued lines and drains: Peripheral IV intact. Patient discharged to Home or Self Care with Spouse via Wheelchair
--- NOTE | 2018-09-08 17:58 | NUR ---
RN NOTE prescription for clonidine 0.2 called in to [facility] per doctor porfirio telephone order
[2018-09-08] MEDS ORDERED: cloNIDine HCL 0.2 MG TABLET PO SCH (21:00)
[2018-09-09] MEDS ORDERED: amLODIPine BESYLATE 5 MG TABLET PO SCH (09:00)
[2018-09-09] MEDS ORDERED: amLODIPine BESYLATE 10 MG TABLET PO SCH (09:00)
== END 2018-09-08 17:55 | disposition home or self-care (01) | DRG 417 ==
LOC: ER 02:13 → 2 SOUTH 05:29
PROVIDERS: ADMIT Internal Medicine; ATTEND Internal Medicine
PROC: BF101ZZ Fluoroscopy of Bile Ducts using Low Osmolar Contrast (ICD-10-PCS; 2018-09-07)
PROC: 0FT44ZZ Resection of Gallbladder, Percutaneous Endoscopic Approach (ICD-10-PCS; principal; 2018-09-07 07:30)
DX: K81.0 Acute cholecystitis (principal); N17.0 Acute kidney failure with tubular necrosis; R65.10 Systemic inflammatory response syndrome (SIRS) of non-infectious origin without acute organ dysfunction; E78.5 Hyperlipidemia, unspecified; G43.909 Migraine, unspecified, not intractable, without status migrainosus; I10 Essential (primary) hypertension; K57.90 Diverticulosis of intestine, part unspecified, without perforation or abscess without bleeding; F17.210 Nicotine dependence, cigarettes, uncomplicated; R74.0 Nonspecific elevation of levels of transaminase and lactic acid dehydrogenase [LDH]; K40.90 Unilateral inguinal hernia, without obstruction or gangrene, not specified as recurrent; Z88.8 Allergy status to other drugs, medicaments and biological substances; Z88.5 Allergy status to narcotic agent
CPT/HCPCS: 36415; 74176; 74300; 76705; 76770; 78227; 80053; 81001; 82570; 83690; 83735; 84156; 85007; 85025; 88304; 93005; 96374; 96375; 96376; A7015; A9537; J0360; J0696; J0780; J1100; J1644; J1885; J2001; J2250; J2370; J2405; J2704; J2710; J2805; J3010; J3490; J7030; J7120; Q0163; Q9967; 99285-25; G0378

== ENCOUNTER 2018-11-14 18:07 | Emergency (ER) | payer OTHER ==
[~2018-11-14] VITALS: Ht 182.9 cm; Wt 95.3 kg
[~2018-11-14 18:07] MED LIST changes: +AMLO10TA8 PO; +DOCU-109 PO; +POTA20TA4 PO
[2018-11-14] MEDS ORDERED: IV NORMAL SALINE 1000ML BAG 1,000 ML IV ONE ×2 (19:15→21:00)
--- NOTE | 2018-11-14 19:39 | RAD ---
Abdominal and Pelvis CT, Without Contrast: History: Urinary retention and pain in the area of bladder Comparison: None. Procedure: Axial images are obtained of the abdomen and pelvis, without IV or oral contrast. CT Abdomen without Contrast: Findings: Evaluation of solid organs is limited without contrast. Evaluation of stomach and bowel is limited without oral contrast. Liver: The millimeter hypoattenuating lesion in the right lobe of liver posteriorly is small difficult to characterize but likely a cyst Spleen: Normal. Pancreas: Normal. Adrenal Glands: Normal. Kidneys: Normal. There is no free air or free fluid. There is no lymphadenopathy. Impression: Please see CT Pelvis without Contrast. End Impression. CT Pelvis without Contrast: Findings: The urinary bladder appears normal. There is no free fluid. There is no lymphadenopathy. There is no pericolonic inflammation identified. The appendix is normal. The left colon is collapsed, limiting its evaluation. Impression: No acute findings. End impression PQRS Compliance Statement: One or more of the following individualized dose reduction techniques were utilized for this examination: 1. Automated exposure control 2. Adjustment of the mA and/or kV according to patient size 3. Use of iterative reconstruction technique Electronically signed by: David Higuera III, MD (11/14/2018 7:37 PM) [facility]
--- NOTE | 2018-11-14 19:53 | PHYS DOC ---
Past Medical History Past Medical History: Hypertension, Migraines Additional Past Medical Histor: menigitis, anam mtn spotted fever, [place] Past Surgical History: Cholecystectomy, Other Additional Past Surgical Histo: lip and tongue Alcohol Use: Occasionally Drug Use: Marijuana Adult General Chief Complaint Chief Complaint: PAIN ON URINATION [facility] HPI Patient is a 43 year old male who presents with has been having bilateral flank pain and pelvic pain with burning with urination and urinary frequency since Thursday night. Patient states she's been taking Azo which is not helping. Patient states he feels like he cannot empty his bladder completely. Patient states he has chills but has never actually taken his temperature. Patient denies nausea, vomiting, diarrhea, chest pain, shortness of air, dizziness. Patient states yesterday urinary 3 times and one other time last night that he states that he felt like he fully emptied his bladder. Patient states he has not urinated today. Review of Systems Review of Systems Constitutional: Denies fever or chills [] Eyes: Denies change in visual acuity, redness, or eye pain [] HENT: Denies nasal congestion or sore throat [] Respiratory: Denies cough or shortness of breath [] Cardiovascular: No additional information not addressed in HPI [] GI: Lower abdominal pain with bilateral flank pain, denies nausea, vomiting, bloody stools or diarrhea [] : dysuria, urinary frequency. Denies hematuria [] Musculoskeletal: Denies back pain or joint pain [] Integument: Denies rash or skin lesions [] Neurologic: Denies headache, focal weakness or sensory changes [] All other systems were reviewed and found to be within normal limits, except as documented in this note. Current Medications Current Medications Current Medications Medications (Trade) Dose Ordered Sig/[facility] Start Time Stop Time Status Last Admin Dose Admin Fentanyl Citrate (Fentanyl 2ml Vial) 50 mcg 1X ONCE 11/14/18 20:00 11/14/18 20:01 DC Sodium Chloride 1,000 ml @ 1,000 mls/hr 1X ONCE 11/14/18 21:00 11/14/18 21:59 11/14/18 21:17 1,000 MLS/HR Allergies Allergies Allergies Coded Allergies Type Severity Reaction Last Updated Verified haloperidol Allergy Intermediate "lock jaw" 04/10/14 Yes hydromorphone Allergy Mild Itching 07/26/15 Yes oxycodone Allergy Mild Itching 07/26/15 Yes Physical Exam Physical Exam Constitutional: Well developed, well nourished, no acute distress, non-toxic appearance. [] HENT: Normocephalic, atraumatic, bilateral external ears normal, oropharynx moist, no oral exudates, nose normal. [] Eyes: PERRLA, EOMI, conjunctiva normal, no discharge. [] Neck: Normal range of motion, no tenderness, supple, no stridor. [] Cardiovascular:Heart rate regular rhythm, no murmur [] Lungs & Thorax: Bilateral breath sounds clear to auscultation [] Abdomen: Bowel sounds normal, soft, bilateral lower quadrant tenderness, no masses, no pulsatile masses. [] Skin: Warm, dry, no erythema, no rash. [] Back: No tenderness, bilateral CVA tenderness. [] Extremities: No tenderness, no cyanosis, no clubbing, ROM intact, no edema. [] Neurologic: Alert and oriented X 3, normal motor function, normal sensory function, no focal deficits noted. [] Psychologic: Affect normal, judgement normal, mood normal. [] Current Patient Data Vital Signs Vital Signs Date Time Temp Pulse Resp B/P (MAP) Pulse Ox O2 Delivery O2 Flow Rate FiO2 11/14/18 20:10 77 16 122/64 (83) 95 Room Air 11/14/18 19:00 98.2 98.2 Lab Values Laboratory Tests Test 11/14/18 19:49 11/14/18 20:36 White Blood Count 7.4 x10^3/uL (4.0-11.0) Red Blood Count 5.08 x10^6/uL (4.30-5.70) Hemoglobin 15.3 g/dL (13.0-17.5) Hematocrit 44.8 % (39.0-53.0) Mean Corpuscular Volume 88 fL (79-100) Mean Corpuscular Hemoglobin 30 pg (25-35) Mean Corpuscular Hemoglobin Concent 34 g/dL (31-37) Red Cell Distribution Width 14.1 % (11.5-14.5) Platelet Count 228 x10^3/uL (140-400) Neutrophils (%) (Auto) 58 % (31-73) Lymphocytes (%) (Auto) 22 % (24-48) L Monocytes (%) (Auto) 16 % (0-9) H Eosinophils (%) (Auto) 4 % (0-3) H Basophils (%) (Auto) 1 % (0-3) Neutrophils # (Auto) 4.3 x10^3uL (1.8-7.7) Lymphocytes # (Auto) 1.6 x10^3/uL (1.0-4.8) Monocytes # (Auto) 1.2 x10^3/uL (0.0-1.1) H Eosinophils # (Auto) 0.3 x10^3/uL (0.0-0.7) Basophils # (Auto) 0.1 x10^3/uL (0.0-0.2) Sodium Level 136 mmol/L (136-145) Potassium Level 4.2 mmol/L (3.5-5.1) Chloride Level 98 mmol/L (98-107) Carbon Dioxide Level 28 mmol/L (21-32) Anion Gap 10 (6-14) Blood Urea Nitrogen 18 mg/dL (8-26) Creatinine 1.8 mg/dL (0.7-1.3) H Estimated GFR (Cockcroft-Gault) 41.0 BUN/Creatinine Ratio 10 (6-20) Glucose Level 116 mg/dL (70-99) H Calcium Level 8.8 mg/dL (8.5-10.1) Total Bilirubin 0.3 mg/dL (0.2-1.0) Aspartate Amino Transferase (AST) 34 U/L (15-37) Alanine Aminotransferase (ALT) 60 U/L (16-63) Alkaline Phosphatase 152 U/L (46-116) H Total Protein 7.8 g/dL (6.4-8.2) Albumin 3.5 g/dL (3.4-5.0) Albumin/Globulin Ratio 0.8 (1.0-1.7) L Urine Collection Type Unknown Urine Color Red Urine Clarity Clear Urine pH Urine Specific [place] Urine Protein mg/dL (NEG-TRACE) Urine Glucose (UA) mg/dL (NEG) Urine Ketones (Stick) mg/dL (NEG) Urine Blood (NEG) Urine Nitrite (NEG) Urine Bilirubin (NEG) Urine Urobilinogen Dipstick mg/dL (0.2 mg/dL) Urine Leukocyte Esterase (NEG) Urine RBC 1-2 /HPF (0-2) Urine WBC 5-10 /HPF (0-4) Urine Squamous Epithelial Cells Few /LPF Urine Bacteria Few /HPF (0-FEW) Urine Hyaline Casts Many /HPF Urine Mucus Marked /LPF Laboratory Tests 11/14/18 19:49 Laboratory Tests 11/14/18 19:49 EKG EKG [] Radiology/Procedures Radiology/Procedures [] Impressions: [facility] [address] [place] [address] IMAGING REPORT Signed PATIENT: NORMA MEYER ACCOUNT: [id number] : 1975 LOCATION: ER AGE: 43 SEX: M EXAM STATUS: REG ER ORD. PHYSICIAN: EDWARDO RODRIGUEZ APRN REASON: urinary retention, PAIN IN AREA OF BLADDER. PROCEDURE: CT ABDOMEN PELVIS WO CONTRAST Abdominal and Pelvis CT, Without Contrast: History: Urinary retention and pain in the area of bladder Comparison: None. Procedure: Axial images are obtained of the abdomen and pelvis, without IV or oral contrast. CT Abdomen without Contrast: Findings: Evaluation of solid organs is limited without contrast. Evaluation of stomach and bowel is limited without oral contrast. Liver: The millimeter hypoattenuating lesion in the right lobe of liver posteriorly is small difficult to characterize but likely a cyst Spleen: Normal. Pancreas: Normal. Adrenal Glands: Normal. Kidneys: Normal. There is no free air or free fluid. There is no lymphadenopathy. Impression: Please see CT Pelvis without Contrast. End Impression. CT Pelvis without Contrast: Findings: The urinary bladder appears normal. There is no free fluid. There is no lymphadenopathy. There is no pericolonic inflammation identified. The appendix is normal. The left colon is collapsed, limiting its evaluation. Impression: No acute findings. End impression PQRS Compliance Statement: One or more of the following individualized dose reduction techniques were utilized for this examination: 1. Automated exposure control 2. Adjustment of the mA and/or kV according to patient size 3. Use of iterative reconstruction technique Electronically signed by: Lucrecia Bertrand III, MD (11/14/2018 7:37 PM) [facility] DICTATED and SIGNED BY: LUCRECIA BERTRAND III, MD DATE: 11/14/181936 Course & Med Decision Making Course & Med Decision Making Patient is a 43 year old male who presents with has been having bilateral flank pain and pelvic pain with burning with urination and urinary frequency since Thursday night. Patient states she's been taking Azo which is not helping. Patient states he feels like he cannot empty his bladder completely. Patient states he has chills but has never actually taken his temperature. Patient denies nausea, vomiting, diarrhea, chest pain, shortness of air, dizziness. Patient states yesterday urinary 3 times and one other time last night that he states that he felt like he fully emptied his bladder. Patient states he has not urinated today. Bilateral lower abdominal pain with palpation. Patient states he just feels fullness and pressure. Patient is rating his fullness and pressure 8 out of 10. Patient's bilateral CVA tenderness. Alert and oriented. Skin pink warm and dry. Mucous membranes are moist. Vital signs within normal limits. Afebrile. Ambulatory with a steady gait. Lungs are clear to auscultation in all lobes. Heart rate regular without murmur. No extremity swelling. Patient was able to give a very small urine specimen. Patient refusing fentanyl stating "it killed my mother". CT abdomen pelvis shows no acute findings. Patient had a very and amount of urine given for specimen. Patient had received 400 mL of normal saline before he was bladder scanned. Patient was bladder scanned he had 104mL of urine in his bladder. 2030: Patient urinated 175 mL. Lab work came back unremarkable. Patient has had 2 L of normal saline in the ED. Patient's urine analysis came back inconclusive. I will treat the patient for urinary tract infection. Patient to follow-up with his primary care by calling them tomorrow morning for follow-up care. Liat Disclaimer Liat Disclaimer This electronic medical record was generated, in whole or in part, using a voice recognition dictation system. Departure Departure Impression: Primary Impression: Urinary tract infection Disposition: HOME, SELF-CARE Condition: STABLE Referrals: NO PCP (PCP) Patient Instructions: Urinary Tract Infection Additional Instructions: Call your primary care doctor tomorrow morning. Take medications as prescribed. Drink plenty of water. Scripts Ibuprofen (IBUPROFEN) 600 Mg Tablet 600 MG PO PRN Q6HRS PRN for PAIN, #20 TAB Prov: EDWARDO RODRIGUEZ [employer] M 11/14/18 Phenazopyridine Hcl (PYRIDIUM) 100 Mg Tablet 100 MG PO TID for 7 Days, #21 TAB Prov: EDWARDO RODRIGUEZ APRN 11/14/18 Ciprofloxacin Hcl (CIPRO) 500 Mg Tablet 1 TAB PO BID for 10 Days, #20 TAB Prov: EDWARDO RODRIGUEZ APRN 11/14/18 Problem Qualifiers Primary Impression: Urinary tract infection Urinary tract infection type: site unspecified Hematuria presence: without hematuria Qualified Codes: N39.0 - Urinary tract infection, site not specified EDWARDO RODRIGUEZ APRN Nov 14, 2018 19:53
[2018-11-14] MEDS: fentaNYL PF VIAL 100 MCG/2 ML VIAL IV ONE ×2 (19:55→20:00)
[2018-11-14 19:58] LABS: BASO # 0.1 x10^3/uL (0.0-0.2); BASO % 1 % (0-3); EOS # 0.3 x10^3/uL (0.0-0.7); EOS % 4 % (0-3); HEMATOCRIT 44.8 % (39.0-53.0); HEMOGLOBIN 15.3 g/dL (13.0-17.5); LYMPH # 1.6 x10^3/uL (1.0-4.8); LYMPH % 22 % (24-48); MEAN CORPUSCULAR HEMOGLOBIN 30 pg (25-35); MEAN CORPUSCULAR HGB CONC 34 g/dL (31-37); MEAN CORPUSCULAR VOLUME 88 fL (79-100); MONO # 1.2 x10^3/uL (0.0-1.1); MONO % 16 % (0-9); NEUT # 4.3 x10^3uL (1.8-7.7); NEUT % 58 % (31-73); PLATELET COUNT 228 x10^3/uL (140-400); RED BLOOD COUNT 5.08 x10^6/uL (4.30-5.70); RED CELL DISTRIBUTION WIDTH 14.1 % (11.5-14.5); WHITE BLOOD COUNT 7.4 x10^3/uL (4.0-11.0)
[2018-11-14] MEDS ORDERED: fentaNYL PF VIAL 100 MCG/2 ML VIAL IV ONE (20:00)
[2018-11-14 20:10] LABS: CALCIUM 8.8 mg/dL (8.5-10.1); CREATININE 1.8 mg/dL (0.7-1.3); POTASSIUM 4.2 mmol/L (3.5-5.1)
[2018-11-14 20:17] LABS: ALBUMIN 3.5 g/dL (3.4-5.0); ALBUMIN/GLOBULIN RATIO 0.8 (1.0-1.7); TOTAL BILIRUBIN 0.3 mg/dL (0.2-1.0); TOTAL PROTEIN 7.8 g/dL (6.4-8.2)
[2018-11-14 20:48] LABS: CLARITY,URINE CLEAR; COLOR,URINE RED
[2018-11-14 21:05] LABS: BACTERIA,URINE FEW /HPF (0-FEW)
[2018-11-14 21:06] LABS: HYALINE CASTS, URINE MANY /HPF; SQUAMOUS EPITHELIAL CELL,UR FEW /LPF
[2018-11-14] MEDS ORDERED: CIPR500T94 PO (21:27)
[2018-11-14] MEDS ORDERED: IBUP-1007 PO (21:27)
[2018-11-14] MEDS ORDERED: PHEN100T82 PO (21:27)
[2018-11-14] MEDS ORDERED: KETOROLAC 30 MG/ML VIAL. IV ONE (21:30)
[2018-11-14 21:43] VITALS: BP 147/96
== END 2018-11-14 21:44 | disposition home or self-care (01) ==
LOC: ER 18:07
DX: N39.0 Urinary tract infection, site not specified (principal); I10 Essential (primary) hypertension; G43.909 Migraine, unspecified, not intractable, without status migrainosus; Z90.49 Acquired absence of other specified parts of digestive tract; Z88.5 Allergy status to narcotic agent; Z88.8 Allergy status to other drugs, medicaments and biological substances
CPT/HCPCS: 36415; 74176; 80053; 81001; 85025; 87086; 96374; 96375; 99284; J1885; J3010; J7030

== ENCOUNTER 2019-03-13 08:34 | Emergency (ER) | payer OTHER ==
[~2019-03-13] VITALS: Ht 182.9 cm; Wt 93.0 kg
[~2019-03-13 08:34] MED LIST changes: +CIPR500T94 PO; +IBUP-1007 PO; +PHEN100T82 PO
--- NOTE | 2019-03-13 09:05 | PHYS DOC ---
Past Medical History Past Medical History: Hypertension, Migraines Additional Past Medical Histor: menigitis, anam mtn spotted fever, [place] Past Surgical History: Cholecystectomy, Other Additional Past Surgical Histo: lip and tongue Alcohol Use: Occasionally Drug Use: Marijuana Social History Narrative: LAST USE YESTERDAY Adult General Chief Complaint Chief Complaint: HEADACHE HPI HPI 43-year-old male presents to ER via POV with his for complaints of 2 day history of headache. Patient states he has history of migraine headaches with this feeling similar to priors denying this being the worst he has experienced. Pt reports he's had intermittent nausea denies vomiting episodes. Patient denies any dizziness, vision change, or tinnitus. Patient has had sinus pressure and left side ear pressure. Pt denies sinus drainage, fever, nuchal rigidity, or sore throat/swelling. Patient denies any recent falls or injury. Patient denies taking any [id number] medications for pain today. He reports over the past couple of days he has used [id number] Tylenol headache medication with minimal relief in symptoms. Pt denies chest pain, palpitations, shortness of air, or abdominal pain. Review of Systems Review of Systems Constitutional: Denies fever or chills [] Eyes: Denies change in visual acuity, redness- reports bilat. eye pain/photosensitivity HENT: Denies sore throat. Reports sinus pressure and lt ear pressure Respiratory: Denies cough or shortness of breath [] Cardiovascular: Denies CP/palpitations GI: Denies abdominal pain, vomiting, bloody stools or diarrhea. Reports intermittent nausea : Denies urinary sxs Musculoskeletal: Denies back/neck pain or joint pain [] Integument: Denies rash or skin lesions [] Neurologic: Denies focal weakness or sensory changes. Reports frontal ENGLISH/pressure denies dizziness Endocrine: Denies polyuria or polydipsia [] All other systems were reviewed and found to be within normal limits, except as documented in this note. Current Medications Current Medications Current Medications Medications (Trade) Dose Ordered Sig/[facility] Start Time Stop Time Status Last Admin Dose Admin Diphenhydramine HCl (Benadryl) 25 mg 1X ONCE 03/13/19 09:15 03/13/19 09:16 DC 03/13/19 09:31 25 MG Ketorolac Tromethamine (Toradol 15mg Vial) 15 mg 1X ONCE 03/13/19 09:15 03/13/19 09:16 DC 03/13/19 09:30 15 MG Metoclopramide HCl (Reglan Vial) 10 mg 1X ONCE 03/13/19 09:15 03/13/19 09:16 DC 03/13/19 09:32 10 MG Sodium Chloride 1,000 ml @ 1,000 mls/hr 1X ONCE 03/13/19 09:15 03/13/19 10:14 DC 03/13/19 09:29 1,000 MLS/HR Allergies Allergies Allergies Coded Allergies Type Severity Reaction Last Updated Verified haloperidol Allergy Intermediate "lock jaw" 04/10/14 Yes hydromorphone Allergy Mild Itching 07/26/15 Yes oxycodone Allergy Mild Itching 07/26/15 Yes Physical Exam Physical Exam Constitutional: Well developed, well nourished, no acute distress, non-toxic appearance. Clear speech HENT: Normocephalic, atraumatic, bilateral mild erythema at TM without bulging/perforation/drainage, mucous membranes pink/dry, no oral exudates, nose normal. Frontal/maxillary tenderness without facial swelling Eyes: 3mm PERRLA, EOMI- no pain with eye movements, no nystagmus, conjunctiva normal, no discharge. [] Neck: Normal range of motion, no tenderness/nuchal rigidity, supple, no stridor. [] Cardiovascular:Heart rate regular rhythm, no murmur [] Lungs & Thorax: Bilateral breath sounds clear to auscultation- resp. equal/nonlabored Abdomen: Bowel sounds normal, soft, no tenderness, no masses, no pulsatile masses. [] Skin: Warm, dry, no erythema, no rash. [] Back: No tenderness, no CVA tenderness. [] Extremities: No tenderness, no cyanosis, no clubbing, ROM intact, no edema. [] Neurologic: Alert and oriented X 3, normal motor function, normal sensory function, no focal deficits noted. [] Psychologic: Affect normal, judgement normal, mood normal. [] Current Patient Data Vital Signs Vital Signs Date Time Temp Pulse Resp B/P (MAP) Pulse Ox O2 Delivery O2 Flow Rate FiO2 03/13/19 10:00 46 100 03/13/19 08:43 98.1 16 161/101 (121) Room Air 98.1 EKG EKG [] Radiology/Procedures Radiology/Procedures [] Course & Med Decision Making Course & Med Decision Making 0950: Patient was evaluated in the ER for complaints of headache with history of migraines. Patient reports this feels similar to prior headaches denying this be ing the worst he has experienced. Patient denies any type of injury. Pt was treated with IV fluids/meds without imaging or labs as patient felt comfortable with just treatment. At this time patient states his headache has improved and is comfortable with being discharged home. Patient's states he has an appointment with his primary care physician on 03/21. Since BP has been elevated with history of hypertension. reports patient's amlodipine prescription is at the pharmacy and they plan to pick it up when they leave. On recheck blood pressure is 157/95 with heart rate 54. Patient is denying any vision changes, dizziness, with reports headache much improved. Patient remains A&Ox3 without focal weakness/deficits. With improved symptoms patient will be discharged home and was advised that he should discuss recurring headaches with his primary care physician and discuss options for home medications for treatments. Education provided on signs and symptoms to return to ER. Discharge instructions were discussed. Patient to follow-up with primary care physician if symptoms persist or with any concerns. Dragon Disclaimer Dragon Disclaimer This electronic medical record was generated, in whole or in part, using a voice recognition dictation system. Departure Departure Impression: Primary Impression: Headache Disposition: 01 HOME, SELF-CARE Condition: STABLE Referrals: UNKNOWN PCP NAME (PCP) Patient Instructions: Recurrent Migraine Headache Additional Instructions: Drink plenty of water daily. Avoid smoking. Tylenol and/or ibuprofen as needed for pain as directed on container. As discussed her blood pressure was elevated while in the ER you need to get your prescription for your amlodipine and take your dose for last night. And then continue prescription as directed. Keep your scheduled appointment with your primary care physician and discuss reoccurring headaches and possible options for home treatments. DIONY SHAW APRN Mar 13, 2019 09:05
[2019-03-13] MEDS ORDERED: IV NORMAL SALINE 1000ML BAG 1,000 ML IV ONE (09:15)
[2019-03-13] MEDS ORDERED: METOCLOPRAMIDE HCL 10 MG/2 ML VIAL. IV ONE (09:15)
[2019-03-13] MEDS ORDERED: KETOROLAC 15 MG/ML VIAL. IV ONE (09:15)
[2019-03-13] MEDS ORDERED: diphenhydrAMINE 50 MG/ML VIAL IVP ONE (09:15)
[2019-03-13 10:00] VITALS: BP 157/95
== END 2019-03-13 10:22 | disposition home or self-care (01) ==
LOC: ER 08:34
DX: G43.909 Migraine, unspecified, not intractable, without status migrainosus (principal); I10 Essential (primary) hypertension; Z88.5 Allergy status to narcotic agent; Z88.8 Allergy status to other drugs, medicaments and biological substances
CPT/HCPCS: 96374; 96375; 99284; J1200; J1885; J2765; J7030

== ENCOUNTER 2019-04-30 19:59 | Emergency (ER) | payer OTHER ==
[~2019-04-30] VITALS: Ht 185.4 cm; Wt 93.4 kg
[~2019-04-30 19:59] MED LIST changes: +LISI1TAB19 PO; -LISI1TAB5 PO
[2019-04-30 20:58] VITALS: BP 157/95
[2019-04-30] MEDS ORDERED: fentaNYL PF VIAL 100 MCG/2 ML VIAL IM ONE (21:45)
[2019-04-30] MEDS ORDERED: HYDROcodone/APAP 5/325MG 1 TAB TABLET PO ONE (22:45)
[2019-04-30] MEDS ORDERED: HYDROcodone/APAP 5/325MG 1 TAB TABLET ONE (22:47)
--- NOTE | 2019-04-30 22:54 | PHYS DOC ---
Past Medical History Past Medical History: Hypertension, Migraines Additional Past Medical Histor: menigitis, anam mtn spotted fever, [place] Past Surgical History: Cholecystectomy, Other Additional Past Surgical Histo: lip and tongue Alcohol Use: Occasionally Drug Use: Marijuana Adult General Chief Complaint Chief Complaint: ANKLE PROBLEM HPI HPI Patient is a 43 year old [male who presents with [left ankle pain. States he had been sitting on the bed, when the bed frame broke, and he caught himself landing on his left foot, inverting his left ankle. States it occurred approximately half an hour prior to coming to the hospital, states pain has been worsening, with swelling worsening as well. States he has continued to have some discomfort. States he has not been able to walk very well, has limited a little walk on his toes. States he has not taken any medications for this. States he has not injured this leg in the past] Review of Systems Review of Systems Constitutional: Denies fever or chills [] Respiratory: Denies cough or shortness of breath [] Cardiovascular: No additional information not addressed in HPI [] Musculoskeletal: Denies back pain or joint pain other than to left ankle[] Integument: Denies rash or skin lesions [] Neurologic: Denies headache, focal weakness or sensory changes [] Endocrine: Denies polyuria or polydipsia [] All other systems were reviewed and found to be within normal limits, except as documented in this note. Current Medications Current Medications Current Medications Medications (Trade) Dose Ordered Sig/[facility] Start Time Stop Time Status Last Admin Dose Admin Acetaminophen/ Hydrocodone Bitart (Lortab 5/325) 1 tab STK-MED ONCE 04/30/19 22:47 04/30/19 22:48 DC Fentanyl Citrate (Fentanyl 2ml Vial) 50 mcg 1X ONCE 04/30/19 21:45 04/30/19 21:46 DC Allergies Allergies Allergies Coded Allergies Type Severity Reaction Last Updated Verified haloperidol Allergy Intermediate "lock jaw" 04/10/14 Yes morphine Allergy Intermediate 04/30/19 Yes hydromorphone Allergy Mild Itching 07/26/15 Yes oxycodone Allergy Mild Itching 07/26/15 Yes Physical Exam Physical Exam Constitutional: Well developed, well nourished, no acute distress, non-toxic a ppearance. [] Skin: Warm, dry, no erythema, no rash. Abrasion noted to lateral aspect of the malleolus left leg[] capillary refill brisk, sensation intact, skin warm Back: No tenderness, no CVA tenderness. [] Extremities: Tenderness on palpation over left ankle, decreased ROM due to discomfort.[] Swelling noted over the medial aspect Neurologic: Alert and oriented X 3, normal motor function, normal sensory function, no focal deficits noted. [] Psychologic: Affect normal, judgement normal, mood normal. [] Current Patient Data Vital Signs Vital Signs Date Time Temp Pulse Resp B/P (MAP) Pulse Ox O2 Delivery O2 Flow Rate FiO2 04/30/19 22:49 19 98 Room Air 04/30/19 20:58 98.5 79 157/95 (115) 98.5 EKG EKG [] Radiology/Procedures Radiology/Procedures left ankle x ray without noted fracture or acute changes. per dr Pak @ 1993[] Course & Med Decision Making Course & Med Decision Making Pertinent Labs and Imaging studies reviewed. (See chart for details) offer patient pain medications and start, consider fentanyl for discomfort due to his allergy list. Patient states he does not want fentanyl as he has a family member who had a reaction to it. Discussed additional pain medication options with patient, with hydrocodone and naproxen. States he has not had hydrocodone for severe he is willing to try at this time. Does state he does not think Toradol over, states he normally gets Toradol for his headaches [Reviewed imaging with patient, without noted fracture deformities. Discussed use of ankle splint, discussed use of crutches, follow-up with orthopedics. patient requests pain medications until he can get into ortho. Will Rx for 3 day norco. ] Dragon Disclaimer Dragon Disclaimer This electronic medical record was generated, in whole or in part, using a voice recognition dictation system. Departure Departure Impression: Primary Impression: Left ankle sprain Additional Impression: Left ankle swelling Disposition: HOME, SELF-CARE Condition: GOOD Referrals: UNKNOWN PCP NAME (PCP) ARLEEN JC II, MD Patient Instructions: Ankle Sprain Additional Instructions: Continued use ice, Tylenol, ibuprofen for your discomfort. Continue to wear the splint when you are walking around, and use crutches as well. Follow-up with orthopedics clinic, given them a call on Thursday Scripts Hydrocodone/Apap 5-325 (NORCO 5-325 TABLET) 1 Each Tablet 1 TAB PO PRN Q4-6HRS PRN for PAIN for 3 Days, #15 TAB 0 Refills Prov: DIANN DOLAN APRN 04/30/19 Problem Qualifiers Primary Impression: Left ankle sprain Encounter type: initial encounter Involved ligament of ankle: unspecified ligament Qualified Codes: S93.402A - Sprain of unspecified ligament of left ankle, initial encounter DIANN DOLAN APRN Apr 30, 2019 22:54
[2019-04-30] MEDS ORDERED: HYDR-3164 PO (23:01)
--- NOTE | 2019-04-30 23:27 | RAD ---
Exam: Left ankle 3 views INDICATION: Swelling, pain TECHNIQUE: Frontal, lateral and oblique views of the left ankle Comparisons: None FINDINGS: Bone mineralization is normal. No acute or healed fractures. Soft tissues are unremarkable. Joint spaces are well-maintained. IMPRESSION: No acute osseous abnormality. Electronically signed by: Afshan Chang MD (04/30/2019 11:24 PM) [facility]
== END 2019-04-30 23:15 | disposition home or self-care (01) ==
LOC: ER 19:59
DX: S93.492A Sprain of other ligament of left ankle, initial encounter (principal); I10 Essential (primary) hypertension; G43.909 Migraine, unspecified, not intractable, without status migrainosus; Z90.49 Acquired absence of other specified parts of digestive tract; Z88.5 Allergy status to narcotic agent; Z88.8 Allergy status to other drugs, medicaments and biological substances; W20.8XXA Other cause of strike by thrown, projected or falling object, initial encounter; Y93.89 Activity, other specified; Y92.89 Other specified places as the place of occurrence of the external cause; Y99.8 Other external cause status
CPT/HCPCS: 73610; 99284; L4350

== ENCOUNTER 2019-05-13 22:32 | Emergency (ER) | payer OTHER ==
[~2019-05-13] VITALS: Ht 182.9 cm; Wt 94.3 kg
[~2019-05-13 22:32] MED LIST changes: +HYDR-3164 PO
[2019-05-13 22:54] VITALS: BP 156/100
[2019-05-13] MEDS ORDERED: HYDR-2761 PO (23:11)
--- NOTE | 2019-05-13 23:12 | PHYS DOC ---
Past Medical History Past Medical History: Hypertension, Migraines Additional Past Medical Histor: menigitis, anam mtn spotted fever, [place] Past Surgical History: Cholecystectomy, Other Additional Past Surgical Histo: lip and tongue Alcohol Use: Occasionally Drug Use: Marijuana Adult General Chief Complaint Chief Complaint: DENTAL PROBLEM HPI HPI Patient is a 43 year old male who presents with dental pain for the last week. Patient states he has a dentist appointment on Thursday. Patient denies any fevers, nausea, vomiting, body aches, facial swelling. Patient states the pain is radiating up to his jaw and into his ear. Review of Systems Review of Systems Constitutional: Denies fever or chills [] HENT: Denies nasal congestion or sore throat. Dental caries. [] All other systems were reviewed and found to be within normal limits, except as documented in this note. Allergies Allergies Allergies Coded Allergies Type Severity Reaction Last Updated Verified haloperidol Allergy Intermediate "lock jaw" 04/10/14 Yes morphine Allergy Intermediate 04/30/19 Yes hydromorphone Allergy Mild Itching 07/26/15 Yes oxycodone Allergy Mild Itching 07/26/15 Yes Physical Exam Physical Exam Constitutional: Well developed, well nourished, no acute distress, non-toxic appearance. [] HENT: Normocephalic, atraumatic, bilateral external ears normal, oropharynx moist, no oral exudates, nose normal. Left lower tooth broken with dental caries. [] Neurologic: Alert and oriented X 3, normal motor function, normal sensory function, no focal deficits noted. [] Psychologic: Affect normal, judgement normal, mood normal. [] EKG EKG [] Radiology/Procedures Radiology/Procedures [] Course & Med Decision Making Course & Med Decision Making Patient is a 43 year old male who presents with dental pain for the last week. Patient states he has a dentist appointment on Thursday. Patient denies any fevers, nausea, vomiting, body aches, facial swelling. Patient states the pain i s radiating up to his jaw and into his ear. He has a left lower tooth that is broken in half and has a dental caries. Gum line is non-tender to palpation and is slightly reddened. There is no facial swelling. Afebrile. Patient to follow-up with dentist on Thursday as scheduled. Patient has many allergies to pain medications and I asked him if he has taken hydrocodone before and if he can take it. Patient states yes he can take hydrocodone without a allergic reaction. Dragon Disclaimer Dragon Disclaimer This electronic medical record was generated, in whole or in part, using a voice recognition dictation system. Departure Departure Impression: Primary Impression: Dental caries Disposition: HOME, SELF-CARE Condition: STABLE Referrals: UNKNOWN PCP NAME (PCP) Patient Instructions: Dental Caries Additional Instructions: Follow up with Dentist on Thursday as planned. Scripts Hydrocodone Bit/Acetaminophen (HYDROCODONE-APAP 5-325 ) 1 Tab Tablet 1 TAB PO PRN Q6HRS PRN for PAIN, #10 TAB 0 Refills Prov: EDWARDO RODRIGUEZ APRN 05/13/19 EDWARDO RODRIGUEZ APRN May 13, 2019 23:12
== END 2019-05-13 23:12 | disposition home or self-care (01) ==
LOC: ER 22:32
DX: K02.9 Dental caries, unspecified (principal); K08.89 Other specified disorders of teeth and supporting structures; I10 Essential (primary) hypertension; G43.909 Migraine, unspecified, not intractable, without status migrainosus; Z88.5 Allergy status to narcotic agent; Z88.8 Allergy status to other drugs, medicaments and biological substances
CPT/HCPCS: 99283

== ENCOUNTER 2019-06-17 01:24 | Emergency (ER) | payer OTHER ==
[~2019-06-17] VITALS: Ht 182.9 cm; Wt 94.3 kg
[~2019-06-17 01:24] MED LIST changes: +HYDR-2761 PO
[2019-06-17 02:02] VITALS: BP 184/137
[2019-06-17] MEDS ORDERED: Percogesic PO (02:29)
[2019-06-17] MEDS ORDERED: PENI500T PO (02:29)
[2019-06-17] MEDS ORDERED: PENICILLIN V K 250 MG TABLET. PO ONE (02:30)
[2019-06-17] MEDS ORDERED: KETOROLAC 60 MG/2 ML VIAL. IM ONE (02:30)
--- NOTE | 2019-06-17 02:30 | PHYS DOC ---
Past Medical History Past Medical History: Hypertension, Migraines Additional Past Medical Histor: menigitis, anam mtn spotted fever, [place] Past Surgical History: Cholecystectomy, Other Additional Past Surgical Histo: lip and tongue Alcohol Use: Occasionally Drug Use: Marijuana Adult General Chief Complaint Chief Complaint: DENTAL PROBLEM HPI HPI Patient is a 43 year old male who presents with complaining of tooth pain. Patient complaining of sudden onset of right upper jaw and tooth pain for 3 hours prior to arrival to ER as a sharp pain and rated his pain 10 over 10. Patient states the pain radiated to his right ear. Patient denies nausea and vomiting, fever and chills, this fascia. Not take kfil-yyr-pamgqdm pain medication. Patient was seen in this emergency room last month with complaining of left jaw and tooth pain and stated he had hydrocodone at that time that worked well for him. He is a smoker. Review of Systems Review of Systems Constitutional: Denies fever or chills [] Eyes: Denies change in visual acuity, redness, or eye pain [] HENT: Denies nasal congestion or sore throat [] Respiratory: Denies cough or shortness of breath [] Cardiovascular: No additional information not addressed in HPI [] GI: Denies abdominal pain, nausea, vomiting, bloody stools or diarrhea [] : Denies dysuria or hematuria [] Musculoskeletal: Denies back pain or joint pain [] Integument: Denies rash or skin lesions [] Neurologic: Denies headache, focal weakness or sensory changes [] Endocrine: Denies polyuria or polydipsia [] All other systems were reviewed and found to be within normal limits, except as documented in this note. Current Medications Current Medications Current Medications Medications (Trade) Dose Ordered Sig/Asmita Start Time Stop Time Status Last Admin Dose Admin Ketorolac Tromethamine (Toradol Im) 60 mg 1X ONCE 06/17/19 02:30 06/17/19 02:31 Penicillin V Potassium (Veetid) 500 mg 1X ONCE 06/17/19 02:30 06/17/19 02:31 Allergies Allergies Allergies Coded Allergies Type Severity Reaction Last Updated Verified haloperidol Allergy Intermediate "lock jaw" 04/10/14 Yes morphine Allergy Intermediate 04/30/19 Yes hydromorphone Allergy Mild Itching 07/26/15 Yes oxycodone Allergy Mild Itching 07/26/15 Yes Physical Exam Physical Exam Constitutional: Well nourished, mild distress, non-toxic appearance. [] HENT: Normocephalic, atraumatic, moist oral mucosa, dental cavity tooth #2 without abscess Eyes: PERRLA, EOMI, conjunctiva normal, no discharge. [] Neck: Normal range of motion, no tenderness, supple, no stridor. [] Cardiovascular:Heart rate regular rhythm, no murmur [] Lungs & Thorax: Bilateral breath sounds clear to auscultation [] Neurologic: Alert and oriented X 3, no focal deficits noted. [] Psychologic: Affect anxious, judgement normal, mood normal. [] Current Patient Data Vital Signs Vital Signs Date Time Temp Pulse Resp B/P (MAP) Pulse Ox O2 Delivery O2 Flow Rate FiO2 06/17/19 02:02 98.1 90 18 184/137 (153) 97 Room Air 98.1 EKG EKG [] Radiology/Procedures Radiology/Procedures [] Course & Med Decision Making Course & Med Decision Making Evaluation of patient in ER showed 43-year-old male patient with complaining of dental pain and rated his pain 10 over 10 but didn't take any ldzd-btz-zoceryb pain medication since his pain started a few hours ago. Patient asking for hydrocodone. Patient was advised to quit smoking and follow up with the dentist. Patient treated with Toradol IM and Pen V K in ER. Dragon Disclaimer Dragon Disclaimer This electronic medical record was generated, in whole or in part, using a voice recognition dictation system. Departure Departure Impression: Primary Impression: Dentalgia Disposition: HOME, SELF-CARE (at 0226) Condition: STABLE Referrals: UNKNOWN PCP NAME (PCP) Patient Instructions: Dental Pain Additional Instructions: Quit smoking Follow-up with your dentist in 2 or 3 days Return to ER if not getting better Scripts Penicillin V Potassium (PENICILLIN V POTASSIUM) 500 Mg Tablet 2 TAB PO Q12HR, #28 TAB Prov: BEN BEE MD 06/17/19 [Percogesic] No Conflict Check 1 TAB PO QID PRN for PAIN, #14 % Prov: BEN BEE MD 06/17/19 BEN BEE MD Jun 17, 2019 02:29
== END 2019-06-17 02:40 | disposition home or self-care (01) ==
LOC: ER 01:24
DX: K08.89 Other specified disorders of teeth and supporting structures (principal); I10 Essential (primary) hypertension; G43.909 Migraine, unspecified, not intractable, without status migrainosus; Z90.49 Acquired absence of other specified parts of digestive tract; Z88.5 Allergy status to narcotic agent; Z88.8 Allergy status to other drugs, medicaments and biological substances
CPT/HCPCS: 96372; 99283; J1885

== ENCOUNTER 2019-07-14 20:03 | Emergency (ER) | payer OTHER ==
[~2019-07-14] VITALS: Ht 182.9 cm; Wt 102.1 kg
[~2019-07-14 20:03] MED LIST changes: +PENI500T PO; +Percogesic PO
[2019-07-14 20:17] VITALS: BP 185/121
[2019-07-14] MEDS ORDERED: HYDR-3164 PO (20:25)
--- NOTE | 2019-07-14 20:26 | PHYS DOC ---
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 Patient states he can not get into a dentist until August when he gets insurance. Nurse has given him a resource for emergency dentist and dental clinics where there is no insurance needed. (EDWARDO RODRIUGEZ REMOTE BROADCAST ENGINEER) Review of Systems Review of Systems HENT: Denies nasal congestion or sore throat. Dental caries. [] All other systems were reviewed and found to be within normal limits, except as documented in this note. (EDWARDO RODRIGUEZ APRN) Current Medications Current Medications Current Medications Medications (Trade) Dose Ordered Sig/Asmita Start Time Stop Time Status Last Admin Dose Admin Bupivacaine HCl (Sensorcaine-Mpf 0.25%) 10 ml 1X ONCE 07/14/19 20:30 07/14/19 20:31 DC 07/14/19 20:30 10 ML (DELIA FRANKS MD) Allergies Allergies Allergies Coded Allergies Type Severity Reaction Last Updated Verified haloperidol Allergy Intermediate "lock jaw" 04/10/14 Yes morphine Allergy Intermediate 04/30/19 Yes hydromorphone Allergy Mild Itching 07/26/15 Yes oxycodone Allergy Mild Itching 07/26/15 Yes (DELIA FRANKS MD) Physical Exam Physical Exam Constitutional: Well developed, well nourished, no acute distress, non-toxic appearance. [] HENT: Normocephalic, atraumatic, bilateral external ears normal, oropharynx moist, no oral exudates, nose normal. [] Eyes: PERRLA, EOMI, conjunctiva normal, no discharge. [] Neck: Normal range of motion, no tenderness, supple, no stridor. [] Cardiovascular:Heart rate regular rhythm, no murmur [] Lungs & Thorax: Bilateral breath sounds clear to auscultation [] Abdomen: Bowel sounds normal, soft, no tenderness, no masses, no pulsatile masses. [] Skin: Warm, dry, no erythema, no rash. [] Back: No tenderness, no CVA tenderness. [] Extremities: No tenderness, no cyanosis, no clubbing, ROM intact, no edema. [] Neurologic: Alert and oriented X 3, normal motor function, normal sensory function, no focal deficits noted. [] Psychologic: Affect normal, judgement normal, mood normal. [] (EDWARDO RODRIGUEZ APRN) Current Patient Data Vital Signs Vital Signs Date Time Temp Pulse Resp B/P (MAP) Pulse Ox O2 Delivery O2 Flow Rate FiO2 07/14/19 20:17 98.5 94 16 185/121 (142) 99 Room Air 98.5 (DELIA FRANKS MD) EKG EKG [] (EDWARDO RODRIGUEZ APRN) Radiology/Procedures Radiology/Procedures [] (EDWARDO RODRIGUEZ APRN) Course & Med Decision Making Course & Med Decision Making Rate pain a 10. No gumline redness, tenderness or facial swelling. No fevers, nausea, vomiting. Patient states he thinks he broke the tooth and that why the pain began again. Patient has several right upper back dental caries. Patient states he has taken 3 Perogesics today and it has not touched his pain. Patient agrees to a dental block. Patient is hypertensive but states he is in pain and he has not yet took her blood pressure medication today. Patient states Hydrocodones are the only thing that touch his pain. Dental block performed on patient with 2ml of 0.25% Bupivacaine injected for superior aveolar nerve block placed in buckle mucosa. Dr Franks in the room with RY. (EDWARDO RODRIGUEZ APRN) Dragon Disclaimer Dragon Disclaimer This electronic medical record was generated, in whole or in part, using a voice recognition dictation system. (EDWARDO RODRIGUEZ APRN) Attending Signature I have participated in the care of this patient and I have reviewed and agree with all pertinent clinical information above including history, exam, and recommendations. (DELIA FRANKS MD) Departure Departure Impression: Primary Impression: Dental caries Additional Impression: Dentalgia Disposition: 01 HOME, SELF-CARE Condition: STABLE Referrals: UNKNOWN PCP NAME (PCP) Patient Instructions: Dental Caries, Dental Pain, Konu-in-Fxao Additional Instructions: Follow up with a dentist at a clinic as soon as possible. Scripts Hydrocodone/Apap 5-325 (NORCO 5-325 TABLET) 1 Each Tablet 1 TAB PO PRN Q6HRS PRN for PAIN, #6 TAB 0 Refills Prov: EDWARDO RODRIGUEZ APRN 07/14/19 Problem Qualifiers EDWARDO RODRIGUEZ APRN Jul 14, 2019 20:26 DELIA FRANKS MD Jul 15, 2019 17:28
[2019-07-14] MEDS ORDERED: BUPIVACAINE MPF 0.25% 10 ML VIAL. IJ ONE (20:30)
== END 2019-07-14 21:26 | disposition home or self-care (01) ==
LOC: ER 20:03
DX: K02.9 Dental caries, unspecified (principal); I10 Essential (primary) hypertension; G43.909 Migraine, unspecified, not intractable, without status migrainosus; Z88.8 Allergy status to other drugs, medicaments and biological substances; Z88.5 Allergy status to narcotic agent
CPT/HCPCS: 64400; 99284; J3490

== ENCOUNTER 2019-10-05 12:39 | Emergency (ER) | payer BC, OTHER ==
[~2019-10-05] VITALS: Ht 172.7 cm; Wt 70.0 kg
[2019-10-05 13:00] VITALS: BP_DIAS 89
[2019-10-05] MEDS: KETOROLAC 30 MG/ML VIAL. IVP ONE (14:00)
[2019-10-05 14:29] LABS: CALCIUM 9.3 mg/dL (8.5-10.1); CREATININE 2.1 mg/dL (0.7-1.3); GFR 34.2; POTASSIUM 3.6 mmol/L (3.5-5.1)
--- NOTE | 2019-10-05 14:30 | RAD ---
CHEST PA LATERAL History: Chest pain Comparison: None. Findings: Frontal and lateral views of the chest were obtained. The cardiomediastinal silhouette is normal. Pulmonary vasculature is normal. The lungs are clear. No pleural effusion or pneumothorax is seen. There is no acute bone abnormality. IMPRESSION: No acute cardiopulmonary process. Electronically signed by: Ti Cedeno MD (10/05/2019 2:27 PM) [id number]
[2019-10-05 14:31] LABS: BASO # 0.1 x10^3/uL (0.0-0.2); BASO % 1 % (0-3); EOS # 0.1 x10^3/uL (0.0-0.7); EOS % 1 % (0-3); HEMATOCRIT 43.4 % (39.0-53.0); HEMOGLOBIN 14.9 g/dL (13.0-17.5); LYMPH # 2.1 x10^3/uL (1.0-4.8); LYMPH % 15 % (24-48); MEAN CORPUSCULAR HEMOGLOBIN 30 pg (25-35); MEAN CORPUSCULAR HGB CONC 34 g/dL (31-37); MEAN CORPUSCULAR VOLUME 89 fL (79-100); MONO # 1.1 x10^3/uL (0.0-1.1); MONO % 8 % (0-9); NEUT # 10.5 x10^3/uL (1.8-7.7); NEUT % 76 % (31-73); PLATELET COUNT 278 x10^3/uL (140-400); RED BLOOD COUNT 4.89 x10^6/uL (4.30-5.70); RED CELL DISTRIBUTION WIDTH 13.9 % (11.5-14.5); WHITE BLOOD COUNT 13.9 x10^3/uL (4.0-11.0)
[2019-10-05 14:35] LABS: ALBUMIN 4.1 g/dL (3.4-5.0); ALBUMIN/GLOBULIN RATIO 1.2 (1.0-1.7); MAGNESIUM 1.8 mg/dL (1.8-2.4); TOTAL BILIRUBIN 0.7 mg/dL (0.2-1.0); TOTAL PROTEIN 7.5 g/dL (6.4-8.2)
[2019-10-05 14:55] VITALS: BP_SYST 75
[2019-10-05] MEDS ORDERED: CYCL10TA2 PO (15:12)
--- NOTE | 2019-10-05 15:12 | PHYS DOC ---
Past Medical History Past Medical History: Hypertension, Migraines Additional Past Medical Histor: menigitis, anam mtn spotted fever, [place] Past Surgical History: Cholecystectomy, Other Additional Past Surgical Histo: lip and tongue Smoking Status: Current Every Day Smoker Alcohol Use: Occasionally Drug Use: Marijuana Adult General Chief Complaint Chief Complaint: CHEST PAIN HPI HPI Patient is a 44 year old with history of hypertension, migraine headache, meningitis, anam mtn spotted fever, [place] who presents with complaint of chest pain. Patient complaining of intermittent episodes of substernal sharp pain with radiation to his back for the last couple of hours that usually lasts about a few seconds and repeated every 10 minutes. Patient complaining of shortness of breath and dizziness without nausea, palpitation, paresthesia, fev er and chills, focal neuro deficit. Patient rated his pain 5/10. Patient complaining of chronic smoker cough. Review of Systems Review of Systems Constitutional: Denies fever or chills [] Eyes: Denies change in visual acuity, redness, or eye pain [] HENT: Denies nasal congestion or sore throat [] Respiratory: Denies cough, reports shortness of breath [] Cardiovascular: No additional information not addressed in HPI [] GI: Denies abdominal pain, nausea, vomiting, bloody stools or diarrhea [] : Denies dysuria or hematuria [] Musculoskeletal: Denies back pain or joint pain [] Integument: Denies rash or skin lesions [] Neurologic: Denies headache, focal weakness or sensory changes [] Endocrine: Denies polyuria or polydipsia [] All other systems were reviewed and found to be within normal limits, except as documented in this note. Current Medications Current Medications Current Medications Medications (Trade) Dose Ordered Sig/Asmita Start Time Stop Time Status Last Admin Dose Admin Ketorolac Tromethamine (Toradol 30mg Vial) 30 mg 1X ONCE 10/05/19 14:00 10/05/19 14:01 DC 10/05/19 14:00 30 MG Allergies Allergies Allergies Coded Allergies Type Severity Reaction Last Updated Verified haloperidol Allergy Intermediate "lock jaw" 04/10/14 Yes morphine Allergy Intermediate 04/30/19 Yes hydromorphone Allergy Mild Itching 07/26/15 Yes oxycodone Allergy Mild Itching 07/26/15 Yes Physical Exam Physical Exam Constitutional: Well developed, well nourished, mild distress, non-toxic appearance. [] HENT: Normocephalic, atraumatic. Eyes: PERRLA, EOMI, conjunctiva normal, no discharge. [] Neck: Normal range of motion, no tenderness, supple, no stridor. [] Cardiovascular:Heart rate regular rhythm, no murmur [] Lungs & Thorax: Bilateral breath sounds clear to auscultation , reproducible substernal pain and imaging EKG for some reason[] Abdomen: Bowel sounds normal, soft, no tenderness, no masses, no pulsatile masses. [] Skin: Warm, dry, no erythema, no rash. [] Back: No tenderness, no CVA tenderness. [] Extremities: No tenderness, no cyanosis, no clubbing, ROM intact, no edema. [] Neurologic: Alert and oriented X 3, no focal deficits noted. [] Psychologic: Affect normal, judgement normal, mood normal. [] Current Patient Data Vital Signs Vital Signs Date Time Temp Pulse Resp B/P (MAP) Pulse Ox O2 Delivery O2 Flow Rate FiO2 10/05/19 13:00 98.1 87 18 123/89 (100) 96 Room Air 98.1 Lab Values Laboratory Tests Test 10/05/19 13:45 White Blood Count 13.9 x10^3/uL (4.0-11.0) H Red Blood Count 4.89 x10^6/uL (4.30-5.70) Hemoglobin 14.9 g/dL (13.0-17.5) Hematocrit 43.4 % (39.0-53.0) Mean Corpuscular Volume 89 fL (79-100) Mean Corpuscular Hemoglobin 30 pg (25-35) Mean Corpuscular Hemoglobin Concent 34 g/dL (31-37) Red Cell Distribution Width 13.9 % (11.5-14.5) Platelet Count 278 x10^3/uL (140-400) Neutrophils (%) (Auto) 76 % (31-73) H Lymphocytes (%) (Auto) 15 % (24-48) L Monocytes (%) (Auto) 8 % (0-9) Eosinophils (%) (Auto) 1 % (0-3) Basophils (%) (Auto) 1 % (0-3) Neutrophils # (Auto) 10.5 x10^3/uL (1.8-7.7) H Lymphocytes # (Auto) 2.1 x10^3/uL (1.0-4.8) Monocytes # (Auto) 1.1 x10^3/uL (0.0-1.1) Eosinophils # (Auto) 0.1 x10^3/uL (0.0-0.7) Basophils # (Auto) 0.1 x10^3/uL (0.0-0.2) Sodium Level 139 mmol/L (136-145) Potassium Level 3.6 mmol/L (3.5-5.1) Chloride Level 100 mmol/L (98-107) Carbon Dioxide Level 27 mmol/L (21-32) Anion Gap 12 (6-14) Blood Urea Nitrogen 21 mg/dL (8-26) Creatinine 2.1 mg/dL (0.7-1.3) H Estimated GFR (Cockcroft-Gault) 34.2 BUN/Creatinine Ratio 10 (6-20) Glucose Level 102 mg/dL (70-99) H Calcium Level 9.3 mg/dL (8.5-10.1) Magnesium Level 1.8 mg/dL (1.8-2.4) Total Bilirubin 0.7 mg/dL (0.2-1.0) Aspartate Amino Transferase (AST) 18 U/L (15-37) Alanine Aminotransferase (ALT) 27 U/L (16-63) Alkaline Phosphatase 120 U/L (46-116) H Creatine Kinase 138 U/L (39-308) Troponin I Quantitative < 0.017 ng/mL (0.000-0.055) ZL-Gpe-A-Type Natriuretic Peptide 69 pg/mL (0-124) Total Protein 7.5 g/dL (6.4-8.2) Albumin 4.1 g/dL (3.4-5.0) Albumin/Globulin Ratio 1.2 (1.0-1.7) Lipase 100 U/L (73-393) Laboratory Tests 10/05/19 13:45 Laboratory Tests 10/05/19 13:45 EKG EKG EKG interpreted by me. EKG at 1247 showed normal sinus rhythm at rate of 90, normal AR and QT intervals, no acute ST and T-wave elevation. Radiology/Procedures Radiology/Procedures [facility] [address] [place] [address] IMAGING REPORT Signed PATIENT: NORMA MEYER ACCOUNT: [id number] : 1975 LOCATION: ER AGE: 44 SEX: M EXAM STATUS: REG ER ORD. PHYSICIAN: BEN BEE MD REASON: chest pain PROCEDURE: CHEST PA & LATERAL CHEST PA LATERAL History: Chest pain Comparison: None. Findings: Frontal and lateral views of the chest were obtained. The cardiomediastinal silhouette is normal. Pulmonary vasculature is normal. The lungs are clear. No pleural effusion or pneumothorax is seen. There is no acute bone abnormality. IMPRESSION: No acute cardiopulmonary process. Electronically signed by: Ti Paulino MD (10/05/2019 2:27 PM) [id number] DICTATED and SIGNED BY: TI PAULINO MD DATE: 10/05/19 1427 Course & Med Decision Making Course & Med Decision Making Pertinent Labs and Imaging studies reviewed. (See chart for details) Evaluation of patient in ER showed 44-year-old male patient with heart score of 3 with complaining of intermittent episodes of substernal chest pain for couple of hours that resolved with treatment in ER. Patient had unremarkable labs except for elevation of creatinine of 2.1. Chest x-ray was unremarkable. Patient was advised to increase fluid intake and follow up with her primary care physician and quit smoking. Dragon Disclaimer Dragon Disclaimer This electronic medical record was generated, in whole or in part, using a voice recognition dictation system. Departure Departure Impression: Primary Impression: Musculoskeletal chest pain Additional Impression: Renal insufficiency Disposition: 01 HOME, SELF-CARE (at 1511) Condition: IMPROVED Referrals: KAELA HAYES MD (PCP) Patient Instructions: Chest Wall Pain Additional Instructions: Drink plenty of liquids Follow-up with your primary care physician in 3-5 days Return to ER if not getting better Tylenol as needed for pain Scripts Cyclobenzaprine Hcl (CYCLOBENZAPRINE HCL) 10 Mg Tablet 1 TAB PO TID, #21 TAB Prov: BEN BEE MD 10/05/19 The HEART Score for CP Pts HEART Score for Chest Pain: HEART Score for Chest Pain Response (Comments) Value History Slighlty/Non-Suspicious 0 ECG Nonspecific Repolarizatio 1 Age >45 - < 65 1 Risk Factors 1 or 2 Risk Factors 1 Troponin < Normal Limit 0 Total 3 Risk Factors: Risk Factors: DM, Current or recent (<one month) smoker, HTN, HLP, family history of CAD, obesity. Risk Scores: Score 0 - 3: 2.5% MACE over next 6 weeks - Discharge Home Score 4 - 6: 20.3% MACE over next 6 weeks - Admit for Clinical Observation Score 7 - 10: 72.7% MACE over next 6 weeks - Early Invasive Strategies Problem Qualifiers BEN BEE MD Oct 05, 2019 15:12
--- NOTE | 2019-10-06 06:22 | EKG ---
[facility] [address] [place] [address] Test Date: 2019-10-05 Test Time: 12:47:26 Pat Name: NORMA MEYER Department: Room: Gender: Senior Ux Developer: : 1975 Requested By: BEN BEE Order Number: [id number] Reading MD: Measurements Intervals Crane Rate: 90 P: 58 MA: 140 QRS: 40 QRSD: 96 T: 33 QT: 356 QTc: 440 Interpretive Statements SINUS RHYTHM R-S TRANSITION ZONE IN V LEADS DISPLACED TO THE LEFT NO SPECIFIC ECG ABNORMALITIES RI6.01 No previous ECG available for comparison
== END 2019-10-05 15:45 | disposition home or self-care (01) ==
LOC: ER 12:39
DX: R07.89 Other chest pain (principal); N28.9 Disorder of kidney and ureter, unspecified; R42 Dizziness and giddiness; R06.02 Shortness of breath; I10 Essential (primary) hypertension; G43.909 Migraine, unspecified, not intractable, without status migrainosus; F12.90 Cannabis use, unspecified, uncomplicated; F17.200 Nicotine dependence, unspecified, uncomplicated; Z98.890 Other specified postprocedural states; Z88.5 Allergy status to narcotic agent; Z88.6 Allergy status to analgesic agent; Z90.49 Acquired absence of other specified parts of digestive tract; Z88.8 Allergy status to other drugs, medicaments and biological substances
CPT/HCPCS: 36415; 71046; 80053; 82550; 83690; 83735; 83880; 84484; 85025; 93005; 96374; 99285; J1885

== ENCOUNTER 2020-05-08 21:50 | Emergency (ER) | payer OTHER ==
[~2020-05-08] VITALS: Ht 182.9 cm; Wt 102.1 kg
[~2020-05-08 21:50] MED LIST changes: +CYCL10TA2 PO; -LISI1TAB19 PO; +LISI1TAB37 PO
--- NOTE | 2020-05-08 22:19 | PHYS DOC ---
Past Medical History Past Medical History: Hypertension, Migraines, Renal Failure Additional Past Medical Histor: menigitis, anam mtn spotted fever, [place] Past Surgical History: Cholecystectomy, Other Additional Past Surgical Histo: lip and tongue Smoking Status: Current Every Day Smoker Additional Information: 08/25 ppd Alcohol Use: Occasionally Drug Use: Marijuana General Adult EDM: Chief Complaint: HEADACHE HPI: HPI: 44-year-old male with significant history of hypertension, migraine headaches, who presents for evaluation of headache that began earlier this afternoon, of gradual onset, described as dull and global in location. States that his current headache is similar or even less severe than prior headaches thus far in life. Also reports some mild lightheadedness, which is a typical symptom for him with headaches. No blurred vision, neck pain or stiffness, fever, chills, chest pain, dyspnea, palpitations, abdominal pain, nausea or vomiting. He also reports being without his blood pressure medication for the last month or so, found to have an elevated blood pressure upon arrival to the ED. On lisinopril/hydrochlorothiazide 20/25 mg, amlodipine 10 mg. Review of Systems: Review of Systems: Gen: No fever, chills. Eyes: No blurred vision, diplopia. ENT: No nasal congestion, sore throat. CV: No CP, palpitations. Resp. No SOB, cough. GI: No abd pain, N/V. : No dysuria, hematuria. Neuro: No paresthesia or weakness. Reports headache, mild lightheadedness. MSK: No myalgia, arthralgia, back pain. Skin: No acute rash or lesion. Heart Score: Risk Factors: Risk Factors: DM, Current or recent (<one month) smoker, HTN, HLP, family history of CAD, obesity. Risk Scores: Score 0 - 3: 2.5% MACE over next 6 weeks - Discharge Home Score 4 - 6: 20.3% MACE over next 6 weeks - Admit for Clinical Observation Score 7 - 10: 72.7% MACE over next 6 weeks - Early Invasive Strategies Current Medications: Current Medications Medications (Trade) Dose Ordered Sig/Asmita Start Time Stop Time Status Last Admin Dose Admin Diphenhydramine HCl (Benadryl) 25 mg 1X ONCE 05/08/20 22:15 05/08/20 22:16 UNV Hydralazine HCl (Apresoline Inj) 10 mg 1X ONCE 05/08/20 22:15 05/08/20 22:16 UNV Ketorolac Tromethamine (Toradol 15mg Vial) 15 mg 1X ONCE 05/08/20 22:15 05/08/20 22:16 UNV Metoclopramide HCl (Reglan Vial) 10 mg 1X ONCE 05/08/20 22:15 05/08/20 22:16 UNV Sodium Chloride 1,000 ml @ 0 mls/hr 1X ONCE 05/08/20 22:15 05/08/20 22:16 UNV Allergies: Allergies: Allergies Coded Allergies Type Severity Reaction Last Updated Verified haloperidol Allergy Intermediate "lock jaw" 04/10/14 Yes morphine Allergy Intermediate 04/30/19 Yes hydromorphone Allergy Mild Itching 07/26/15 Yes oxycodone Allergy Mild Itching 07/26/15 Yes Physical Exam: PE: Gen: NAD. Well nourished. Head: NC/AT. Eyes: No scleral icterus. No conjunctival injection. PERRL 4 mm. ENT: MMM. Posterior OP clear. Neck: Supple. NT. No meningismus. CV: RRR. Peripheral pulses intact. Resp: CTAB. No W/C/R. Abd: Soft. NT. ND. MSK: No peripheral cyanosis. No edema. Neuro: A&Ox3. Strength & sensation grossly intact throughout. No dysmetria. Skin. Warm. Dry. No acute rash. Psych: Appropriate mood & affect. Current Patient Data: Vital Signs: Vital Signs Date Time Temp Pulse Resp B/P (MAP) Pulse Ox O2 Delivery O2 Flow Rate FiO2 05/08/20 21:52 97.1 86 18 226/147 (173) 98 Room Air 97.1 EKG: EKG: EKG at 2206. Sinus rhythm. Heart rate 75. Normal intervals. No STEMI. Interpreted by me. Radiology/Procedures: Radiology/Procedures: [] Course & Med Decision Making: Course & Med Decision Making Pertinent Labs and Imaging studies reviewed. (See chart for details) In summary, 44M p/w his typical migraine, as well as HTN, having been without her BP meds for the last month or so. Elevated SBP > 200. Otherwise HDS. No cardioresp complaints. No focal neuro deficit or meningismus. Basic labs unremarkable, Cr 1.8 which is at or around baseline compared to prior. Trop neg. EKG shows no acute injury pattern. Given migraine cocktail and hydralazine for elevated BP. ENGLISH improved. I considered, but do not suspect ICH or meningitis at this time. Will DC home on fioricet, with refills of BP meds. Return precautions given. Dragon Disclaimer: Dragon Disclaimer: This electronic medical record was generated, in whole or in part, using a voice recognition dictation system. Departure Departure Impression: Primary Impression: Headache Additional Impression: Hypertension Disposition: HOME, SELF-CARE Condition: STABLE Referrals: [facility] (PCP) Patient Instructions: Hypertension During , [id number], Migraine Headache Additional Instructions: Please follow up with your primary doctor for continued maintenance of your blood pressure medication regimen. Scripts Butalbital/Aspirin/Caffeine (FIORINAL 50-325-40 MG CAPSULE) 1 Each Capsule 1 EACH PO TID PRN PRN for HEADACHE, #10 CAP Prov: RYAN MUNOZ DO 05/08/20 Amlodipine Besylate (AMLODIPINE BESYLATE) 10 Mg Tablet 10 MG PO DAILY for 30 Days, #30 TAB Prov: RYAN MUNOZ DO 05/08/20 Lisinopril/Hydrochlorothiazide (ZESTORETIC 20-25 MG TABLET) 1 Each Tablet 1 TAB PO DAILY for 30 Days, #30 TAB 0 Refills Prov: RYAN MUNOZ DO 05/08/20 Justicifation of Admission Dx: Justifications for Admission: Justification of Admission Dx: N/A RYAN MUNOZ DO May 08, 2020 22:19
[2020-05-08 22:26] LABS: BASO # 0.1 x10^3/uL (0.0-0.2); BASO % 1 % (0-3); EOS # 0.2 x10^3/uL (0.0-0.7); EOS % 2 % (0-3); HEMATOCRIT 44.2 % (39.0-53.0); HEMOGLOBIN 15.6 g/dL (13.0-17.5); LYMPH # 2.6 x10^3/uL (1.0-4.8); LYMPH % 22 % (24-48); MEAN CORPUSCULAR HEMOGLOBIN 31 pg (25-35); MEAN CORPUSCULAR HGB CONC 35 g/dL (31-37); MEAN CORPUSCULAR VOLUME 89 fL (79-100); MONO % 8 % (0-9); NEUT # 8.3 x10^3/uL (1.8-7.7); NEUT % 68 % (31-73); PLATELET COUNT 236 x10^3/uL (140-400); RED BLOOD COUNT 4.99 x10^6/uL (4.30-5.70); WHITE BLOOD COUNT 12.3 x10^3/uL (4.0-11.0)
[2020-05-08] MEDS ORDERED: diphenhydrAMINE 50 MG/ML VIAL IVP ONE (22:30)
[2020-05-08] MEDS ORDERED: KETOROLAC 15 MG/ML VIAL. IVP ONE (22:30)
[2020-05-08] MEDS ORDERED: METOCLOPRAMIDE HCL 10 MG/2 ML VIAL. IVP ONE (22:30)
[2020-05-08] MEDS ORDERED: IV NORMAL SALINE 1000ML BAG 1,000 ML IV ONE (22:30)
[2020-05-08] MEDS ORDERED: hydrALAZINE 20 MG/ML VIAL. IVP ONE (22:30)
[2020-05-08 22:34] LABS: CALCIUM 8.8 mg/dL (8.5-10.1); CREATININE 1.8 mg/dL (0.7-1.3); GFR 40.8; MAGNESIUM 2.3 mg/dL (1.8-2.4); POTASSIUM 3.7 mmol/L (3.5-5.1)
[2020-05-08] MEDS ORDERED: LISI-375 PO (23:26)
[2020-05-08] MEDS ORDERED: AMLO10TA8 PO (23:26)
[2020-05-08] MEDS ORDERED: BUTA1CAP31 PO (23:27)
[2020-05-08 23:35] VITALS: BP 189/103
--- NOTE | 2020-05-09 10:44 | EKG ---
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
== END 2020-05-08 23:37 | disposition home or self-care (01) ==
LOC: ER 21:50
DX: I10 Essential (primary) hypertension (principal); G43.909 Migraine, unspecified, not intractable, without status migrainosus; R42 Dizziness and giddiness; N19 Unspecified kidney failure; F17.200 Nicotine dependence, unspecified, uncomplicated; F12.90 Cannabis use, unspecified, uncomplicated; Z90.49 Acquired absence of other specified parts of digestive tract; Z98.890 Other specified postprocedural states; Z88.6 Allergy status to analgesic agent; Z88.5 Allergy status to narcotic agent; Z88.8 Allergy status to other drugs, medicaments and biological substances
CPT/HCPCS: 36415; 80048; 83735; 84484; 85025; 93005; 96374; 96375; 99285; J0360; J1200; J1885; J2765; J7030